=== PATIENT | male | born 1965 | race Caucasian/White ===

== ENCOUNTER 2017-06-27 16:17 | Inpatient (IN) | payer MEDICAID ==
[~2017-06-27] VITALS: Ht 182.9 cm; Wt 80.8 kg
[~2017-06-27 16:17] MED LIST: ATOR20TA40 PO; DILANTIN; FOLI1TAB90 PO; KEP500 PO; LIB25 PO; LISI-424 PO; METO50TE2 PO; MULT-405 PO; PANT40EC28 PO; PHEN1POW; THIA100T31 PO
--- NOTE | 2017-06-27 16:19 | NUR ---
PT BIBA BLS FOR GEN WEAK TO BED 1
[2017-06-27 16:20] VITALS: BP 111/66
--- NOTE | 2017-06-27 16:30 | NUR ---
PATIENT BIBA WITH COMPLAINTS OF ETOH USE AND GENERALIZED WEAKNESS. PATIENT REPORTS BEING SEEN AT [facility] YESTERDAY FOR SAME ISSUE BUT HE IS STILL NOT FEELING WELL. PATIENT HAS A HX OF EPILEPSY. DENIES N/V/D; SKIN IS PINK/WARM/DRY; AAOX4; LUNGS CLEAR BL; HR EVEN AND REGULAR; PT DENIES ANY FEVER, CP, SOB, OR COUGH AT THIS TIME; PATIENT STATES PAIN OF 8/10 AT THIS TIME; VSS; PATIENT POSITIONED FOR COMFORT; HOB ELEVATED; BEDRAILS UP X2; BED DOWN. ER MD MADE AWARE OF PT STATUS.
[2017-06-27] MEDS ORDERED: LORazepam 2 MG/ML VIAL IVP ONE (16:55)
[2017-06-27] MEDS ORDERED: MULTIVITAMIN-12 10 ML, THIAMINE 100 MG, MAGNESIUM SULFATE 50% 2,000 MG, FOLIC ACID 5 MG... IV ONE ×5 (16:55)
--- NOTE | 2017-06-27 17:31 | NUR ---
PT TAKEN TO CT
[2017-06-27 17:37] LABS: BASOPHILS # (AUTO) 0.1 K/uL (0.00-0.22); BASOPHILS % (AUTO) 1.1 % (0.0-2.0); EOSINOPHILS # (AUTO) 0.1 K/uL (0-0.4); EOSINOPHILS % (AUTO) 1.9 % (0.0-4.0); HEMATOCRIT 31.2 % (36-52); HEMOGLOBIN 10.3 g/dL (12.0-18.0); LYMPHOCYTES # (AUTO) 1.1 K/uL (2.0-11.5); LYMPHOCYTES % (AUTO) 22.1 % (20.5-51.1); MEAN CORPUSCULAR HEMOGLOBIN 29 pg (27-31); MEAN CORPUSCULAR HGB CONC 33 g/dL (33-37); MEAN CORPUSCULAR VOLUME 89.2 fL (80-94); MONOCYTES # (AUTO) 0.4 K/uL (0.8-1.0); MONOCYTES % (AUTO) 8.7 % (1.7-9.3); NEUTROPHILS # (AUTO) 3.2 K/uL (1.8-7.7); NEUTROPHILS % (AUTO) 66.2 % (42.2-75.2); PLATELET COUNT (AUTO) 135 K/uL (140-450); RED CELL DISTRIBUTION WIDTH 18.9 % (11.6-13.7); WHITE BLOOD COUNT (AUTO) 4.8 K/uL (4.8-10.8)
--- NOTE | 2017-06-27 17:45 | NUR ---
PATIENT BACK FROM CT
[2017-06-27 17:58] LABS: ALBUMIN 3.7 g/dL (3.4-5.0); ANION GAP 14.4 (8-16); CARBON DIOXIDE 27.8 mmol/L (21-32); CREATININE 0.8 mg/dL (0.7-1.3); POTASSIUM 4.2 mmol/L (3.5-5.1); TOTAL BILIRUBIN 0.5 mg/dL (0.0-1.0)
--- NOTE | 2017-06-27 18:30 | NUR ---
Oxygen applied at 2 L per minute via NASAL CANULA. 02 saturation 98% by pulse oximetry.
[2017-06-27] MEDS ORDERED: levETIRAcetam 500 MG in NACL 0.9% 100 ML IV SCH (18:45)
[2017-06-27] MEDS: NACL 0.9% 1,000 ML IV SCH (19:01)
[2017-06-27] MEDS ORDERED: MORPHINE SULFATE 4 MG/ML SYR IVP PRN (19:05)
[2017-06-27] MEDS ORDERED: HYDROcodone/APAP 7.5/325 MG 1 TAB PO PRN (19:05)
[2017-06-27] MEDS ORDERED: DOCUSATE SODIUM 100 MG GELCAP PO PRN (19:05)
[2017-06-27] MEDS ORDERED: ACETAMINOPHEN 325 MG TAB PO PRN (19:05)
[2017-06-27] MEDS ORDERED: ONDANSETRON 4 MG/2 ML VIAL IM/IVP PRN (19:05)
--- NOTE | 2017-06-27 19:15 | NUR ---
RECEIVED REPORT FROM AM NURSE. PT RESTING COMFORTABLY IN BED, RR EVEN AND UNLABORED. ALL NEEDS MET AT THIS TIME.
--- NOTE | 2017-06-27 19:20 | NUR ---
PER PT REQUEST, PT WANTED TO HAVE PT'S JEANS AND OTHER BELONGINGS THROWN AWAY, EMT AND RN AWARE.
--- NOTE | 2017-06-27 19:22 | NUR ---
PT'S REMAINING BELONGINGS TO BE SENT WITH PT.
[2017-06-27 19:25] VITALS: BP 109/72
--- NOTE | 2017-06-27 19:25 | NUR ---
RECEIVED REPORT FROM ER NURSE FOR CONTINUITY OF CARE. PT AWAKE AOX4. PT ON 2L NC. PT HAS BELONGINGS. PT HAS IV LFA 20G BANANA BAG IV 250ML/HR. NO SOB. NO S/S. OF DISTRESS. BED LOWERED. CALL LIGHT WITHIN REACH. PT ORIENTED TO ROOM. WILL CONTINUE TO MONITOR.
--- NOTE | 2017-06-27 19:30 | NUR ---
Patient will be admitted to care of GOVIL. Admited to TELE. Will go to room 112B. Belongings list completed. Report to AMINA DUGGAN AT BEDSIDE.
[2017-06-27 19:33] LABS: CHOL/HDL RATIO 1.9 (1-4.5); PHOSPHORUS 3.7 mg/dL (2.5-4.9); THYROID STIMULATING HORMONE 0.51 uIU/mL (0.34-3.74)
[2017-06-27 20:18] LABS: APPEARANCE,URINE CLEAR (CLEAR); BILIRUBIN,URINE NEGATIVE (NEGATIVE); BLOOD, URINE NEGATIVE (NEGATIVE); COLOR,URINE YELLOW (YELLOW); LEUKOCYTE ESTERASE ,URINE NEGATIVE (NEGATIVE); NITRITE, URINE NEGATIVE (NEGATIVE); UGLUCOSE NEGATIVE (NEGATIVE)
[2017-06-27 20:26] LABS: BARBITURATE, URINE NEG. ng/ml (NEG <=200); BENZODIAZEPINE, URINE POS. ng/mL (NEG <=200); CANNABINOID, URINE NEG. ng/mL (NEG <=50); COCAINE, URINE NEG. ng/mL (NEG <=300); OPIATE, URINE NEG. ng/mL (NEG <=2000); PHENCYCLIDINE SCREEN,URINE NEG. ng/mL (NEG <=25)
[2017-06-27] MEDS ORDERED: ATOR20TA PO (22:08)
[2017-06-27] MEDS ORDERED: METO25TE71 PO (22:08)
[2017-06-27] MEDS ORDERED: LISI5TAB18 PO (22:08)
[2017-06-27] MEDS ORDERED: PANT40EC PO (22:08)
[2017-06-27] MEDS ORDERED: LEVE500T9 PO (22:08)
[2017-06-27] MEDS ORDERED: MECLIZINE 25 MG TAB PO ONE (22:15)
[2017-06-28] VITALS: BP 134/87
--- NOTE | 2017-06-28 00:05 | NUR ---
ASSESSED PT VITALS PT AWAKE. WILL CONTINUE TO MONITOR.
--- NOTE | 2017-06-28 01:57 | NUR ---
ASSESSED PT. PT SLEEPING. NO SOB. NO S/S OF DISTRESS. WILL CONTINUE TO MONITOR.
--- NOTE | 2017-06-28 03:47 | NUR ---
ASSESSED PT. PT SLEEPING WILL CONTINUE TO MONITOR.
[2017-06-28 04:00] VITALS: BP 143/101
[2017-06-28] MEDS: LORazepam 1 MG TAB PO PRN ×4 (04:19→20:53)
[2017-06-28] MEDS: PANTOPRAZOLE 40 MG TABEC PO SCH (05:57)
[2017-06-28 06:20] LABS: T4 (THYROXINE) 5.1 ug/dL (4.5-12.0)
[2017-06-28 06:42] LABS: BASOPHILS % (AUTO) 1.2 % (0.0-2.0); EOSINOPHILS # (AUTO) 0.1 K/uL (0-0.4); EOSINOPHILS % (AUTO) 2.2 % (0.0-4.0); HEMATOCRIT 33.3 % (36-52); HEMOGLOBIN 10.9 g/dL (12.0-18.0); LYMPHOCYTES # (AUTO) 0.9 K/uL (2.0-11.5); LYMPHOCYTES % (AUTO) 20.6 % (20.5-51.1); MEAN CORPUSCULAR HEMOGLOBIN 29 pg (27-31); MEAN CORPUSCULAR HGB CONC 33 g/dL (33-37); MEAN CORPUSCULAR VOLUME 89.4 fL (80-94); MONOCYTES # (AUTO) 0.4 K/uL (0.8-1.0); MONOCYTES % (AUTO) 8.7 % (1.7-9.3); NEUTROPHILS # (AUTO) 2.8 K/uL (1.8-7.7); NEUTROPHILS % (AUTO) 67.3 % (42.2-75.2); PLATELET COUNT (AUTO) 129 K/uL (140-450); RED BLOOD CELL COUNT(AUTO) 3.72 MIL/uL (4.20-6.10); RED CELL DISTRIBUTION WIDTH 18.9 % (11.6-13.7); WHITE BLOOD COUNT (AUTO) 4.2 K/uL (4.8-10.8)
[2017-06-28 06:56] LABS: ANION GAP 14.8 (8-16); CARBON DIOXIDE 26.7 mmol/L (21-32); CREATININE 0.7 mg/dL (0.7-1.3); POTASSIUM 4.5 mmol/L (3.5-5.1)
[2017-06-28 07:00] LABS: MAGNESIUM 2.1 mg/dL (1.8-2.4); PHOSPHORUS 3.6 mg/dL (2.5-4.9)
--- NOTE | 2017-06-28 07:36 | NUR ---
GAVE REPORT TO DAYSHIFT NURSE AT BEDSIDE FOR CONTINUITY OF CARE.
--- NOTE | 2017-06-28 07:38 | NUR ---
RECEIVED BEDSIDE REPORT FROM GRANTS DIRECTOR NURSE. PATIENT IS AWAKE, ALERT AND ORIENTEDX4. NO SIGNS OF DISTRESS ON ROOM AIR. SEIZURE AND FALL PRECAUTIONS. IV ON L FA 20G NS AT 110ML/HR. IV IS CLEAN, DRY AND INTACT. SKIN IS INTACT BUT SCABS PRESENT ON KNEES. PATIENT ON TELE MONITOR. PATIENT IS UNSTEADY, BEDSIDE URINAL RECOMMENDED. TOLD HIM TO USE THE CALL LIGHT FOR ASSISTANCE WHEN AMBULATING. BED IN LOW POSITION. CALL LIGHT WITHIN REACH. WILL CONTINUE TO MONITOR THE PATIENT.
[2017-06-28 08:00] VITALS: BP 140/98
--- NOTE | 2017-06-28 08:07 | NUR ---
ORTHOSTATIC VITALS ARE FOLLOWS. LAYING B/P 140/98 HR 80. SITTING B/P 147/100 HR 72. STANDING B/P 141/89 HR 56. PATIENT IS VERY UNSTABLE TO AMBULATE. HE IS SHAKING AND HEART RATE DROPS TO 50'S. POLICE JUDGE ASSISTING WITH BED BATH AT THE MOMENT.
[2017-06-28] MEDS: chlordiazePOXIDE 25 MG CAP PO SCH ×3 (08:23→18:46)
[2017-06-28] MEDS: ASPIRIN 81 MG TAB.CHEW PO SCH (08:23)
[2017-06-28] MEDS: ATORVASTATIN 20 MG TAB PO SCH (08:24)
[2017-06-28] MEDS: METOPROLOL SUCCINATE 50 MG TABER PO SCH (08:24)
[2017-06-28] MEDS: MULTIVITAMIN 1 TAB PO SCH (08:24)
[2017-06-28] MEDS: FOLIC ACID 1 MG TAB PO SCH (08:24)
[2017-06-28] MEDS: levETIRAcetam 500 MG TAB PO SCH ×2 (08:24→20:52)
[2017-06-28] MEDS: THIAMINE 100 MG TAB PO SCH (08:25)
[2017-06-28] MEDS: LISINOPRIL 5 MG TAB PO SCH (08:25)
--- NOTE | 2017-06-28 08:27 | NUR ---
WILL REASSESS ORTHOSTATIC VITALS AT 10AM. ADMINISTERED MEDS ORDERED. PATIENT TOLERATED WELL. WILL CONTINUE TO MONITOR THE PATIENT.
[2017-06-28] MEDS ORDERED: NON-FORMULARY ITEM (Levetiracetam* (Keppra Xr*) 500 MG) PO SCH (09:00)
[2017-06-28] MEDS ORDERED: ATORVASTATIN 20 MG TAB PO SCH (09:00)
--- NOTE | 2017-06-28 09:09 | NUR ---
ECHO CANCELLED PER PHYSICIAN. LAST ECHO DONE ON 05-29-17.
--- NOTE | 2017-06-28 09:14 | NUR ---
PATIENT HAS BEEN SCREENED AND CATEGORIZED HIGH NUTRITION RISK. PATIENT WILL BE SEEN WITHIN 1-2 DAYS OF ADMISSION. 06/28/17 06/29/[address]
--- NOTE | 2017-06-28 09:47 | NUR ---
ORTHOSTATIC VITALS ARE FOLLOWED LAYING B/P 133/96 HR 92, SITTING B/P 135/98 HR 87, STANDING B/P 137/95 HR 119. WHEN STANDING HE HELD ON TO THE BED RAIL BECAUSE HE FEELS UNSTEADY AND SHAKY STILL. WILL TAKE HIM TO THE SHOWER AND SHAVE HIM AROUND 1000.
--- NOTE | 2017-06-28 11:00 | NUR ---
PATIENT SHOWERED WITH DEVOPS DEVELOPER ASSISTANCE AND SHAVED WITH DR SLOAN. PATIENT BACK IN BED IN STABLE CONDITION.
[2017-06-28 12:00] VITALS: BP 128/88
--- NOTE | 2017-06-28 12:22 | NUR ---
ADMINISTERED MEDS ORDERED. GAVE PRN ATIVAN FOR ALCOHOL WITHDRAWAL AND ANXIETY. WILL CONTINUE TO MONITOR THE PATIENT.
--- NOTE | 2017-06-28 14:40 | NUR ---
06/28/17 RD INITIAL ASSESSMENT COMPLETED PLEASE REFER TO NUTRITION ASSESSMENT UNDER CARE ACTIVITY FOR ESTIMATED NUTRITIONAL NEEDS. 1. CONTINUE NPO DIET MEDICALLY NECESSARY. 2. FOLLOW MD TO ADVANCE DIET ORDER. RECOMMEND REGULAR DIET WHEN APPROPRIATE. 3. PROVIDED PT WITH GENERAL DIET EDUCATION. 4. RD TO FOLLOW-UP 2-3 DAYS, HIGH RISK BEE SOTO RD
[2017-06-28] MEDS: NACL 0.9% 1,000 ML IV SCH ×3 (14:42→23:48)
--- NOTE | 2017-06-28 15:07 | NUR ---
PATIENT IS SLEEPING. NO SIGNS OF DISTRESS. WILL CONTINUE TO MONITOR THE PATIENT.
[2017-06-28 16:00] VITALS: BP 141/92
--- NOTE | 2017-06-28 17:00 | NUR ---
PATIENT IS SLEEPING. HE IS EASILY AROUSABLE. WILL CONTINUE TO MONITOR THE PATIENT.
--- NOTE | 2017-06-28 18:48 | NUR ---
ADMINISTERED MEDS. PATIENT TOLERATED WELL. WILL CONTINUE TO MONITOR THE PATIENT.
--- NOTE | 2017-06-28 19:10 | NUR ---
GAVE BEDSIDE REPORT. PATIENT IS IN STABLE CONDITION.
--- NOTE | 2017-06-28 19:12 | NUR ---
RECEIVED REPORT FROM DAY SHIFT NURSE LEE-RN. PT RESTING IN BED. AOX4, LEFT FA 20G WITH NS RUNNING AT 110ML/HR. SKIN INTACT-RIGHT KNEE SCAB. ON BEDREST. NO S/S OF RESPIRATORY DISTRESS OR DISCOMFORT NOTED AT THIS TIME. BED IN LOWEST POSITION, BED BREAKS ON, ALARM ON. BED SIDE TABLE AND CALL LIGHT WITHIN REACH. DISCUSSED PLAN OF CARE AND PT VERBALIZED UNDERSTANDING. WHITE BOARD UPDATED. WILL CONTINUE TO MONITOR.
[2017-06-28 20:00] VITALS: BP 136/82
--- NOTE | 2017-06-28 20:55 | NUR ---
VITAL SIGNS TAKEN, STABLE AT THIS TIME. SCHEDULED MEDICATION GIVEN. PT TOLERATED WELL. NO S/S OF RESPIRATORY DISTRESS OR DISCOMFORT NOTED AT THIS TIME. PT RETURNED BACK TO SLEEP. WILL CONTINUE TO MONITOR.
[2017-06-29] VITALS: BP 138/90
--- NOTE | 2017-06-29 | NUR ---
VITAL SIGNS TAKEN AND TOLERATED WELL. NO S/S OF RESPIRATORY DISTRESS OR DISCOMFORT NOTED. PT CONTINUES TO SLEEP.
--- NOTE | 2017-06-29 02:00 | NUR ---
PT CONTINUES TO SLEEP. WILL CONTINUE TO MONITOR.
[2017-06-29] MEDS: NACL 0.9% 1,000 ML IV SCH (02:10)
[2017-06-29] MEDS: LORazepam 1 MG TAB PO PRN (03:50)
[2017-06-29 04:00] VITALS: BP 129/90
--- NOTE | 2017-06-29 04:00 | NUR ---
VITAL SIGNS TAKEN AND TOLERATED WELL. NORCO GIVEN FOR HEADACHE AND BACK PAIN 05/23. NO S/S OF RESPIRATORY DISTRESS. WILL CONTINUE TO MONITOR.
[2017-06-29] MEDS: PANTOPRAZOLE 40 MG TABEC PO SCH (05:56)
--- NOTE | 2017-06-29 06:00 | NUR ---
SCHEDULED MEDICATION GIVEN AND TOLERATED WELL. NO S/S OF RESPIRATORY DISTRESS OR DISCOMFORT NOTED AT THIS TIME. WILL CONTINUE TO MONITOR.
[2017-06-29 06:23] LABS: BASOPHILS % (AUTO) 1.3 % (0.0-2.0); EOSINOPHILS # (AUTO) 0.2 K/uL (0-0.4); EOSINOPHILS % (AUTO) 4.8 % (0.0-4.0); HEMATOCRIT 35.2 % (36-52); HEMOGLOBIN 11.5 g/dL (12.0-18.0); LYMPHOCYTES # (AUTO) 0.6 K/uL (2.0-11.5); LYMPHOCYTES % (AUTO) 16.8 % (20.5-51.1); MEAN CORPUSCULAR HEMOGLOBIN 29 pg (27-31); MEAN CORPUSCULAR HGB CONC 33 g/dL (33-37); MEAN CORPUSCULAR VOLUME 89.1 fL (80-94); MONOCYTES # (AUTO) 0.4 K/uL (0.8-1.0); MONOCYTES % (AUTO) 11.2 % (1.7-9.3); NEUTROPHILS # (AUTO) 2.4 K/uL (1.8-7.7); NEUTROPHILS % (AUTO) 65.9 % (42.2-75.2); PLATELET COUNT (AUTO) 116 K/uL (140-450); RED BLOOD CELL COUNT(AUTO) 3.95 MIL/uL (4.20-6.10); RED CELL DISTRIBUTION WIDTH 19.5 % (11.6-13.7); WHITE BLOOD COUNT (AUTO) 3.7 K/uL (4.8-10.8)
[2017-06-29 06:40] LABS: ANION GAP 17.2 (8-16); CARBON DIOXIDE 24.9 mmol/L (21-32); CREATININE 0.7 mg/dL (0.7-1.3); POTASSIUM 4.1 mmol/L (3.5-5.1)
[2017-06-29 06:48] LABS: MAGNESIUM 1.9 mg/dL (1.8-2.4); PHOSPHORUS 4.3 mg/dL (2.5-4.9)
--- NOTE | 2017-06-29 07:20 | NUR ---
ENDORSED PT CARE TO DAY SHIFT NURSE-KY RN FOR CONTINUITY OF CARE. PT STABLE AT THIS TIME.
--- NOTE | 2017-06-29 07:21 | NUR ---
RECEIVED REPORT FROM SOFA INSPECTOR NURSE AT BEDSIDE FOR CONTINUITY OF CARE. PT RESTING IN BED. AOX4, IV TO LEFT FA 20G WITH NS RUNNING AT 110ML/HR. SKIN INTACT WITH RIGHT KNEE SCAB. PT ON BEDREST. USES URINAL. NO S/S OF RESPIRATORY DISTRESS OR DISCOMFORT NOTED AT THIS TIME. DISCUSSED PLAN OF CARE AND PT VERBALIZED UNDERSTANDING. WHITE BOARD UPDATED. SAFETY AND SEIZURE PRECAUTION IN PLACE, BED IN LOWEST POSITION, BED ALARM ON, BED SIDE TABLE AND CALL LIGHT WITHIN REACH. WILL CONTINUE TO MONITOR.
[2017-06-29 08:00] VITALS: BP 142/88
--- NOTE | 2017-06-29 08:15 | NUR ---
DOCTORS DOING THEIR ROUNDS. NEW ORDER IN FOR PATIENT. PATIENT NOW NO LONGER NPO, WILL BE ON REGULAR DIET. CALLED DIETARY AND SPOKE TO TYSON BOTTLE HOP, AND ASKED FOR A LATE BREAKFAST TRAY. TRAY WAS BROUGHT FOR PATIENT. PATIENT NOW SITTING UP IN BED EATING BREAKFAST. NO SIGNS OF DISTRESS OR SOB NOTED ON ROOM AIR. PATIENT DENIES PAIN AT THIS TIME. SAFETY AND SEIZURE PRECAUTION IN PLACE, CALL LIGHT WITHIN REACH. WILL CONTINUE TO MONITOR PATIENT.
[2017-06-29] MEDS: FOLIC ACID 1 MG TAB PO SCH (08:39)
[2017-06-29] MEDS: THIAMINE 100 MG TAB PO SCH (08:39)
[2017-06-29] MEDS: METOPROLOL SUCCINATE 50 MG TABER PO SCH (08:39)
[2017-06-29] MEDS: ASPIRIN 81 MG TAB.CHEW PO SCH (08:39)
[2017-06-29] MEDS: LISINOPRIL 5 MG TAB PO SCH (08:40)
[2017-06-29] MEDS: ATORVASTATIN 20 MG TAB PO SCH (08:40)
[2017-06-29] MEDS: chlordiazePOXIDE 25 MG CAP PO SCH ×2 (08:40→12:12)
[2017-06-29] MEDS: levETIRAcetam 500 MG TAB PO SCH (08:40)
[2017-06-29] MEDS: MULTIVITAMIN 1 TAB PO SCH (08:40)
--- NOTE | 2017-06-29 08:40 | NUR ---
ADMINISTERED ORDERED MEDICATIONS, PATIENT TOLERATED THEM WELL. PATIENT RESTING IN BED, NO SIGNS OF DISTRESS OR SOB NOTED ON ROOM AIR. PATIENT DENIES PAIN AT THIS TIME. SAFETY PRECAUTION IN PLACE, CALL LIGHT WITHIN REACH, WILL CONTINUE TO MONITOR PATIENT.
--- NOTE | 2017-06-29 10:43 | NUR ---
PATIENT RESTING IN BED, NO SIGNS OF DISTRESS OR SOB NOTED ON ROOM AIR. PATIENT DENIES PAIN AT THIS TIME. SAFETY AND SEIZURE PRECAUTION IN PLACE, CALL LIGHT WITHIN REACH. WILL CONTINUE TO MONITOR PATIENT.
[2017-06-29 12:00] VITALS: BP 128/84
[2017-06-29] MEDS ORDERED: LIB25 PO (12:06)
--- NOTE | 2017-06-29 12:10 | NUR ---
DISCHARGE ORDER IN. INFORMED PATIENT OF IMPENDING DISCHARGE. PATIENT REQUESTED BUS PASS. RN SPOKE TO NURSING REMOTE ENCODING CENTER MANAGER, ELEN, BUS PASS OBTAINED FOR PATIENT. PATIENT ALSO REQUESTED TO SPEAK TO TERRITORY SALES MANAGER. AVE, TERRITORY SALES MANAGER ON HIS CASE, INFORMED. SHE CAME AND SPOKE TO PATIENT. PATIENT WAS ALREADY PROVIDED RESOURCE PACKAGE. PATIENT NOW PARTIALLY CHANGED, WAITING ON SECURITY. SECURITY CAME, PATIENT NOW CHANGING AND GETTING READY FOR DISCHARGE. Addendum: 06/29/17 at 1410 by Colby Pinto RN DISREGARD NOTE WHERE SECURITY CAME. PATIENT AND RN STILL WAITING FOR SECURITY TO BRING PANTS FOR PATIENT.
--- NOTE | 2017-06-29 12:15 | NUR ---
ORDERED MEDICATIONS GIVEN. PATIENT TOLERATED IT WELL. PATIENT NOW EATING HIS LUNCH. NO SIGNS OF DISTRESS OR SOB NOTED. SAFETY PRECAUTION IN PLACE, CALL LIGHT WITHIN REACH, WILL CONTINUE TO MONITOR PATIENT.
[2017-06-29 12:26] LABS: FOLIC ACID 14.7 ng/mL (>3.0)
--- NOTE | 2017-06-29 12:40 | NUR ---
SECURITY PAGED FOR PANTS FOR PATIENT. PATIENT DISCHARGE INSTRUCTIONS AND EDUCATION GIVEN. PATIENT VERBALIZED UNDERSTANDING. IV REMOVED, IV CATHETER INTACT, MINIMAL BLEEDING NOTED. PATIENT ID BANDS REMOVED, TELE MONITOR REMOVED. PATIENT NOW WAITING FOR SECURITY TO COME AND BRING CLOTHING SO PATIENT CAN CHANGE AND BE DISCHARGE. Addendum: 06/29/17 at 1411 by Colby Pinto RN SECURITY CAME, PATIENT CHANGED AND IS READY FOR DISCHARGE.
--- NOTE | 2017-06-29 13:10 | NUR ---
PATIENT AMBULATED OFF THE FLOOR ACCOMPANIED BY RN. PATIENT TOOK ALL HIS BELONGINGS WITH HIM, PATIENT IN STABLE CONDITION. Addendum: 06/29/17 at 1419 by Colby Pinto RN BUS PASS WAS GIVEN TO PATIENT. PATIENT AMBULATED OUT OF HOSPITAL TO BUS STATION ACROSS THE STREET. PATIENT VERBALIZED PLANS ON TAKING THE BUS TO [facility].
== END 2017-06-29 13:10 | disposition home or self-care (01) | DRG 52 ==
LOC: MED 16:17 → MTU 19:04
PROVIDERS: ADMIT Family Medicine; ATTEND Family Medicine
DX: G92 Toxic encephalopathy (principal); K74.60 Unspecified cirrhosis of liver; K86.1 Other chronic pancreatitis; F10.229 Alcohol dependence with intoxication, unspecified; Y90.8 Blood alcohol level of 240 mg/100 ml or more; D64.9 Anemia, unspecified; G40.909 Epilepsy, unspecified, not intractable, without status epilepticus; I10 Essential (primary) hypertension; K21.9 Gastro-esophageal reflux disease without esophagitis; J45.909 Unspecified asthma, uncomplicated; Z81.1 Family history of alcohol abuse and dependence; G31.9 Degenerative disease of nervous system, unspecified; E86.0 Dehydration; F32.9 Major depressive disorder, single episode, unspecified; F41.9 Anxiety disorder, unspecified; M19.90 Unspecified osteoarthritis, unspecified site; F17.210 Nicotine dependence, cigarettes, uncomplicated; Z59.0 Homelessness
CPT/HCPCS: 36415; 70450; 71045; 76700; 80048; 80053; 80305; 81003; 82150; 82550; 82607; 82728; 82746; 83036; 83540; 83690; 83735; 83880; 84100; 84436; 84443; 84479; 84484; 85025; 85045; 85610; 85730; 87081; 93005; 93880; 96365; 96366; 96375; 99285; A9153; G0482; J2060; J3411; J3475; J3490; J7030; Q0092

== ENCOUNTER 2017-07-14 15:55 | Inpatient (IN) | payer MEDICAID ==
[~2017-07-14] VITALS: Ht 180.3 cm; Wt 72.6 kg
[~2017-07-14 15:55] MED LIST changes: -DILANTIN; -KEP500 PO; +LEVE500T9 PO; -LISI-424 PO; +LISI5TAB18 PO; +PANT40EC PO; -PHEN1POW
--- NOTE | 2017-07-14 15:57 | NUR ---
Patient to bed 7 by EMS at this time.
[2017-07-14 16:00] VITALS: BP 98/88
--- NOTE | 2017-07-14 16:05 | NUR ---
REPORT GIVEN TO AMINA BRADEN
--- NOTE | 2017-07-14 16:34 | NUR ---
PATIENT CAME IN WITH ETOH HISTORY OF SEIZURES. HE HAS A PAIN LEVEL OF 9
[2017-07-14] MEDS ORDERED: NACL 0.9% 1,000 ML IV ONE (16:35)
[2017-07-14] MEDS ORDERED: MULTIVITAMIN-12 10 ML, THIAMINE 100 MG, MAGNESIUM SULFATE 50% 2,000 MG, FOLIC ACID 5 MG... IV ONE ×5 (16:35)
[2017-07-14] MEDS ORDERED: MULTIVITAMIN-12 10 ML, THIAMINE 100 MG, MAGNESIUM SULFATE 50% 2,000 MG, FOLIC ACID 5 MG... IV SCH ×5 (16:58)
[2017-07-14 17:11] LABS: BASOPHILS # (AUTO) 0.1 K/uL (0.00-0.22); BASOPHILS % (AUTO) 1.7 % (0.0-2.0); EOSINOPHILS # (AUTO) 0.1 K/uL (0-0.4); EOSINOPHILS % (AUTO) 2.2 % (0.0-4.0); HEMATOCRIT 29.3 % (36-52); HEMOGLOBIN 9.6 g/dL (12.0-18.0); LYMPHOCYTES # (AUTO) 1.1 K/uL (2.0-11.5); LYMPHOCYTES % (AUTO) 35.1 % (20.5-51.1); MEAN CORPUSCULAR HEMOGLOBIN 29 pg (27-31); MEAN CORPUSCULAR HGB CONC 33 g/dL (33-37); MONOCYTES # (AUTO) 0.3 K/uL (0.8-1.0); MONOCYTES % (AUTO) 8.5 % (1.7-9.3); NEUTROPHILS # (AUTO) 1.7 K/uL (1.8-7.7); NEUTROPHILS % (AUTO) 52.5 % (42.2-75.2); PLATELET COUNT (AUTO) 115 K/uL (140-450); RED BLOOD CELL COUNT(AUTO) 3.26 MIL/uL (4.20-6.10); RED CELL DISTRIBUTION WIDTH 20.3 % (11.6-13.7); WHITE BLOOD COUNT (AUTO) 3.2 K/uL (4.8-10.8)
[2017-07-14 17:35] LABS: ANION GAP 13.3 (8-16); CARBON DIOXIDE 28.6 mmol/L (21-32); CHLORIDE 104 mmol/L (98-107); CREATININE 0.9 mg/dL (0.7-1.3); GFR ARICAN-AMERICAN 115 mL/min (>90); GLUCOSE 97 mg/dL (74-106); POTASSIUM 3.9 mmol/L (3.5-5.1); SODIUM SERUM 142 mmol/L (136-145); UREA NITROGEN, BLOOD 11 mg/dL (7-18)
[2017-07-14 17:41] LABS: ALBUMIN 3.4 g/dL (3.4-5.0); ASPARTATE AMINOTRANSFERASE 77 U/L (15-37); TOTAL BILIRUBIN 0.2 mg/dL (0.0-1.0)
[2017-07-14 17:46] LABS: SALICYLATE < 2.8 mg/dL (2.8-20.0)
[2017-07-14] MEDS ORDERED: NACL 0.9% 1,000 ML IV SCH (17:56)
[2017-07-14 18:30] LABS: ACETONE, SERUM NEGATIVE (NEGATIVE)
[2017-07-14 18:31] LABS: AMYLASE 92 U/L (25-115); LIPASE 477 U/L (73-393)
[2017-07-14] MEDS ORDERED: ACETAMINOPHEN 325 MG TAB PO PRN (18:50)
--- NOTE | 2017-07-14 18:59 | NUR ---
U/A WAS COLLECTED AND LAB WAS NOTIFIED
[2017-07-14 19:13] LABS: APPEARANCE,URINE CLEAR (CLEAR); BILIRUBIN,URINE NEGATIVE (NEGATIVE); BLOOD, URINE NEGATIVE (NEGATIVE); COLOR,URINE YELLOW (YELLOW); LEUKOCYTE ESTERASE ,URINE NEGATIVE (NEGATIVE); NITRITE, URINE NEGATIVE (NEGATIVE); UGLUCOSE NEGATIVE (NEGATIVE)
[2017-07-14 19:22] LABS: BARBITURATE, URINE NEG. ng/ml (NEG <=200); BENZODIAZEPINE, URINE POS. ng/mL (NEG <=200); CANNABINOID, URINE NEG. ng/mL (NEG <=50); COCAINE, URINE NEG. ng/mL (NEG <=300); OPIATE, URINE NEG. ng/mL (NEG <=2000); PHENCYCLIDINE SCREEN,URINE NEG. ng/mL (NEG <=25)
[2017-07-14 19:52] LABS: PROTHROMBIN TIME 12.8 secs (10.8-13.4)
--- NOTE | 2017-07-14 19:58 | NUR ---
Patient will be admitted to care of DR. AGUILLON. Admited to TELE. Will go to room 120A. Belongings list completed. Report to AMINA GUERIN.
[2017-07-14 20:01] LABS: CHOL/HDL RATIO 1.7 (1-4.5); FREE T4 (FREE THYROXINE) 0.8 ng/dL (0.76-1.46); MAGNESIUM 1.7 mg/dL (1.8-2.4); PHOSPHORUS 4.8 mg/dL (2.5-4.9); THYROID STIMULATING HORMONE 1.32 uIU/mL (0.34-3.74)
[2017-07-14 20:05] VITALS: BP 84/48
--- NOTE | 2017-07-14 20:05 | NUR ---
RECEIVED PT REPORT AT BEDSIDE FROM ER NURSE FOR CONTINUITY OF CARE. PT IS AAOX3. PT IS INTOXICATED WITH ALCOHOL AND ORDERED BEDREST. PT HAS NO SOB NO S/S OF DISTRESS. ON 2L NC O2. BED LOWERED ORIENTED TO ROOM. WILL CONTINUE TO MONITOR.
[2017-07-14] MEDS: DOCUSATE SODIUM 100 MG GELCAP PO SCH (21:00)
[2017-07-14] MEDS: NACL 0.9% 1,000 ML IV SCH (23:00)
--- NOTE | 2017-07-14 23:36 | NUR ---
PT AWAKE 1L OF BOLUS AND 1L OF BANANA BAG GIVEN. PT HAS URINAL WILL CONTINUE TO MONITOR LOW BP.
[2017-07-15] VITALS: BP 99/58
[2017-07-15 04:00] VITALS: BP 110/69
--- NOTE | 2017-07-15 06:53 | NUR ---
PATIENT HAS BEEN SCREENED AND CATEGORIZED HIGH NUTRITION RISK. PATIENT WILL BE SEEN WITHIN 1-2 DAYS OF ADMISSION. 07/15/17-07/16/[address] Addendum: 07/15/17 at [address] ADDENDUM: PATIENT HAS BEEN RESCREENED AND RE-CATEGORIZED MODERATE NUTRITION RISK. PATIENT WILL BE SEEN WITHIN 3-5 DAYS OF ADMISSION. 07/17/17-07/19/[address]
--- NOTE | 2017-07-15 07:29 | NUR ---
GAVE REPORT TO DAYSHIFT NURSE FOR CONTINUITY OF CARE.
--- NOTE | 2017-07-15 07:30 | NUR ---
RECEIVED REPORT FROM MEAT BONER NURSE OLGA LIDIA AT BEDSIDE FOR CONTINUITY OF CARE. PT IS AWAKE AND ORIENTED X4. INTRODUCED SELF AND UPDATED BOARD. PT DENIES PAIN. ON RA WITH O2 SAT 97%. NO SOB. LUNG SOUNDS CLEAR ON AUSCULTATION. SKIN WARM AND DRY. PT WITH BOILS ON NECK. PT EATING BREAKFAST IN BED NOW. NO SIGNS OF DISTRESS. CALL LIGHT WITHIN REACH. BED IN LOW POSITION. WILL CONTINUE TO MONITOR.
[2017-07-15 08:00] VITALS: BP 106/70
[2017-07-15] MEDS: DOCUSATE SODIUM 100 MG GELCAP PO SCH ×2 (09:00→20:36)
[2017-07-15] MEDS: FOLIC ACID 1 MG TAB PO SCH (09:23)
[2017-07-15] MEDS: MULTIVITAMIN 1 TAB PO SCH (09:23)
[2017-07-15] MEDS: chlordiazePOXIDE 25 MG CAP PO SCH ×3 (09:23→17:00)
--- NOTE | 2017-07-15 09:23 | NUR ---
ADMINISTERED SCHEDULED MEDS. NO ADMIN COLACE. PT STATED HE HAD DIARRHEA YESTERDAY AND REFUSED MED. TOLERATED ADMIN MEDS WELL. NO SIGNS OF DISTRESS. PT VOIDED IN URINAL 200ML OUTPUT. CALL LIGHT WITHIN REACH. WILL CONTINUE TO MONITOR.
[2017-07-15] MEDS: THIAMINE 100 MG TAB PO SCH (09:24)
--- NOTE | 2017-07-15 10:30 | NUR ---
PT USED BEDPAN AND HAD LARGE BM. CLEANED PT AND CHANGED LINENS AND GOWN. NO SIGNS OF DISTRESS. WILL CONTINUE TO MONITOR.
[2017-07-15 12:00] VITALS: BP 104/88
--- NOTE | 2017-07-15 12:57 | NUR ---
STARTED NEW IV TO R FA 20G. D/C IV TO L FA 18G. PT TOLERATED WELL. ADMINISTERED SCHEDULED MEDS. PT TOLERATED WELL. NO SIGNS OF DISTRESS. PT RESTING COMFORTABLY IN BED WATCHING TV AND SMILING. CALL LIGHT WITHIN REACH. BED IN LOW POSITION. WILL CONTINUE TO MONITOR.
[2017-07-15] MEDS ORDERED: METOPROLOL SUCCINATE 50 MG TABER PO SCH (13:57)
[2017-07-15] MEDS ORDERED: LISINOPRIL 5 MG TAB PO SCH (14:04)
--- NOTE | 2017-07-15 14:26 | NUR ---
PT BP WAS 141/87. ADMINISTERED METOPROLOL AND LISINOPRIL ORDERED. PT TOLERATED MEDS WELL. LYING COMFORTABLY IN BED RIGHT NOW WATCHING TV. CALL LIGHT WITHIN REACH. BED IN LOW POSITION. WILL CONTINUE TO MONITOR.
[2017-07-15] MEDS ORDERED: LACTULOSE 20 GM/30 ML UDC PO SCH (15:00)
[2017-07-15] MEDS ORDERED: MAG SULF 2000 MG/WATER PREMIX 50 ML IV SCH (15:00)
[2017-07-15] MEDS ORDERED: LIDOCAINE 1% 500 MG/50 ML VIAL INJ SCH (15:57)
[2017-07-15 16:00] VITALS: BP 129/88
[2017-07-15] MEDS ORDERED: LIDOCAINE 2% 1000 MG/50 ML VIAL INJ SCH (16:02)
[2017-07-15] MEDS: NACL 0.9% 1,000 ML IV SCH ×2 (16:06→23:49)
[2017-07-15] MEDS ORDERED: MORPHINE SULFATE 2 MG/ML SYR IVP PRN (16:20)
--- NOTE | 2017-07-15 16:30 | NUR ---
DR. BRANCH AT BEDSIDE FOR I&D OF POSTERIOR NECK ABSCESS. PROCEDURE DONE WITH LIDOCAINE INJ. PACKED WITH IODOFORM AND COVERED WITH GUAZE. PT TOLERATED WELL. CULTURE OF ABSCESS OBTAINED AND SENT TO LAB.
--- NOTE | 2017-07-15 17:30 | NUR ---
APPLIED K-PAD TO NECK. PT TOLERATING WELL. STATED "HIS NECK FEELS BETTER AND THE PAIN MEDICINE HELPED." NO SIGNS OF DISTRESS. CALL LIGHT WITHIN REACH. WILL CONTINUE TO MONITOR.
--- NOTE | 2017-07-15 19:10 | NUR ---
ENDORSED PT TO PUZZLE ASSEMBLER NURSE OLGA LIDIA AT BEDSIDE FOR CONTINUITY OF CARE. PT IN STABLE CONDITION.
--- NOTE | 2017-07-15 19:15 | NUR ---
RECEIVED REPORT AT BEDSIDE FROM DAYSNVFT NURSE FOR CONTINUITY OF CARE. PT AAOX4. PT IV NOTED RFA 20G NS 150ML/HR. NO SOB NO S/S OF DISTRESS. BED LOWERED CALL LIGHT WITHIN REACH WILL CONTINUE TO MONITOR.
[2017-07-15 20:00] VITALS: BP 151/90
[2017-07-15] MEDS: SULFAMETH/TRIMETH DS 800/160MG 1 TAB PO SCH (20:35)
[2017-07-15] MEDS: ATORVASTATIN 20 MG TAB PO SCH (20:36)
[2017-07-15] MEDS: LORazepam 2 MG/ML VIAL IVP PRN (20:37)
[2017-07-15] MEDS: levETIRAcetam 500 MG TAB PO SCH (20:37)
[2017-07-15] MEDS ORDERED: levETIRAcetam 500 MG TAB PO SCH (21:00)
[2017-07-16] VITALS: BP 128/90
[2017-07-16] MEDS: oxyCODONE/APAP 5/325 MG 1 TAB TAB PO PRN ×2 (02:20→18:36)
[2017-07-16 04:00] VITALS: BP 126/95
[2017-07-16] MEDS: NACL 0.9% 1,000 ML IV SCH ×3 (05:47→22:51)
[2017-07-16] MEDS: PANTOPRAZOLE 40 MG TABEC PO SCH (05:47)
[2017-07-16] MEDS ORDERED: PANTOPRAZOLE 40 MG TABEC PO SCH (06:30)
--- NOTE | 2017-07-16 07:25 | NUR ---
GAVE REPORT TO DAYSHIFT NURSE AT BEDSIDE FOR CONTINUITY OF CARE. WILL CONTINUE TO MONITOR.
--- NOTE | 2017-07-16 07:26 | NUR ---
RECEIVED REPORT FROM MENTAL HEALTH CASE MANAGER NURSE OLGA LIDIA AT BEDSIDE FOR CONTINUITY OF CARE. PT IS AWAKE AND ORIENTED. INTRODUCED SELF AND UPDATED BOARD. PT NPO STATUS. DENIES PAIN. DRESSING TO POSTERIOR NECK DRY AND INTACT. K-PAD APPLIED TO NECK. TOLERATING WELL. NO SIGNS OF DISTRESS. CALL LIGHT WITHIN REACH. BED IN LOW POSITION, WHEELS LOCKED. WILL CONTINUE TO MONITOR.
[2017-07-16 07:37] LABS: HEMATOCRIT 33.9 % (36-52); HEMOGLOBIN 11.1 g/dL (12.0-18.0); MEAN CORPUSCULAR HEMOGLOBIN 29 pg (27-31); MEAN CORPUSCULAR HGB CONC 33 g/dL (33-37); MEAN CORPUSCULAR VOLUME 89.8 fL (80-94); RED BLOOD CELL COUNT(AUTO) 3.77 MIL/uL (4.20-6.10); RED CELL DISTRIBUTION WIDTH 19.6 % (11.6-13.7); WHITE BLOOD COUNT (AUTO) 3.5 K/uL (4.8-10.8)
[2017-07-16 07:44] LABS: PHOSPHORUS 3.6 mg/dL (2.5-4.9)
[2017-07-16 07:49] LABS: PLATELET COUNT (AUTO) 130 K/uL (140-450)
[2017-07-16 08:00] VITALS: BP 119/87
[2017-07-16 08:08] LABS: LYMPHOCYTES % (MANUAL) 36 % (20-46); MONOCYTES % (MANUAL) 9 % (5-12)
[2017-07-16] MEDS ORDERED: METOPROLOL SUCCINATE 50 MG TABER PO SCH (09:00)
[2017-07-16] MEDS ORDERED: LISINOPRIL 5 MG TAB PO SCH (09:00)
[2017-07-16] MEDS: DOCUSATE SODIUM 100 MG GELCAP PO SCH ×2 (09:00→21:00)
[2017-07-16] MEDS ORDERED: ATORVASTATIN 20 MG TAB PO SCH (09:00)
[2017-07-16] MEDS: chlordiazePOXIDE 25 MG CAP PO SCH ×3 (09:09→16:16)
[2017-07-16] MEDS: FOLIC ACID 1 MG TAB PO SCH (09:10)
[2017-07-16] MEDS: LISINOPRIL 5 MG TAB PO SCH (09:10)
[2017-07-16] MEDS: METOPROLOL SUCCINATE 50 MG TABER PO SCH (09:10)
[2017-07-16] MEDS: THIAMINE 100 MG TAB PO SCH (09:10)
[2017-07-16] MEDS: MULTIVITAMIN 1 TAB PO SCH (09:11)
[2017-07-16] MEDS: CALCIUM CARB 600 MG TAB PO SCH (09:11)
[2017-07-16] MEDS: SULFAMETH/TRIMETH DS 800/160MG 1 TAB PO SCH ×2 (09:11→21:11)
[2017-07-16] MEDS: levETIRAcetam 500 MG TAB PO SCH ×2 (09:11→21:11)
[2017-07-16 12:00] VITALS: BP 138/88
[2017-07-16] MEDS: LORazepam 2 MG/ML VIAL IVP PRN (13:21)
--- NOTE | 2017-07-16 13:21 | NUR ---
PT REQUESTED ATIVAN. STATED HE WAS FEELING A LITTLE SHAKY AND ANXIOUS. ADMINISTERED ATIVAN IVP. PT TOLERATED WELL. IV PUMP WAS BEEPING, PRIMED LINE. NO SIGNS OF DISTRESS. CALL LIGHT WITHIN REACH. WILL CONTINUE TO MONITOR.
[2017-07-16] MEDS: metroNIDAZOLE 250 MG/NS PREMIX 50 ML IV SCH ×2 (14:26→21:10)
--- NOTE | 2017-07-16 15:00 | NUR ---
PT SLEEPING IN BED COMFORTABLY. NO SIGNS OF DISTRESS. VOIDED IN URINAL 500ML. CALL LIGHT WITHIN REACH.
[2017-07-16 15:03] LABS: ANION GAP 14.1 (8-16); CARBON DIOXIDE 27.1 mmol/L (21-32); CREATININE 0.8 mg/dL (0.7-1.3); POTASSIUM 4.2 mmol/L (3.5-5.1)
[2017-07-16 16:00] VITALS: BP 120/76
--- NOTE | 2017-07-16 19:15 | NUR ---
ENDORSED PT TO FIELD CARE ADVOCATE NURSE LEANDER AT BEDSIDE FOR CONTINUITY OF CARE. PT IN STABLE CONDITION.
--- NOTE | 2017-07-16 19:16 | NUR ---
RECEIVED REPORT FROM DAY SHIFT NURSE. AAOX4. NO C/O PAIN. NO RESP DISTRESS NOTED. IV TO RIGHT FA #20G, NS AT 100 ML INFUSING WELL. DRESSING TO POSTERIOR NECK CLEAN, DRY AND INTACT, DISCUSSED PLAN OF CARE, PT VERBALIZED UNDERSTANDING. FALL AND SEIZURE PRECAUTION IN PLACE. CALL LIGHT WITHIN REACH.
[2017-07-16 20:00] VITALS: BP 135/86
[2017-07-16] MEDS: ATORVASTATIN 20 MG TAB PO SCH (21:11)
--- NOTE | 2017-07-16 21:30 | NUR ---
PT REFUSED COLACE. PT STATED HE HAD SOFT STOOL THIS MORNING.
[2017-07-17] VITALS: BP 117/78
[2017-07-17] MEDS: LORazepam 2 MG/ML VIAL IVP PRN (00:03)
--- NOTE | 2017-07-17 00:07 | NUR ---
PT STATED HE'S ANXIOUS. ATIVAN 2 MG IVP GIVEN. NO DISTRESS NOTED.
--- NOTE | 2017-07-17 03:16 | NUR ---
PT SLEEPING BUT EASILY AROUSABLE. RESP EVEN AND UNLABORED. NO S/S OF PAIN OR DISCOMFORT. FALL AND SEIZURE PRECAUTION IN PLACE. CALL LIGHT WITHIN REACH.
[2017-07-17 04:00] VITALS: BP 119/71
[2017-07-17] MEDS: metroNIDAZOLE 250 MG/NS PREMIX 50 ML IV SCH ×2 (04:33→13:18)
--- NOTE | 2017-07-17 05:40 | NUR ---
PT RESTING IN BED WITH EYES CLOSED. NO S/S OF DISTRESS NOTED. NO S/S OF PAIN OR DISCOMFORT. CALL LIGHT WITHIN REACH.
[2017-07-17] MEDS: PANTOPRAZOLE 40 MG TABEC PO SCH (05:54)
[2017-07-17 06:25] LABS: BASOPHILS % (AUTO) 1.5 % (0.0-2.0); EOSINOPHILS # (AUTO) 0.2 K/uL (0-0.4); EOSINOPHILS % (AUTO) 6.7 % (0.0-4.0); HEMOGLOBIN 10.8 g/dL (12.0-18.0); LYMPHOCYTES # (AUTO) 0.8 K/uL (2.0-11.5); LYMPHOCYTES % (AUTO) 23.9 % (20.5-51.1); MEAN CORPUSCULAR HEMOGLOBIN 30 pg (27-31); MEAN CORPUSCULAR HGB CONC 33 g/dL (33-37); MEAN CORPUSCULAR VOLUME 90.1 fL (80-94); MONOCYTES # (AUTO) 0.3 K/uL (0.8-1.0); MONOCYTES % (AUTO) 10.4 % (1.7-9.3); NEUTROPHILS # (AUTO) 1.9 K/uL (1.8-7.7); NEUTROPHILS % (AUTO) 57.5 % (42.2-75.2); PLATELET COUNT (AUTO) 129 K/uL (140-450); RED BLOOD CELL COUNT(AUTO) 3.67 MIL/uL (4.20-6.10); RED CELL DISTRIBUTION WIDTH 19.3 % (11.6-13.7); WHITE BLOOD COUNT (AUTO) 3.4 K/uL (4.8-10.8)
[2017-07-17 06:44] LABS: ANION GAP 13.5 (8-16); CARBON DIOXIDE 24.3 mmol/L (21-32); CREATININE 0.8 mg/dL (0.7-1.3); POTASSIUM 3.8 mmol/L (3.5-5.1)
[2017-07-17 06:58] LABS: MAGNESIUM 1.8 mg/dL (1.8-2.4); PHOSPHORUS 4.1 mg/dL (2.5-4.9)
--- NOTE | 2017-07-17 07:15 | NUR ---
ENDORSED PT TO DAY SHIFT NURSE. PT IN STABLE CONDITION.
--- NOTE | 2017-07-17 07:30 | NUR ---
RECEIVED REPORT FROM DAY ROBOTIC MACHINE OPERATOR NURSE. PT IS AAOX4. NO C/O PAIN AT THIS TIME. NO RESP DISTRESS NOTED. IV TO RIGHT FA #20G, NS AT 100 ML INFUSING WELL, DRESSING POSTERIOR NECK NOTED, DRESSING DRY AND INTACT, DISCUSSED PLAN OF CARE, PT VERBALIZED UNDERSTANDING. FALL AND SEIZURE PRECAUTION IN PLACE. CALL LIGHT WITHIN REACH.
[2017-07-17 08:00] VITALS: BP 118/80
[2017-07-17] MEDS: NACL 0.9% 1,000 ML IV SCH (08:51)
[2017-07-17] MEDS: DOCUSATE SODIUM 100 MG GELCAP PO SCH ×2 (09:00→09:33)
[2017-07-17 09:07] LABS: TRANSFERRIN 303 mg/dL (200-370)
[2017-07-17] MEDS: levETIRAcetam 500 MG TAB PO SCH (09:30)
[2017-07-17] MEDS: THIAMINE 100 MG TAB PO SCH (09:30)
[2017-07-17] MEDS: MULTIVITAMIN 1 TAB PO SCH (09:31)
[2017-07-17] MEDS: SULFAMETH/TRIMETH DS 800/160MG 1 TAB PO SCH (09:32)
[2017-07-17] MEDS: chlordiazePOXIDE 25 MG CAP PO SCH ×3 (09:32→17:07)
[2017-07-17] MEDS: CALCIUM CARB 600 MG TAB PO SCH (09:34)
[2017-07-17] MEDS: METOPROLOL SUCCINATE 50 MG TABER PO SCH (09:35)
[2017-07-17] MEDS: LISINOPRIL 5 MG TAB PO SCH (09:35)
[2017-07-17] MEDS: FOLIC ACID 1 MG TAB PO SCH (09:36)
--- NOTE | 2017-07-17 09:41 | NUR ---
SOME MEDS DONT SCAN, MANUALLY ENTERED BARCODE
[2017-07-17 12:00] VITALS: BP 129/82
[2017-07-17] MEDS: oxyCODONE/APAP 5/325 MG 1 TAB TAB PO PRN (13:18)
[2017-07-17 16:00] VITALS: BP 135/95
--- NOTE | 2017-07-17 16:00 | NUR ---
DRESSING TO POSTERIOR NECK CHANGED, SEE WOUND ASSESSMENT NOTES
[2017-07-17] MEDS ORDERED: SULF1TAB12 PO (16:09)
[2017-07-17] MEDS ORDERED: PANT40EC28 PO (16:09)
--- NOTE | 2017-07-17 17:20 | NUR ---
PT DISCHARGED PER MD ORDER. DISCHARGE INSTRUCTION AND MED TEACHING PROVIDED. PT VERBALIZED UNDERSTANDING. PT IN STABLE CONDITION. NO S/S OF ACUTE DISTRESS NOTED. DENIES PAIN AT THIS TIME. PT IS AWARE OF HIS SCHEDULED APPT. WHEELED PT TO LOBBY. HOMELESS RESOURCES PROVIDED. TWO BUS PASSES PROVIDED. PT TOOK ALL HIS BELONGINGS.
[2017-07-18 07:17] LABS: FOLIC ACID > 20.00 ng/mL (>3.0)
[2017-07-18 14:02] LABS: FERRITIN 24 ng/mL (30-400)
== END 2017-07-17 17:20 | disposition home or self-care (01) | DRG 951 ==
LOC: MED 15:55 → MTU 18:53
PROVIDERS: ADMIT General Practice; ATTEND General Practice
PROC: 0W960ZZ Drainage of Neck, Open Approach (ICD-10-PCS; principal; 2017-07-15)
DX: F10.129 Alcohol abuse with intoxication, unspecified (principal); G92 Toxic encephalopathy; I95.9 Hypotension, unspecified; L02.11 Cutaneous abscess of neck; K70.30 Alcoholic cirrhosis of liver without ascites; K72.90 Hepatic failure, unspecified without coma; E83.42 Hypomagnesemia; K86.1 Other chronic pancreatitis; D64.9 Anemia, unspecified; G40.909 Epilepsy, unspecified, not intractable, without status epilepticus; I10 Essential (primary) hypertension; Y90.8 Blood alcohol level of 240 mg/100 ml or more; K21.9 Gastro-esophageal reflux disease without esophagitis; M06.9 Rheumatoid arthritis, unspecified; Z59.0 Homelessness; M19.90 Unspecified osteoarthritis, unspecified site; F14.90 Cocaine use, unspecified, uncomplicated
CPT/HCPCS: 36415; 70450; 71045; 80048; 80053; 80305; 81003; 82009; 82140; 82150; 82550; 82607; 82728; 82746; 83036; 83540; 83605; 83690; 83735; 83880; 84100; 84439; 84443; 84484; 85025; 85045; 85610; 85730; 87070; 87075; 87081; 87186; 87205; 93005; 99285; A9153; G0480; G0482; J2001; J2060; J2270; J3411; J3475; J3490; J7030

== ENCOUNTER 2017-07-25 23:02 | Emergency (ER) | payer MEDICAID ==
[~2017-07-25] VITALS: Ht 180.3 cm; Wt 77.1 kg
[~2017-07-25 23:02] MED LIST changes: +SULF1TAB12 PO
--- NOTE | 2017-07-25 23:04 | NUR ---
PT BIBA BLS. TAKEN TO BED 9
[2017-07-25 23:10] VITALS: BP 109/75
--- NOTE | 2017-07-25 23:15 | NUR ---
51YO M BIBA ETOH, ALOC. ALERT AND ORIENTED X3. DOES NOT KNOW DATE. PT IS HOMLESS AND FOUND ALTERD. PT ADMITS TO DRINKING AN UNKNOW AMOUNT. PMH SEIZURES, CIRROHSIS, PANCREATITIS, GI BLEED
--- NOTE | 2017-07-25 23:38 | NUR ---
Dr. Napier evaluating patient at bedside.
--- NOTE | 2017-07-25 23:48 | NUR ---
PT O2 SAT AT 88. N/C APPLIED AT 3L O2 SAT AT 100%
--- NOTE | 2017-07-25 23:53 | NUR ---
PT STATES HE IS HUNGRY, JOSÉ MIGUEL AUGUSTIN OK W/ PT HAVING SANDWICH, HOUSE SUP CALLED PT PROVIDED W/ SANDWICH .
--- NOTE | 2017-07-26 01:00 | NUR ---
PT IN BED SLEEPING, VSS, WILL CONTINUE TO MONITOR.
[2017-07-26 03:28] VITALS: BP 108/70
--- NOTE | 2017-07-26 03:29 | NUR ---
Patient discharged with v/s stable. Written and verbal after care instructions given and explained. Patient verbalized understanding. Ambulatory with steady gait. All questions addressed prior to discharge. Advised to follow up with PMD.
== END 2017-07-26 03:29 | disposition home or self-care (01) ==
LOC: MED 23:02
DX: F10.10 Alcohol abuse, uncomplicated (principal); J45.909 Unspecified asthma, uncomplicated; K21.9 Gastro-esophageal reflux disease without esophagitis; I10 Essential (primary) hypertension; Z79.899 Other long term (current) drug therapy
CPT/HCPCS: 99283

== ENCOUNTER 2017-07-27 20:27 | Emergency (ER) | payer MEDICAID ==
[~2017-07-27] VITALS: Ht 180.3 cm; Wt 74.8 kg
[2017-07-27 20:27] VITALS: BP 99/57
[2017-07-27] MEDS ORDERED: NACL 0.9% 1,000 ML IV ONE (20:40)
[2017-07-27 20:56] LABS: BASOPHILS # (AUTO) 0.1 K/uL (0.00-0.22); BASOPHILS % (AUTO) 1.6 % (0.0-2.0); EOSINOPHILS # (AUTO) 0.2 K/uL (0-0.4); HEMATOCRIT 30.6 % (36-52); HEMOGLOBIN 10.1 g/dL (12.0-18.0); LYMPHOCYTES # (AUTO) 1.2 K/uL (2.0-11.5); LYMPHOCYTES % (AUTO) 35.9 % (20.5-51.1); MEAN CORPUSCULAR HEMOGLOBIN 29 pg (27-31); MEAN CORPUSCULAR HGB CONC 33 g/dL (33-37); MEAN CORPUSCULAR VOLUME 87.8 fL (80-94); MONOCYTES # (AUTO) 0.3 K/uL (0.8-1.0); MONOCYTES % (AUTO) 9.5 % (1.7-9.3); NEUTROPHILS # (AUTO) 1.7 K/uL (1.8-7.7); PLATELET COUNT (AUTO) 208 K/uL (140-450); RED BLOOD CELL COUNT(AUTO) 3.49 MIL/uL (4.20-6.10); RED CELL DISTRIBUTION WIDTH 19.2 % (11.6-13.7); WHITE BLOOD COUNT (AUTO) 3.5 K/uL (4.8-10.8)
[2017-07-27 21:13] LABS: ALBUMIN 3.4 g/dL (3.4-5.0); CARBON DIOXIDE 29.4 mmol/L (21-32); CREATININE 0.9 mg/dL (0.7-1.3); POTASSIUM 4.4 mmol/L (3.5-5.1); TOTAL BILIRUBIN 0.2 mg/dL (0.0-1.0)
[2017-07-28] MEDS ORDERED: KETOROLAC 30 MG/ML VIAL IVP ONE (04:20)
[2017-07-28 05:13] VITALS: BP 144/97
== END 2017-07-28 05:13 | disposition home or self-care (01) ==
LOC: MED 20:27
DX: F10.129 Alcohol abuse with intoxication, unspecified (principal); R10.9 Unspecified abdominal pain; J45.909 Unspecified asthma, uncomplicated; K21.9 Gastro-esophageal reflux disease without esophagitis; I10 Essential (primary) hypertension; F17.210 Nicotine dependence, cigarettes, uncomplicated
CPT/HCPCS: 36415; 80053; 85025; 96361; 96374; 99284; G0482; J1885; J7030

== ENCOUNTER 2017-08-06 19:29 | Emergency (ER) | payer MEDICAID ==
[~2017-08-06] VITALS: Ht 180.3 cm; Wt 72.6 kg
[2017-08-06 19:31] VITALS: BP 123/76
--- NOTE | 2017-08-06 19:31 | NUR ---
BIBA TO ER BED 11
--- NOTE | 2017-08-06 19:31 | NUR ---
PATIENT PRESENTS TO ED WITH GENERALIZED BODY PAINA AND ETOH. BIB EMS. 911 CALLED BY BHUPENDRA WHO SAW PT'S SIGNIFICANT OTHER HARRASING HIM. PT STATES GENERALIZED PAIN AND HAS, "DRANK A LOT OF ALCOHOL TODAY." DENIES N/V/D; SKIN IS PINK/WARM/DRY; AAOX4 WITH EVEN AND UNSTEADY GAIT; LUNGS CLEAR BL; HR EVEN AND REGULAR; PT DENIES ANY FEVER, CP, SOB, OR COUGH AT THIS TIME; PATIENT STATES PAIN OF 8/10 AT THIS TIME; VSS; PATIENT POSITIONED FOR COMFORT; HOB ELEVATED; BEDRAILS UP X2; BED DOWN. ER MD MADE AWARE OF PT STATUS. CONTINUE TO MONITOR.
[2017-08-06] MEDS ORDERED: MULTIVITAMIN-12 10 ML, THIAMINE 100 MG, MAGNESIUM SULFATE 50% 2,000 MG, FOLIC ACID 1 MG... IV ONE ×5 (19:50)
[2017-08-06] MEDS ORDERED: NACL 0.9% 1,000 ML IV ONE (19:50)
[2017-08-06] MEDS ORDERED: FOLIC ACID 5 MG/ML SYR ONE (19:58)
[2017-08-06] MEDS ORDERED: MULTIVITAMIN-12 10 ML VIAL IV ONE (19:58)
[2017-08-06] MEDS ORDERED: THIAMINE 200 MG/2 ML VIAL ONE (19:58)
[2017-08-06] MEDS ORDERED: MAGNESIUM SULFATE 50% 1000 MG/2 ML VIAL IV ONE (19:58)
[2017-08-06 20:21] LABS: BASOPHILS % (AUTO) 0.9 % (0.0-2.0); EOSINOPHILS # (AUTO) 0.1 K/uL (0-0.4); HEMATOCRIT 35.6 % (36-52); HEMOGLOBIN 11.7 g/dL (12.0-18.0); LYMPHOCYTES # (AUTO) 0.7 K/uL (2.0-11.5); MEAN CORPUSCULAR HEMOGLOBIN 29 pg (27-31); MEAN CORPUSCULAR HGB CONC 33 g/dL (33-37); MEAN CORPUSCULAR VOLUME 87.5 fL (80-94); MONOCYTES # (AUTO) 0.3 K/uL (0.8-1.0); MONOCYTES % (AUTO) 8.8 % (1.7-9.3); NEUTROPHILS # (AUTO) 2.4 K/uL (1.8-7.7); NEUTROPHILS % (AUTO) 67.3 % (42.2-75.2); PLATELET COUNT (AUTO) 65 K/uL (140-450); RED BLOOD CELL COUNT(AUTO) 4.06 MIL/uL (4.20-6.10); RED CELL DISTRIBUTION WIDTH 19.5 % (11.6-13.7); WHITE BLOOD COUNT (AUTO) 3.6 K/uL (4.8-10.8)
[2017-08-06 20:36] LABS: ALBUMIN 4.5 g/dL (3.4-5.0); ANION GAP 19.7 (8-16); CARBON DIOXIDE 24.8 mmol/L (21-32); CREATININE 1.1 mg/dL (0.7-1.3); POTASSIUM 4.5 mmol/L (3.5-5.1); TOTAL BILIRUBIN 0.5 mg/dL (0.0-1.0)
--- NOTE | 2017-08-06 21:00 | NUR ---
PT IN BED RESTING WITH EYES CLOSED. VSS. CONTINUE TO MONITOR.
--- NOTE | 2017-08-06 23:00 | NUR ---
PT IN BED RESTING WITH EYES CLOSED. VSS. CONTINUE TO MONITOR.
[2017-08-07 00:30] VITALS: BP 128/71
--- NOTE | 2017-08-07 00:30 | NUR ---
Patient presented to facility under the influence of Alcohol. Patient is currently ambulatory with steady gait, able to walk unassisted. Positive gag reflex. Alert and oriented. Is not driving self for discharge out of facility.Patient discharged with v/s stable. Written and verbal after care instructions given and explained. Patient verbalized understanding. Ambulatory with steady gait. All questions addressed prior to discharge. Advised to follow up with PMD.
== END 2017-08-07 00:30 | disposition home or self-care (01) ==
LOC: MED 19:29
DX: F10.129 Alcohol abuse with intoxication, unspecified (principal); J45.909 Unspecified asthma, uncomplicated; K21.9 Gastro-esophageal reflux disease without esophagitis; I10 Essential (primary) hypertension; Z79.899 Other long term (current) drug therapy
CPT/HCPCS: 80053; 85025; 96365; 96366; 99285; A9153; G0482; J3411; J3475; J3490; J7030

== ENCOUNTER 2017-08-11 12:46 | Emergency (ER) | payer MEDICAID ==
[~2017-08-11] VITALS: Ht 180.3 cm; Wt 77.1 kg
--- NOTE | 2017-08-11 12:48 | NUR ---
PT BIBA BLS TO BED 11
[2017-08-11 12:49] VITALS: BP 93/56
--- NOTE | 2017-08-11 12:50 | NUR ---
51YO M BIBA FOR GENERALIZED WEAKNESS AND ETOH. PT AWAKE AND ALERT AND ORIENTED. PER PARAMEDICS, PATIENT FOUND BEHIND STORE BY THE DUMSTER. SMELL OF ALCOHOL. PT ADMITS TO DRINKING PINT OF VODKA LAST NIGHT AND A BEER THIS MORNING. NO MEAL X3 DAYS PER PATIENT. NOT TAKING HIS MEDS/STOLEN FROM HIM. USED TO TAKE KEPPRA UNK. DOSAGE. PT STATES N/V, BS ACTIVE X4, ABD SOFT AND TENDER, PT STATES ABD IS "ALWASY SENSITIVE" . LS CLEAR THROUGHOUT. HX: ALCOHOLISM,DEPRESSION,SEIZURE,ANXIETY BP FIELD 87/70 STARTED IVD NSS BOLUS
[2017-08-11] MEDS ORDERED: MULTIVITAMIN-12 10 ML, THIAMINE 100 MG, MAGNESIUM SULFATE 50% 2,000 MG, FOLIC ACID 5 MG... IV ONE ×5 (13:05)
[2017-08-11] MEDS ORDERED: MULTIVITAMIN-12 10 ML, THIAMINE 100 MG, MAGNESIUM SULFATE 50% 2,000 MG, FOLIC ACID 5 MG... IV SCH ×5 (13:15)
[2017-08-11 13:30] LABS: HEMATOCRIT 29.3 % (36-52); HEMOGLOBIN 9.6 g/dL (12.0-18.0); MEAN CORPUSCULAR HEMOGLOBIN 30 pg (27-31); MEAN CORPUSCULAR HGB CONC 33 g/dL (33-37); MEAN CORPUSCULAR VOLUME 90.5 fL (80-94); PLATELET COUNT (AUTO) 60 K/uL (140-450); RED BLOOD CELL COUNT(AUTO) 3.24 MIL/uL (4.20-6.10); RED CELL DISTRIBUTION WIDTH 20.1 % (11.6-13.7); WHITE BLOOD COUNT (AUTO) 2.1 K/uL (4.8-10.8)
[2017-08-11 13:59] LABS: EOSINOPHILS % (MANUAL) 6 % (0-4); LYMPHOCYTES % (MANUAL) 31 % (20-46); MONOCYTES % (MANUAL) 5 % (5-12)
[2017-08-11 14:36] LABS: ANION GAP 18.1 (8-16); CARBON DIOXIDE 21.7 mmol/L (21-32); CHLORIDE 101 mmol/L (98-107); CREATININE 1.3 mg/dL (0.7-1.3); GFR ARICAN-AMERICAN 75 mL/min (>90); GLUCOSE 86 mg/dL (74-106); POTASSIUM 3.8 mmol/L (3.5-5.1); SODIUM SERUM 137 mmol/L (136-145); UREA NITROGEN, BLOOD 10 mg/dL (7-18)
[2017-08-11 14:41] LABS: ALBUMIN 3.6 g/dL (3.4-5.0); ASPARTATE AMINOTRANSFERASE 127 U/L (15-37); SALICYLATE < 2.8 mg/dL (2.8-20.0); TOTAL BILIRUBIN 0.3 mg/dL (0.0-1.0)
[2017-08-11 14:42] LABS: ACETAMINOPHEN < 0.5 ug/ml (10-30)
--- NOTE | 2017-08-11 15:30 | NUR ---
PT OFFERED FOOD TRAY.
--- NOTE | 2017-08-11 17:20 | NUR ---
PT RESTING IN NO APPEARENT DISTRESS, WILL CONTINUE TO MONITOR
[2017-08-11 17:35] LABS: BARBITURATE, URINE NEG. ng/ml (NEG <=200); BENZODIAZEPINE, URINE POS. ng/mL (NEG <=200); CANNABINOID, URINE NEG. ng/mL (NEG <=50); COCAINE, URINE NEG. ng/mL (NEG <=300); OPIATE, URINE NEG. ng/mL (NEG <=2000); PHENCYCLIDINE SCREEN,URINE NEG. ng/mL (NEG <=25)
--- NOTE | 2017-08-11 18:35 | NUR ---
PT APPEARS TO BE SLEEPING, RESPIRATIONS EVEN AND UNLABORED
[2017-08-11 19:10] VITALS: BP 110/66
== END 2017-08-11 19:10 | disposition home or self-care (01) ==
LOC: MED 12:46
DX: F10.129 Alcohol abuse with intoxication, unspecified (principal); J45.909 Unspecified asthma, uncomplicated; I10 Essential (primary) hypertension; K21.9 Gastro-esophageal reflux disease without esophagitis; Z79.899 Other long term (current) drug therapy
CPT/HCPCS: 36415; 80053; 80305; 81002; 85025; 93005; 96365; 96366; 99285; A9153; G0480; G0482; J3411; J3475; J3490; J7030

== ENCOUNTER 2017-09-10 22:15 | Emergency (ER) | payer MEDICAID ==
[~2017-09-10] VITALS: Ht 180.3 cm; Wt 86.2 kg
[2017-09-10 22:18] VITALS: BP 128/80
[2017-09-10] MEDS ORDERED: LORazepam 1 MG TAB PO ONE (23:00)
[2017-09-11 02:00] VITALS: BP 115/68
== END 2017-09-11 02:00 | disposition home or self-care (01) ==
LOC: MED 22:15
DX: F10.129 Alcohol abuse with intoxication, unspecified (principal); K21.9 Gastro-esophageal reflux disease without esophagitis; J45.909 Unspecified asthma, uncomplicated; I10 Essential (primary) hypertension; Z79.899 Other long term (current) drug therapy; Y90.9 Presence of alcohol in blood, level not specified
CPT/HCPCS: 99283

== ENCOUNTER 2017-09-23 23:17 | Emergency (ER) | payer MEDICAID, OTHER ==
[~2017-09-23] VITALS: Ht 180.3 cm; Wt 81.6 kg
[~2017-09-23 23:17] MED LIST changes: +THIA-34 PO; -THIA100T31 PO
--- NOTE | 2017-09-23 23:18 | NUR ---
PT PLACED IN HOSPITAL GOWN, CONNECTED TO PULSE OX, B/P, AND COMMUNITY SUPPORT WORKER, SEIZURE PADS IN PLACE, PT PROVIDED W/ URINAL.
--- NOTE | 2017-09-23 23:18 | NUR ---
PT ROBERT BLS. TAKEN TO BED 2
[2017-09-23 23:21] VITALS: BP 112/77
--- NOTE | 2017-09-23 23:32 | NUR ---
BIBA FOR ETOH, PT ADMITS TO DRINKING MOST OF THE DAY "MALT LIQUOR AND HURRICANES". PT IS AWAKE, EXCESSIVE SPEECH, CONFUSED, ORIENTED TO NAME AND PLACE. VSS, PERRL. PT HAS ROUND, MOVEABLE, LUMP NOTED TO LEFT UNDERARM, NO PAIN. PT DENIES OTHER SYMPTOMS OF CP, N/V/D.
--- NOTE | 2017-09-23 23:34 | NUR ---
Dr. Sumner evaluating patient at bedside.
--- NOTE | 2017-09-24 00:35 | NUR ---
PT LAYING IN BED SLEEPING , VSS, WILL CONTINUE TO MONITOR.
--- NOTE | 2017-09-24 01:30 | NUR ---
PT SLEEPING IN BED, AROUSABLE TO NAME, STILL HAS EXCESSIVE/SLURRED SPEECH, WILL CONTINUE TO MNOITOR.
--- NOTE | 2017-09-24 02:30 | NUR ---
PT SLEEPING IN BED, WILL CONTINUE TO MONITOR.
[2017-09-24 04:23] VITALS: BP 106/58
--- NOTE | 2017-09-24 04:23 | NUR ---
Patient discharged with v/s stable. Written and verbal after care instructions given and explained. Patient verbalized understanding. Ambulatory with steady gait. All questions addressed prior to discharge. Advised to follow up with PMD. PT PROVIDED W/ HOMELESS RESOURCES AND BUS PASS. PT STATES HE WILL BE TAKING BUS TO [place] [facility].
== END 2017-09-24 04:23 | disposition home or self-care (01) ==
LOC: MED 23:17
DX: F10.129 Alcohol abuse with intoxication, unspecified (principal); K21.9 Gastro-esophageal reflux disease without esophagitis; J45.909 Unspecified asthma, uncomplicated; I10 Essential (primary) hypertension; K74.60 Unspecified cirrhosis of liver; Z79.2 Long term (current) use of antibiotics; Z79.899 Other long term (current) drug therapy
CPT/HCPCS: 99283

== ENCOUNTER 2017-12-18 22:10 | Emergency (ER) | payer OTHER ==
[~2017-12-18] VITALS: Ht 175.3 cm; Wt 72.6 kg
[2017-12-18 22:12] VITALS: BP 98/64
== END 2017-12-18 23:58 | disposition left against medical advice (07) ==
LOC: MED 22:10
DX: R47.81 Slurred speech (principal); Z53.21 Procedure and treatment not carried out due to patient leaving prior to being seen by health care provider

== ENCOUNTER 2018-11-21 15:13 | Emergency (ER) | payer OTHER ==
[~2018-11-21] VITALS: Ht 182.9 cm; Wt 74.8 kg
[2018-11-21 15:24] VITALS: BP 107/60
--- NOTE | 2018-11-21 15:28 | NUR ---
Note alvin in EDM - 11/21/18 at 1530 by CATERINA BIB [facility] W/ C/O E[facility], GENERAL BODY ACHE, VOMOITING. PER PT HE HAD 3 BEERS TODAY. WAS D/C YESTERDAY AT [facility] FOR THE SAME DX. HX: ETOH, CIRRHOSIS, GERD, HTN, ASTHMA
--- NOTE | 2018-11-21 15:30 | NUR ---
BIB [facility] [place] W/ C/O EOTH, GENERAL BODY ACHE, VOMOITING. PER PT HE HAD 3 BEERS TODAY. WAS D/C YESTERDAY AT [facility] FOR THE SAME DX. HX: ETOH, CIRRHOSIS, GERD, HTN, ASTHMA
[2018-11-21] MEDS ORDERED: DOCU50SO2 GT (15:36)
[2018-11-21] MEDS ORDERED: NACL 0.9% 1,000 ML IV ONE (15:40)
[2018-11-21] MEDS ORDERED: FAMOTIDINE 20 MG TAB PO ONE (16:35)
--- NOTE | 2018-11-21 17:00 | NUR ---
PT REPORTS THAT HE IS HOMELESS, CHOOSES TO RETURN TO PREVIOUS LIVING ARRANGEMENT IN A STREET IN [place]. BUS PASS PROVIDED. SANDWICH AND DRINKS WERE PROVIDED. PT WITH APPROPRIATE CLOTHING FOR WEATHER.
[2018-11-21 17:07] VITALS: BP 127/73
--- NOTE | 2018-11-21 17:09 | NUR ---
Patient discharged with v/s stable. Written and verbal after care instructions given and explained. Patient alert, oriented and verbalized understanding of instructions. Ambulatory with steady gait. All questions addressed prior to discharge. ID band removed. Patient advised to follow up with PMD. Rx of PRILOSEC given. Patient educated on indication of medication including possible reaction and side effects. Opportunity to ask questions provided and answered.
== END 2018-11-21 17:07 | disposition home or self-care (01) ==
LOC: MED 15:13
DX: F10.129 Alcohol abuse with intoxication, unspecified (principal); K21.9 Gastro-esophageal reflux disease without esophagitis; J45.909 Unspecified asthma, uncomplicated; I10 Essential (primary) hypertension; Z79.899 Other long term (current) drug therapy
CPT/HCPCS: 99283; J7030

== ENCOUNTER 2018-12-28 23:32 | Emergency (ER) | payer OTHER ==
[~2018-12-28] VITALS: Ht 172.7 cm; Wt 74.8 kg
[~2018-12-28 23:32] MED LIST changes: +DOCU50SO2 GT
[2018-12-28 23:39] VITALS: BP 121/84
--- NOTE | 2018-12-28 23:43 | NUR ---
BIBA PLACE IN BED 8. PATIENT AAO. PLACE ON MONITOR AND PUT IN GOWN.
--- NOTE | 2018-12-28 23:50 | NUR ---
53 Y/O MALE BIBA WITH C/O OF CHRONIC 9/10 FULL BODY ACUTE PAIN IN [place], LEGS, BACK AND ARMS. STATES HE HAD SEIZURES, UNWITNESSED. A/OX4; FOLLOWS COMMANDS; BREATHING UNLABORED. SKIN:NOTED PIMPLES/WELTS IN THE BACK.DRINKS HEAVILY, LAST DRINK AROUND 5PM. DENIES N/V/D. ERMD MADE AWARE. SIDE RAILX1.SEIZURE PRECAUTIONS IMPLEMENTED. PLACED ON MONITOR. VSS. WILL CONTINUE TO MONITOR. HX: EPILEPSY, ALCOHOLISM, CIRRHOSIS, GERD, RA, MIGRAINES, PANCREATIC CANCER. RX:DENIES MEDICATION NKDA
--- NOTE | 2018-12-28 23:56 | NUR ---
20 GAUGE IV STARTED IN RIGHT HAND FLUSHED EASILY WITH GOOD BLOOD RETURN. PATIENT TOLERATED WELL.
--- NOTE | 2018-12-29 01:50 | NUR ---
PATIENT STATES HIS PAIN IS A 5/10 AT THIS TIME. HE ALSO STATES, "I JUST WANT TO GET SOME SLEEP." VSS. WILL CONTINUE TO MONITOR.
[2018-12-29] MEDS ORDERED: DIAZEPAM 5 MG TAB PO ONE (01:55)
--- NOTE | 2018-12-29 02:24 | NUR ---
PATIENT PROVIDED WITH D/C INSTRUCTIONS AND HOMELESS PACKET. GIVEN A NEW SET OF PANTS AND GIVEN A BUS PASS. STATES HE WANTS TO GO BACK TO THE STREETS IN [place]. STATES HE WILL TAKE THE BUS WHEN IT STARTS RUNNING AND PLANS TO STAY IN LOBBY UNTIL THEN. VSS, STATES PAIN STILL PRESENT BUT BETTER THAN WHEN HE CAME IN. AMB WITH STEADY GAIT.
[2018-12-29 02:35] VITALS: BP 121/84
== END 2018-12-29 02:24 | disposition home or self-care (01) ==
LOC: MED 23:32
DX: G40.909 Epilepsy, unspecified, not intractable, without status epilepticus (principal); F10.10 Alcohol abuse, uncomplicated; J45.909 Unspecified asthma, uncomplicated; K21.9 Gastro-esophageal reflux disease without esophagitis; I10 Essential (primary) hypertension; G43.909 Migraine, unspecified, not intractable, without status migrainosus; Z79.899 Other long term (current) drug therapy
CPT/HCPCS: 99282; 99283

== ENCOUNTER 2019-08-15 07:00 | Emergency (ER) | payer OTHER ==
[~2019-08-15] VITALS: Ht 182.9 cm; Wt 74.8 kg
[2019-08-15 07:12] VITALS: BP 129/96
--- NOTE | 2019-08-15 07:26 | NUR ---
PT AMBULATED TO ER BED 09.
--- NOTE | 2019-08-15 07:40 | NUR ---
53 Y/O BIB SELF C/O LEFT ATYPICAL CHEST PAIN THAT BEGAN YESTERDAY. DRY COUGH X3 DAYS. DENIES SOB. PT STATES HE IS EPILEPTIC AND HAD A SEIZURE YESTERDAY, WAS TAKEN TO [facility] AND DISCHARGED AT 3AM. PT STATES HIS BACKPACK WAS STOLEN AND ALL OF HIS MEDS WERE STOLEN WELL. RESP EVEN AND UNLABORED. PT DENIES ANY FEVER/SOB/CHILLS. AAOX4.
--- NOTE | 2019-08-15 07:40 | NUR ---
XRAY AT BEDSIDE
[2019-08-15 07:50] LABS: BASOPHILS % (AUTO) 1.6 % (0.0-2.0); EOSINOPHILS % (AUTO) 1.2 % (0.0-4.0); HEMATOCRIT 36.7 % (36-52); HEMOGLOBIN 11.9 g/dL (12.0-18.0); LYMPHOCYTES # (AUTO) 0.4 K/uL (2.0-11.5); LYMPHOCYTES % (AUTO) 14.8 % (20.5-51.1); MEAN CORPUSCULAR HEMOGLOBIN 31 pg (27-31); MEAN CORPUSCULAR HGB CONC 32 g/dL (33-37); MEAN CORPUSCULAR VOLUME 94.2 fL (80-94); MONOCYTES # (AUTO) 0.3 K/uL (0.8-1.0); MONOCYTES % (AUTO) 9.5 % (1.7-9.3); NEUTROPHILS # (AUTO) 2.2 K/uL (1.8-7.7); NEUTROPHILS % (AUTO) 72.9 % (42.2-75.2); PLATELET COUNT (AUTO) 70 K/uL (140-450); RED BLOOD CELL COUNT(AUTO) 3.89 MIL/uL (4.20-6.10); RED CELL DISTRIBUTION WIDTH 17.8 % (11.6-13.7)
[2019-08-15 08:29] LABS: ALBUMIN 4.2 g/dL (3.4-5.0); ANION GAP 18.9 (8-16); CARBON DIOXIDE 25.1 mmol/L (21-32); CREATININE 0.8 mg/dL (0.6-1.3)
[2019-08-15 09:25] VITALS: BP 132/85
== END 2019-08-15 09:52 | disposition home or self-care (01) ==
LOC: MED 07:00
DX: R07.9 Chest pain, unspecified (principal); K21.9 Gastro-esophageal reflux disease without esophagitis; K74.60 Unspecified cirrhosis of liver; R05 Cough; R03.0 Elevated blood-pressure reading, without diagnosis of hypertension; R56.9 Unspecified convulsions; Z59.0 Homelessness
CPT/HCPCS: 36415; 71045; 80053; 83880; 84484; 85025; 93005; 99285; Q0092

== ENCOUNTER 2019-09-26 10:01 | Inpatient (IN) | payer OTHER ==
[~2019-09-26] VITALS: Ht 182.9 cm; Wt 74.8 kg
[~2019-09-26 10:01] MED LIST changes: -DOCU50SO2 GT; -PANT40EC PO; -SULF1TAB12 PO
[2019-09-26 10:08] VITALS: BP 118/80
--- NOTE | 2019-09-26 10:10 | NUR ---
A 53 [address]ESS [address]IB[address]RE[address] C/O GENERALIZED WEAKNESS, STERNAL BURNING SENSATION ON THE BUS TODAY AFTER BEING DISCHARGE FROM [facility] FOR ETOH. PT STATES HE HAS BEEN HOSPITALIZED AT [facility] FOR 2 DAYS. PER EMS BLOOS SUGAR 117 ON SCENE. PT HAD BOWEL MOVEMENT ON HIS PANTS AND HE STATES HE DID NOT REALIZED THAT. HR EVEN AND REGULAR; PT DENIES ANY FEVER, CP, SOB, OR COUGH AT THIS TIME; PATIENT STATES PAIN OF 6/10 AT THIS TIME; VSS; PATIENT POSITIONED FOR COMFORT; HOB ELEVATED; BEDRAILS UP WITH SEIZURE PADS X2; BED DOWN. ER MD MADE AWARE OF PT STATUS.
[2019-09-26] MEDS ORDERED: NACL 0.9% 1,000 ML IV ONE ×2 (10:20→11:45)
--- NOTE | 2019-09-26 10:33 | NUR ---
PT STATES HE HAS NOT TAKEN KEPPRA 500MG TODAY.
[2019-09-26] MEDS ORDERED: levETIRAcetam 500 MG TAB PO ONE (10:35)
[2019-09-26 10:36] LABS: BASOPHILS # (AUTO) 0.1 K/uL (0.00-0.22); BASOPHILS % (AUTO) 1.1 % (0.0-2.0); EOSINOPHILS % (AUTO) 0.3 % (0.0-4.0); HEMATOCRIT 35.6 % (36-52); HEMOGLOBIN 11.7 g/dL (12.0-18.0); LYMPHOCYTES # (AUTO) 0.5 K/uL (2.0-11.5); LYMPHOCYTES % (AUTO) 10.5 % (20.5-51.1); MEAN CORPUSCULAR HEMOGLOBIN 31 pg (27-31); MEAN CORPUSCULAR HGB CONC 33 g/dL (33-37); MEAN CORPUSCULAR VOLUME 94.1 fL (80-94); MONOCYTES # (AUTO) 0.5 K/uL (0.8-1.0); MONOCYTES % (AUTO) 11.5 % (1.7-9.3); NEUTROPHILS # (AUTO) 3.6 K/uL (1.8-7.7); NEUTROPHILS % (AUTO) 76.6 % (42.2-75.2); PLATELET COUNT (AUTO) 160 K/uL (140-450); RED BLOOD CELL COUNT(AUTO) 3.78 MIL/uL (4.20-6.10); RED CELL DISTRIBUTION WIDTH 16.7 % (11.6-13.7); WHITE BLOOD COUNT (AUTO) 4.7 K/uL (4.8-10.8)
--- NOTE | 2019-09-26 10:49 | NUR ---
CALLED FOR SOCIAL SERVICE AND WAS TOLD BY KENZIE THERE IS NO VICE PRESIDENT [employer]ELOPMENT TODAY, SO NO ONE WILL COME IN FOR SS AT THIS TIME. Addendum: 09/26/19 [address] MALDONADO MADE AWARE.
[2019-09-26 11:00] LABS: ALBUMIN 4.2 g/dL (3.4-5.0); ANION GAP 15.7 (8-16); CARBON DIOXIDE 26.6 mmol/L (21-32); CREATININE 0.7 mg/dL (0.6-1.3); POTASSIUM 3.3 mmol/L (3.5-5.1); TOTAL BILIRUBIN 0.9 mg/dL (0.0-1.0)
--- NOTE | 2019-09-26 11:35 | NUR ---
PT HAD ONE EPISODE OF MILD SEIZURE WHICH LASTED 35 SECONDS. PT HAD FECAL AND URINARY INCONTINENCE ON HIS DIAPER. CLEANED PT AND CHANGED A NEW DIAPER. DR. MALDONADO MADE AWARE.
--- NOTE | 2019-09-26 12:36 | NUR ---
DR. ALEMAN IS EVALUATING PT AT BEDSIDE.
[2019-09-26] MEDS ORDERED: HYDROcodone/APAP 5/325 MG 1 TAB TAB PO PRN ×2 (12:40)
[2019-09-26] MEDS ORDERED: ACETAMINOPHEN 325 MG TAB PO PRN (12:40)
[2019-09-26] MEDS ORDERED: LORazepam 2 MG/ML VIAL IVP PRN ×2 (12:40→12:50)
[2019-09-26] MEDS ORDERED: cefTRIAXone 1,000 MG VIAL ONE (12:46)
[2019-09-26] MEDS: chlordiazePOXIDE 25 MG CAP PO SCH ×2 (13:01→16:57)
[2019-09-26] MEDS: KCL 20 MEQ/WATER INJ PREMIX 100 ML IV SCH ×3 (13:10→16:37)
[2019-09-26 13:21] LABS: APPEARANCE,URINE CLEAR (CLEAR); BILIRUBIN,URINE NEGATIVE (NEGATIVE); BLOOD, URINE NEGATIVE (NEGATIVE); COLOR,URINE YELLOW (YELLOW); LEUKOCYTE ESTERASE ,URINE NEGATIVE (NEGATIVE); NITRITE, URINE NEGATIVE (NEGATIVE); UGLUCOSE NEGATIVE (NEGATIVE)
[2019-09-26 13:35] LABS: PROTHROMBIN TIME 12.5 secs (10.8-13.4)
--- NOTE | 2019-09-26 13:50 | NUR ---
PT IS SLEEPING IN THE BED. VSS SHOWS ON THE MONITOR WILL CONTINUE MONITORING HIS VITAL SIGNS.
--- NOTE | 2019-09-26 15:11 | NUR ---
DISCHARGE PLANNING: THIS IS A 53 Y/O HOMELESS MALE PATIENT, WHO CAME IN DUE TO SEIZURE. PAST MEDICAL HISTORY INCLUDE SEIZURE DISORDER, ETOH ABUSE, ETOH CIRRHOSIS, HTN, ASTHMA. INITIAL DIAGNOSIS OF SEIZURE. CURRENT LABS INCLUDE WBC 4.7, H/H 11.7/35.6, NA/K 136/3.3, BUN/CREA 6/0.7. ON ROCEPHIN, KEPPRA AND LIBRIUM. DC PLAN PENDING ON PATIENT'S RESPONSE TO TREATMENT.
--- NOTE | 2019-09-26 15:30 | NUR ---
PT URINATED ON HIS DIAPER. CLEANED PT AND NEW DIAPER AND GOWN CHANGED.
[2019-09-26 15:50] VITALS: BP 153/94
--- NOTE | 2019-09-26 15:50 | NUR ---
Patient will be admitted to care of SEIZURE DISORDER. Admited to TELE. Will go to room 107B. Belongings list completed. Report to AMINA GAYTAN.
--- NOTE | 2019-09-26 15:50 | NUR ---
RECEIVED BEDSIDE REPORT FROM ED NURSE. PT RESTING IN BED. ABLE TO MAKE NEEDS KNOWN. RESPIRATIONS EVEN AND UNLABORED WITH NO SOB OR RESPIRATORY DISTRESS. SKIN WARM AND DRY TO TOUCH. MRSA COLLECTED AND SENT. SAFETY MEASURES IN PLACE. WILL CONTINUE TO MONITOR
--- NOTE | 2019-09-26 16:57 | NUR ---
ADMINISTERED SCHED MED PRESCRIBED PER MD ORDER. PT TOLERATED WELL. WILL CONTINUE TO MONITOR
--- NOTE | 2019-09-26 18:03 | NUR ---
PT COMPLAINED OF MODERATE GENERALIZED PAIN. PRN PAIN MEDICATION ADMINISTERED PRESCRIBED PER MD ORDER. PT TOLERATED WELL. WILL CONTINUE TO MONITOR
--- NOTE | 2019-09-26 19:20 | NUR ---
ENDORSED AT BEDSIDE TO NIGHTSHIFT NURSE FOR CONTINUITY OF CARE. PT IS STABLE
--- NOTE | 2019-09-26 19:20 | NUR ---
RECEIVED PT AAOX4 , NID - O2 SAT WNL , ON S2 PREC. IV SITE INTACT AND PATENT .SAFETY MEASURES IN PLACE . C/O HEART BURN - HE SAID HE HAD HX OF GERD - WILL REFER TO CSW . PLAN OF CARE DISCUSSED AND VERBALIZE UNDERSTANDING - CALL LIGHT WITHIN REACH . PT REQUESTING NEW T -SHIRT AND SHORT AND BUS PASSES - WILL ENDORSE IT JOSE . Addendum: 09/27/19 at 0802 by Alicia Felix RN PT IS ON TELE MONITOR.
[2019-09-26 20:00] VITALS: BP 140/86
[2019-09-26] MEDS ORDERED: PANTOPRAZOLE 40 MG TABEC PO ONE ×2 (20:20→20:46)
[2019-09-26] MEDS: levETIRAcetam 500 MG TAB PO SCH (22:00)
[2019-09-27] VITALS: BP 133/75
--- NOTE | 2019-09-27 | NUR ---
MADE ROUNDS , NO S/SX OF ACUTE DISTRESS NOTED . WILL CONT. TO MONITOR .
--- NOTE | 2019-09-27 02:00 | NUR ---
SLEEPING - ON TELE MONITOR.
[2019-09-27 04:00] VITALS: BP 134/65
--- NOTE | 2019-09-27 04:00 | NUR ---
MADE ROUNDS , NO S/SX OF ACUTE DISTRESS NOTED . WILL CONT. TO MONITOR
--- NOTE | 2019-09-27 06:00 | NUR ---
MADE ROUNDS , NO COMPLAIN MADE .
[2019-09-27 06:30] LABS: BASOPHILS % (AUTO) 1.1 % (0.0-2.0); EOSINOPHILS # (AUTO) 0.1 K/uL (0-0.4); EOSINOPHILS % (AUTO) 3.2 % (0.0-4.0); HEMATOCRIT 37.7 % (36-52); HEMOGLOBIN 12.4 g/dL (12.0-18.0); LYMPHOCYTES # (AUTO) 1.1 K/uL (2.0-11.5); LYMPHOCYTES % (AUTO) 27.2 % (20.5-51.1); MEAN CORPUSCULAR HEMOGLOBIN 31 pg (27-31); MEAN CORPUSCULAR HGB CONC 33 g/dL (33-37); MEAN CORPUSCULAR VOLUME 95.4 fL (80-94); MONOCYTES # (AUTO) 0.3 K/uL (0.8-1.0); MONOCYTES % (AUTO) 7.9 % (1.7-9.3); NEUTROPHILS # (AUTO) 2.4 K/uL (1.8-7.7); NEUTROPHILS % (AUTO) 60.6 % (42.2-75.2); PLATELET COUNT (AUTO) 134 K/uL (140-450); RED BLOOD CELL COUNT(AUTO) 3.95 MIL/uL (4.20-6.10); RED CELL DISTRIBUTION WIDTH 16.7 % (11.6-13.7); WHITE BLOOD COUNT (AUTO) 3.9 K/uL (4.8-10.8)
--- NOTE | 2019-09-27 07:19 | NUR ---
ENDORSED TO AM SHIFT - PT - STABLE .
[2019-09-27 07:31] LABS: ALBUMIN 4.1 g/dL (3.4-5.0); ANION GAP 18.6 (8-16); CARBON DIOXIDE 23.6 mmol/L (21-32); CREATININE 0.6 mg/dL (0.6-1.3); MAGNESIUM 1.8 mg/dL (1.8-2.4); PHOSPHORUS 3.6 mg/dL (2.5-4.9); POTASSIUM 3.2 mmol/L (3.5-5.1); TOTAL BILIRUBIN 0.9 mg/dL (0.0-1.0)
[2019-09-27 08:00] VITALS: BP 118/83
--- NOTE | 2019-09-27 08:00 | NUR ---
RECEIVED REPORT FROM AMINA SYED. PATIENT ALERT AWAKE ORIENTED X4, NOT IN ANY DISTRESS NOTED. INITIAL ASSESSMENT INITIATED. WITH IVF ON GOING AND INFUSING WELL. ON HEART MONITOR SHOWS SR/ST NO ECTOPY NOTED. NEEDS ATTENDED, WILL CONTINUE TO MONITOR.
[2019-09-27] MEDS: chlordiazePOXIDE 25 MG CAP PO SCH ×2 (08:09→12:22)
[2019-09-27] MEDS: levETIRAcetam 500 MG TAB PO SCH (08:11)
[2019-09-27] MEDS ORDERED: ENOXAPARIN 40 MG/0.4 ML SYR SUBQ SCH (09:00)
[2019-09-27] MEDS ORDERED: PANTOPRAZOLE 40 MG TABEC PO SCH (09:00)
--- NOTE | 2019-09-27 09:00 | NUR ---
DUE MEDICATIONS GIVEN AND TOLERATED WELL. SEEN BY DR. ALEMAN AND DISCUSSED THE PLAN OF CARE. FOR DC TODAY. WILL FOLLOW UP PHARMACY FOR NEW MEDICATIONS.
--- NOTE | 2019-09-27 09:01 | NUR ---
PATIENT HAS BEEN SCREENED AND CATEGORIZED LOW NUTRITION RISK. PATIENT WILL BE SEEN WITHIN 7 DAYS OF ADMISSION. 10/03/[address]
--- NOTE | 2019-09-27 12:00 | NUR ---
DC IV AND HEART MONITOR, SIGNED PAPERS. INSTRUCTION REGARDING MEDICATION TO BE TELEPHONE OPERATOR AT [facility] WHERE HE PROVIDED. CALLED [facility] AND MEDICATION IS READY TO BE PICKED UP. SEEN BY VIBRATING SCREEN OPERATOR. PATIENT TOLD ME THAT HE WILL STAY ON HIS FRIEND BUT HE DIDN'T PROVIDE THE NUMBER AND ADDRESS, HE ASKED FOR BUS PASS AND PROVIDED TO HIM.
--- NOTE | 2019-09-27 12:10 | NUR ---
PATIENT DC VIA WHEELCHAIR WITH DC INSTRUCTION GIVEN AND VERBALIZED UNDERSTANDING. IN STABLE CONDITION.
--- NOTE | 2019-09-27 13:48 | NUR ---
BILINGUAL MIDDLE SCHOOL TEACHER NOTE: Patient's Orientation Person Situation Place Time Information Provided By PATIENT Comments SW MET WITH PATIENT AT BEDSIDE. Maintenance Apprentice, Realtionship and Phone Number LINNEA ESTRADA SISTER [phone] Healthcare Power of Paid Search Marketing Strategist No Does Patient Have a POLST No Identifying Problems No Social Work Triggers Is A Social Work Consult Needed No Mandate Report Filed No Explanation Of Identifying Problems PATIENT IS A 53-YEAR-OLD MALE ADMITTED FOR SEIZURES. PATIENT HAS PMHX OF CIRRHOSIS, ASTHMA, AND SEIZURE. PATIENT REPORTS BEING HOMELESS, ALTHOUGH PATIENT STATED THAT HE HAS NEVER LIVED ON THE STREET. PATIENT STATED HE OFTEN COUCH SURFS AND RECEIVES MONETARY ASSISTANCE FROM HIS SISTER, LINNEA ESTRADA TO STAY AT [facility]. SW PROVIDED HOMELESS RESOURCES. PATIENT RECEIVES NO GOVERNMENT AID FROM [employer]. Admitted From HOMELESS Pre-Admission Level Of Functioning Status Independent/Ambulatory Prior Resources/Services Used In Last 12 Months Homeless Resources Prior DME No Prior DME Used Other Living Situation/Comment PATIENT STATED THAT HE HAS BEEN COUCH SURFING AND ST[facility]ING AT [facility]. Patient Had Caregiver No Home Support No Caregiver Issues Financial Issues No Known Financial Issue Referral To The Financial Counselor Needed No Factors/Needs Nursing Home/Homeless Explanation And Or Other Factors Affecting/Possible DC Needs PATIENT STATED THAT HE IS IN THE PROCESS OF ENTERING A DETOX CENTER AND SOBER LIVING THROUGH HIS INSURANCE. PATIENT STATED THAT HE WILL BE COORDINATING HIS LIVING ARRANGEMENTS AT HIS SISTER'S RESIDENCE: [address], [place] [phone]. Pt/Rep Participated In Discharge Plan Yes Patient/Family Agress With Discharge Plan Yes Discharge Plan Comments TENTATIVE DISCHARGE PLAN IS FOR PATIENT TO RETURN TO HIS SISTER'S HOUSE. DC Plan Status Initiated
== END 2019-09-27 12:35 | disposition home or self-care (01) | DRG 53 ==
LOC: MED 10:01 → MTU 12:43
PROVIDERS: ADMIT Internal Medicine; ATTEND Internal Medicine
DX: G40.909 Epilepsy, unspecified, not intractable, without status epilepticus (principal); Y90.9 Presence of alcohol in blood, level not specified; K74.60 Unspecified cirrhosis of liver; Z59.0 Homelessness; I10 Essential (primary) hypertension; K21.9 Gastro-esophageal reflux disease without esophagitis; E87.6 Hypokalemia; J45.909 Unspecified asthma, uncomplicated; F10.10 Alcohol abuse, uncomplicated; Z91.14 Patient's other noncompliance with medication regimen; R65.10 Systemic inflammatory response syndrome (SIRS) of non-infectious origin without acute organ dysfunction
CPT/HCPCS: 36415; 71045; 80053; 81003; 82550; 83735; 84100; 85025; 85610; 85730; 87081; 96361; 96365; 99285; J0696; J1650; J3480; J7030; J7060; Q0092

== ENCOUNTER 2019-10-11 23:12 | Emergency (ER) | payer OTHER ==
[~2019-10-11] VITALS: Ht 175.3 cm; Wt 63.5 kg
[2019-10-11 23:13] VITALS: BP 120/84
--- NOTE | 2019-10-11 23:18 | NUR ---
PT TAKEN TO BED 3.
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
--- NOTE | 2019-10-11 23:54 | NUR ---
ermd at bedside evaluating pt
[2019-10-12] MEDS ORDERED: levETIRAcetam 500 MG TAB PO ONE
--- NOTE | 2019-10-12 00:36 | NUR ---
PER DR. ERICA BOOKER TO PROVIDED PT FOOD AT THIS TIME. PT PROVIDED SANDWICH AND APPLE JUICE. PT SITTING IN BED, LOCKED AND IN LOWEST POSITION , TOLERATING FOOD WELL AT THIS TIME.
--- NOTE | 2019-10-12 02:27 | NUR ---
PT HAS EYES, CLOSED, RESPIRATIONS EVEN AND UNLABORED. CHEST RISE IS SYMMETRICAL. WILL CONTINUE TO MONITOR.
--- NOTE | 2019-10-12 04:11 | NUR ---
Patient resting comfortably in bed, eyes closed. Vital Signs within normal limits. Respirations even and unlabored. Chest rise is symmetrical. Will continue to monitor.
--- NOTE | 2019-10-12 06:11 | NUR ---
Patient resting comfortably in bed, eyes closed. Vital Signs within normal limits. Respirations even and unlabored. Chest rise is symmetrical. Will continue to monitor.
[2019-10-12 06:32] VITALS: BP 145/60
--- NOTE | 2019-10-12 06:32 | NUR ---
Patient discharged with v/s stable. Written and verbal after care instructions given and explained. Patient alert, oriented and verbalized understanding of instructions. Ambulatory with steady gait. All questions addressed prior to discharge. ID band removed. Homeless Packet and Meal Provided. Bus Pass provided. Patient advised to follow up with PMD. Rx of KEPPRA given. Patient educated on indication of medication including possible reaction and side effects. Opportunity to ask questions provided and answered.
== END 2019-10-12 06:32 | disposition home or self-care (01) ==
LOC: MED 23:12
DX: F10.129 Alcohol abuse with intoxication, unspecified (principal); J45.909 Unspecified asthma, uncomplicated; K74.60 Unspecified cirrhosis of liver; K21.9 Gastro-esophageal reflux disease without esophagitis; I10 Essential (primary) hypertension; Z79.899 Other long term (current) drug therapy; Y90.9 Presence of alcohol in blood, level not specified
CPT/HCPCS: 99283; 99285

== ENCOUNTER 2019-10-31 20:46 | Emergency (ER) | payer OTHER ==
[~2019-10-31] VITALS: Ht 182.9 cm; Wt 68.0 kg
[2019-10-31 20:47] VITALS: BP 100/74
--- NOTE | 2019-10-31 20:50 | NUR ---
PT W/C ASSISTED TO THE LOBBY TO A/W BED
--- NOTE | 2019-10-31 21:46 | NUR ---
PT W/C ASSISTED TO BED #6
--- NOTE | 2019-10-31 22:09 | NUR ---
53 Y/O MALE C/O GENERALZIED BODY PAIN X1 DAY. PT STATES 9/10 CHRONIC ACHING PAIN FROM RHEUMATOID ARTHRITIS. C/O MIGRAINE, PT STATES "I GET BLIND IN MY L EYE FROM MIGRAINES". ALSO C/O NAUSEA & VOMITING. VSS. LUNG SOUNDS CLA. ABD SOFT NON TENDER. MEDHX- ALCOHOLISM, GERD, HTN, SEIZURES, RHEUMATOID ARTHRITIS, LIVER CIRRHOSIS NKA
[2019-10-31 22:13] LABS: BASOPHILS # (AUTO) 0.1 K/uL (0.00-0.22); BASOPHILS % (AUTO) 3.4 % (0.0-2.0); EOSINOPHILS # (AUTO) 0.1 K/uL (0-0.4); EOSINOPHILS % (AUTO) 1.5 % (0.0-4.0); HEMATOCRIT 38.3 % (36-52); HEMOGLOBIN 12.6 g/dL (12.0-18.0); LYMPHOCYTES # (AUTO) 1.1 K/uL (2.0-11.5); LYMPHOCYTES % (AUTO) 28.4 % (20.5-51.1); MEAN CORPUSCULAR HEMOGLOBIN 30 pg (27-31); MEAN CORPUSCULAR HGB CONC 33 g/dL (33-37); MEAN CORPUSCULAR VOLUME 91.8 fL (80-94); MONOCYTES # (AUTO) 0.5 K/uL (0.8-1.0); MONOCYTES % (AUTO) 14.5 % (1.7-9.3); NEUTROPHILS # (AUTO) 1.9 K/uL (1.8-7.7); NEUTROPHILS % (AUTO) 52.2 % (42.2-75.2); PLATELET COUNT (AUTO) 93 K/uL (140-450); RED BLOOD CELL COUNT(AUTO) 4.17 MIL/uL (4.20-6.10); RED CELL DISTRIBUTION WIDTH 17.1 % (11.6-13.7); WHITE BLOOD COUNT (AUTO) 3.7 K/uL (4.8-10.8)
[2019-10-31 22:32] LABS: ALBUMIN 4.3 g/dL (3.4-5.0); ASPARTATE AMINOTRANSFERASE 105 U/L (15-37); CARBON DIOXIDE 26.3 mmol/L (21-32); CHLORIDE 100 mmol/L (98-107); GFR ARICAN-AMERICAN 101 mL/min (>90); GLUCOSE 91 mg/dL (74-106); POTASSIUM 4.3 mmol/L (3.5-5.1); SODIUM SERUM 141 mmol/L (136-145); TOTAL BILIRUBIN 0.5 mg/dL (0.0-1.0); UREA NITROGEN, BLOOD 8 mg/dL (7-18)
[2019-10-31 22:38] LABS: ACETAMINOPHEN < 0.5 ug/ml (10-30); SALICYLATE < 2.8 mg/dL (2.8-20.0)
[2019-10-31] MEDS ORDERED: MULTIVITAMIN-12 10 ML, THIAMINE 100 MG, MAGNESIUM SULFATE 50% 2,000 MG, FOLIC ACID 1 MG... IV SCH ×5 (22:40)
[2019-10-31] MEDS ORDERED: FOLIC ACID 1 MG TAB ONE (22:50)
[2019-10-31] MEDS ORDERED: THIAMINE 100 MG TAB ONE (22:50)
[2019-10-31] MEDS ORDERED: MULTIVITAMIN-12 10 ML VIAL IV ONE (22:50)
[2019-10-31] MEDS ORDERED: MAG SULF 2000 MG/WATER PREMIX 50 ML IV ONE (22:57)
--- NOTE | 2019-11-01 00:12 | NUR ---
PT STATES HE IS UNABLE TO PROVIDE URINE. DR MCFARLAND MADE AWARE. ORDERS TO CANCEL UDS.
[2019-11-01] MEDS ORDERED: NACL 0.9% 1,000 ML IV ONE (00:50)
--- NOTE | 2019-11-01 02:13 | NUR ---
PT RESTING IN BED. EYES CLOSED. RESPIRAITONS EVEN AND UNLABORED. CHEST RISE IS SYMMETRICAL. VSS. SAFETY PRECAUTIONS IN PLACE. WILL CONTINUE TO MONITOR.
--- NOTE | 2019-11-01 04:10 | NUR ---
ROAD TESTED PT, PT WOBBLY ON FEET. CLINGING TO BED RAILS. MADE AWARE.
--- NOTE | 2019-11-01 06:09 | NUR ---
PT ROADTESTED FOR SECOND TIME. PT UNABLE TO STAND OR AMBULATE WITHOUT WOBBLING AND HOLDING ONTO BEDRAILS. ERMD MADE AWARE.
--- NOTE | 2019-11-01 07:17 | NUR ---
REPORT GIVEN TO DEQUAN HUYNH FOR CONTINUITY OF CARE.
--- NOTE | 2019-11-01 08:08 | NUR ---
PT ALERT AND AWAKE, BREATHING EVEN AND UNLABORED. PT TRYING TO CALL FAMILY MEMBER
[2019-11-01] MEDS ORDERED: ONDANSETRON 4 MG ODT PO ONE (08:25)
[2019-11-01 09:10] VITALS: BP 120/75
--- NOTE | 2019-11-01 09:10 | NUR ---
Patient discharged with v/s stable. Written and verbal after care instructions about alcohol intoxication given and explained. Patient verbalized understanding. Ambulatory with steady gait. All questions addressed prior to discharge. Advised to follow up with PMD.
--- NOTE | 2019-11-01 09:10 | NUR ---
Patient given written and verbal discharge instructions and verbalizes understanding. Patient is awake, alert and oriented. Refuses offer of fci placement. Given list of available shelters in surrounding areas. Patient given sandwitch and juice. Patient given bus pass.
== END 2019-11-01 09:10 | disposition home or self-care (01) ==
LOC: MED 20:46
DX: F10.129 Alcohol abuse with intoxication, unspecified (principal); J45.909 Unspecified asthma, uncomplicated; K21.9 Gastro-esophageal reflux disease without esophagitis; I10 Essential (primary) hypertension; K74.60 Unspecified cirrhosis of liver; Z79.899 Other long term (current) drug therapy; Z59.0 Homelessness
CPT/HCPCS: 36415; 80053; 85025; 93005; 96361; 96365; 99285; A9153; G0480; G0482; J3475; J7030; J7060; Q0162

== ENCOUNTER 2019-11-20 22:45 | Emergency (ER) | payer OTHER ==
[~2019-11-20] VITALS: Ht 188 cm; Wt 77.1 kg
[~2019-11-20 22:45] MED LIST changes: -PANT40EC28 PO; +PANT40EC56 PO
[2019-11-20 22:50] VITALS: BP 112/81
--- NOTE | 2019-11-20 22:53 | NUR ---
PER PT, "I DON'T EVEN WANT TO BE SEEN. I JUST WANT A SANDWICH." PT TAKEN TO LOBBY, GIVEN SANDWICH. BS: 99, VSS. ERMD MADE AWARE.
--- NOTE | 2019-11-20 23:46 | NUR ---
PT STATES, "I WANT THE DOCTOR TO SEE ME NOW." PT TAKEN TO [facility].
--- NOTE | 2019-11-20 23:50 | NUR ---
PT 53 Y/O MALE BIBA FOR C/O GENERALIZED BODY ACHES FOR "YEARS." PT STATES, "I WANT THE DOCTOR TO SEE ME NOW. I HAVE ACHES ALL OVER." PT RESPIRATIONS ARE EVEN AND UNLABORED. SKIN IS WARM AND DRY TO TOUCH. NO RESPIRATORY COMPLAINTS. DENIES N/V/D. PT STATES, " I HAVE TOO MUCH MEDICAL HISTORY TO TALK ABOUT." PT STATES PAIN IS GENERALIZED 9/10 THROBBING. PT BS: 105. ERMD MADE AWARE. NO NEW ORDERS GIVEN ST THIS TIME. PT STATES, " I JUST WANT TO SIT IN THIS CHAIR." BLANKET GIVEN FOR COMFORT MEASURES. MEDHX: ASTHMS, HTN. CIRRHOSIS, SEIZURES, ETOH ABUSE. ALLERGIES: NKA
--- NOTE | 2019-11-21 01:28 | NUR ---
PT MOVED TO ER BED 4
--- NOTE | 2019-11-21 01:31 | NUR ---
LAB AT BEDSIDE
[2019-11-21 01:44] LABS: BASOPHILS % (AUTO) 0.3 % (0.0-2.0); EOSINOPHILS # (AUTO) 0.4 K/uL (0-0.4); EOSINOPHILS % (AUTO) 7.4 % (0.0-4.0); HEMATOCRIT 35.2 % (36-52); HEMOGLOBIN 11.4 g/dL (12.0-18.0); LYMPHOCYTES # (AUTO) 1.5 K/uL (2.0-11.5); LYMPHOCYTES % (AUTO) 31.6 % (20.5-51.1); MEAN CORPUSCULAR HEMOGLOBIN 30 pg (27-31); MEAN CORPUSCULAR HGB CONC 33 g/dL (33-37); MEAN CORPUSCULAR VOLUME 92.8 fL (80-94); MONOCYTES # (AUTO) 0.7 K/uL (0.8-1.0); MONOCYTES % (AUTO) 13.4 % (1.7-9.3); NEUTROPHILS # (AUTO) 2.3 K/uL (1.8-7.7); NEUTROPHILS % (AUTO) 47.3 % (42.2-75.2); PLATELET COUNT (AUTO) 92 K/uL (140-450); RED BLOOD CELL COUNT(AUTO) 3.79 MIL/uL (4.20-6.10); RED CELL DISTRIBUTION WIDTH 17.1 % (11.6-13.7); WHITE BLOOD COUNT (AUTO) 4.9 K/uL (4.8-10.8)
--- NOTE | 2019-11-21 01:50 | NUR ---
EKG PERFORMED AT BEDSIDE. EKG READS SINUS RHYTHM @ 68
--- NOTE | 2019-11-21 01:55 | NUR ---
Dr. Brown examining patient.
--- NOTE | 2019-11-21 01:55 | NUR ---
X-Ray at bedside.
[2019-11-21 01:59] LABS: ANION GAP 18.7 (8-16); CARBON DIOXIDE 26.1 mmol/L (21-32); CREATININE 1.1 mg/dL (0.6-1.3); POTASSIUM 3.8 mmol/L (3.5-5.1)
[2019-11-21 02:05] LABS: ALBUMIN 3.9 g/dL (3.4-5.0); TOTAL BILIRUBIN 0.5 mg/dL (0.0-1.0)
--- NOTE | 2019-11-21 02:06 | NUR ---
pt unable to provide urine at this time. favian made aware.
[2019-11-21 02:12] LABS: CREATINE KINASE MB 1.3 ng/mL (0-3.6)
[2019-11-21 02:35] VITALS: BP 132/86
== END 2019-11-21 02:35 | disposition home or self-care (01) ==
LOC: MED 22:45
DX: M79.10 Myalgia, unspecified site (principal); J45.909 Unspecified asthma, uncomplicated; K21.9 Gastro-esophageal reflux disease without esophagitis; K74.60 Unspecified cirrhosis of liver; R56.9 Unspecified convulsions; Z79.899 Other long term (current) drug therapy
CPT/HCPCS: 36415; 71045; 80053; 82550; 82553; 84484; 85025; 87040; 93005; 99285; Q0092

== ENCOUNTER 2020-08-09 10:04 | Emergency (ER) | payer OTHER ==
[~2020-08-09] VITALS: Ht 182.9 cm; Wt 74.8 kg
--- NOTE | 2020-08-09 10:05 | NUR ---
Pt taken to ER bed 5.
--- NOTE | 2020-08-09 10:05 | NUR ---
jake JONES via gurney to bed 05.
[2020-08-09 10:11] VITALS: BP 138/100
--- NOTE | 2020-08-09 10:15 | NUR ---
Dr. Cornell at pt bedside for further evaluation.
--- NOTE | 2020-08-09 10:16 | NUR ---
54 Y/O HOMELESS MALE BIBA C/O DIZZINESS, RIGHT LOWER LEG PAIN 7/10 DESCRIBES ACHING RADIATING TO RIGHT KNEE X 3 WEEKS. AAOX4. PER EMS BLOOD SUGAR 102. DENIES N/V, DENIES FEVER/CHILLS. DENIES TRAUMA/INJURY STATES "I THINK IT IS DTS FROM ME NOT DRINKING". PMH: HTN, CIRRHOSIS, SEIZURE, DEPRESSION, GERD, ALCOHOLISM, HLD NKA
--- NOTE | 2020-08-09 10:26 | NUR ---
facilities maintenance technician at pt bedside.
[2020-08-09] MEDS ORDERED: levETIRAcetam 500 MG TAB PO ONE (10:35)
[2020-08-09] MEDS ORDERED: HYDROXYZINE HYDROCHLORIDE 10 MG TAB PO ONE (10:35)
--- NOTE | 2020-08-09 10:38 | NUR ---
RAD AT BEDSIDE
[2020-08-09 11:18] LABS: BASOPHILS % (AUTO) 0.4 % (0.0-2.0); EOSINOPHILS % (AUTO) 0.5 % (0.0-4.0); HEMATOCRIT 39.3 % (36-52); HEMOGLOBIN 13.2 g/dL (12.0-18.0); LYMPHOCYTES # (AUTO) 0.6 K/uL (2.0-11.5); LYMPHOCYTES % (AUTO) 13.1 % (20.5-51.1); MEAN CORPUSCULAR HEMOGLOBIN 30 pg (27-31); MEAN CORPUSCULAR HGB CONC 34 g/dL (33-37); MEAN CORPUSCULAR VOLUME 89.6 fL (80-94); MONOCYTES # (AUTO) 0.4 K/uL (0.8-1.0); MONOCYTES % (AUTO) 8.6 % (1.7-9.3); NEUTROPHILS # (AUTO) 3.6 K/uL (1.8-7.7); NEUTROPHILS % (AUTO) 77.4 % (42.2-75.2); PLATELET COUNT (AUTO) 103 K/uL (140-450); RED BLOOD CELL COUNT(AUTO) 4.38 MIL/uL (4.20-6.10); RED CELL DISTRIBUTION WIDTH 18.6 % (11.6-13.7); WHITE BLOOD COUNT (AUTO) 4.6 K/uL (4.8-10.8)
[2020-08-09 11:25] LABS: ANION GAP 13.2 (8-16); CARBON DIOXIDE 27.7 mmol/L (21-32); CREATININE 0.7 mg/dL (0.6-1.3); POTASSIUM 3.9 mmol/L (3.5-5.1)
[2020-08-09] MEDS ORDERED: HYDR25CA1 PO (11:44)
[2020-08-09] MEDS ORDERED: LEVE500T9 PO (11:44)
[2020-08-09 12:07] VITALS: BP 138/100
--- NOTE | 2020-08-09 12:08 | NUR ---
Patient discharged with v/s stable. Written and verbal after care instructions given and explained. Patient verbalized understanding. Wheel Chair Assisted with to car. All questions addressed prior to discharge. Advised to follow up with PMD.
== END 2020-08-09 12:08 | disposition home or self-care (01) ==
LOC: MED 10:04
DX: R42 Dizziness and giddiness (principal); M25.561 Pain in right knee; J45.909 Unspecified asthma, uncomplicated; I10 Essential (primary) hypertension; K21.9 Gastro-esophageal reflux disease without esophagitis; Z76.0 Encounter for issue of repeat prescription; Z79.899 Other long term (current) drug therapy; X58.XXXA Exposure to other specified factors, initial encounter; Y93.89 Activity, other specified; Y92.89 Other specified places as the place of occurrence of the external cause; Y99.8 Other external cause status
CPT/HCPCS: 36415; 73560; 80048; 84484; 85025; 93005; 99285

== ENCOUNTER 2020-12-19 00:49 | Emergency (ER) | payer OTHER ==
[~2020-12-19] VITALS: Ht 182.9 cm; Wt 86.2 kg
[~2020-12-19 00:49] MED LIST changes: +HYDR25CA1 PO
[2020-12-19 00:50] VITALS: BP 129/83
--- NOTE | 2020-12-19 03:18 | NUR ---
PT TAKEN TO BED 8
--- NOTE | 2020-12-19 03:33 | NUR ---
Dr. Sumner examining patient.
[2020-12-19] MEDS ORDERED: KETOROLAC 60 MG/2 ML VIAL IM ONE (03:35)
[2020-12-19] MEDS ORDERED: levETIRAcetam 500 MG TAB PO ONE (03:35)
[2020-12-19] MEDS ORDERED: LIB25 PO (04:00)
[2020-12-19] MEDS ORDERED: IBUP-2213 PO (04:00)
[2020-12-19] MEDS ORDERED: KEP500 PO (04:00)
--- NOTE | 2020-12-19 04:15 | NUR ---
PATIENT REQUESTING TO SEE ER MD FOR FEELING SICK. STATES HE MAY HAVE ANOTHER SEIZURE. ER MD MADE CONTACT AND STATED HE WILL BE MONIOTRED UNTIL MORNING AND DISCHARGED.
--- NOTE | 2020-12-19 05:36 | NUR ---
PATIENT STATES HE STILL FEELS VERY WEAK AND ABNORMAL, REQUESTIONG TO SEE ER MD FOR A THIRD TIME.
[2020-12-19 06:12] VITALS: BP 148/92
--- NOTE | 2020-12-19 06:13 | NUR ---
PATIENT WAS GIVEN DONOR CLOTHES DUE TO HIS ORIGINAL CLOTHES BEING EXTREMELY SOILED
--- NOTE | 2020-12-19 07:44 | NUR ---
Patient given written and verbal discharge instructions and verbalizes understanding. Given copies of tests performed during visit. Patient is awake, alert and oriented. Ambulatory with steady gait. Refuses offer of correction placement. Given list of available shelters in surrounding areas. BAG OF LUNCH, APPROPRIATE CLOTHES AND BUS PASS PROVIDED. HOMLESS PACKET PROVIDED AND HOMELESS WAIVER SIGNED.
--- NOTE | 2020-12-19 07:44 | NUR ---
Patient discharged with v/s stable. Written and verbal after care instructions ABOUT ALCHOL WITHDRAW given and explained. Patient alert, oriented and verbalized understanding of instructions. Wheel Chair Assisted with to LOBBY. All questions addressed prior to discharge. ID band removed. Patient advised to follow up with PMD. Rx of IBUPROFEN, LEVETIRACETAM, CHLORIDIAZAPOXIDE given. Opportunity to ask questions provided and answered.
== END 2020-12-19 07:44 | disposition home or self-care (01) ==
LOC: MED 00:49
DX: F10.20 Alcohol dependence, uncomplicated (principal); R53.1 Weakness; J45.909 Unspecified asthma, uncomplicated; I10 Essential (primary) hypertension; K21.9 Gastro-esophageal reflux disease without esophagitis; Z79.899 Other long term (current) drug therapy; Z98.890 Other specified postprocedural states
CPT/HCPCS: 96372; 99283; J1885

== ENCOUNTER 2021-07-22 14:04 | Emergency (ER) | payer OTHER ==
[~2021-07-22] VITALS: Ht 182.9 cm; Wt 70.8 kg
[~2021-07-22 14:04] MED LIST changes: +IBUP-2213 PO; +KEP500 PO
--- NOTE | 2021-07-22 14:05 | NUR ---
BIBA to bed 02.
[2021-07-22 14:06] VITALS: BP 109/78
--- NOTE | 2021-07-22 14:19 | NUR ---
EMT at bedside for EKG
[2021-07-22] MEDS ORDERED: NACL 0.9% 1,000 ML IV ONE (14:30)
[2021-07-22] MEDS ORDERED: LORazepam 2 MG/ML VIAL IVP ONE (14:30)
[2021-07-22] MEDS ORDERED: DICYCLOMINE HCL LIQUID 20 MG, ALUMINUM HYD/MAG/SIMETHICONE 30 ML, LIDOCAINE VISCOUS 2% ... PO ONE ×3 (14:30)
[2021-07-22] MEDS ORDERED: levETIRAcetam 1,000 MG in NACL 0.9% 100 ML IV ONE (14:30)
[2021-07-22] MEDS ORDERED: DICYCLOMINE HCL LIQUID 10 MG/5 ML UDC ONE (14:37)
[2021-07-22] MEDS ORDERED: ALUMINUM HYD/MAG/SIMETHICONE 30 ML UDC ONE (14:37)
--- NOTE | 2021-07-22 14:46 | NUR ---
PATIENT ON MONITOR AND GOWN. SIDE RAILS UP X2 WITH SZ PADS ON RAILS . 20G IV CATH PLACED R FOREARM
[2021-07-22 14:56] LABS: BASOPHILS # (AUTO) 0.1 K/uL (0.00-0.22); EOSINOPHILS # (AUTO) 0.1 K/uL (0-0.4); EOSINOPHILS % (AUTO) 3.3 % (0.0-4.0); HEMOGLOBIN 12.1 g/dL (12.0-18.0); LYMPHOCYTES # (AUTO) 0.8 K/uL (2.0-11.5); RED BLOOD CELL COUNT(AUTO) 4.03 MIL/uL (4.20-6.10)
[2021-07-22 15:00] LABS: BASOPHILS % (AUTO) 2.5 % (0.0-2.0); HEMATOCRIT 37.1 % (36-52); LYMPHOCYTES % (AUTO) 37.4 % (20.5-51.1); MEAN CORPUSCULAR HEMOGLOBIN 30 pg (27-31); MEAN CORPUSCULAR HGB CONC 33 g/dL (33-37); MEAN CORPUSCULAR VOLUME 92.2 fL (80-94); MONOCYTES # (AUTO) 0.2 K/uL (0.8-1.0); MONOCYTES % (AUTO) 11.1 % (1.7-9.3); NEUTROPHILS % (AUTO) 45.7 % (42.2-75.2); PLATELET COUNT (AUTO) 75 K/uL (140-450); RED CELL DISTRIBUTION WIDTH 17.7 % (11.6-13.7); WHITE BLOOD COUNT (AUTO) 2.2 K/uL (4.8-10.8)
[2021-07-22 15:12] LABS: ALBUMIN 4.1 g/dL (3.4-5.0); ANION GAP 16.1 (8-16); ASPARTATE AMINOTRANSFERASE 115 U/L (15-37); CHLORIDE 99 mmol/L (98-107); CREATININE 0.7 mg/dL (0.6-1.3); GFR ARICAN-AMERICAN 152 mL/min (>90); GLUCOSE 80 mg/dL (74-106); POTASSIUM 4.1 mmol/L (3.5-5.1); SODIUM SERUM 137 mmol/L (136-145); TOTAL BILIRUBIN 0.7 mg/dL (0.0-1.0); UREA NITROGEN, BLOOD 7 mg/dL (7-18)
--- NOTE | 2021-07-22 15:29 | NUR ---
PAIN LEVEL 7/10. RESTING WITH RESP EVEN AND UNLABORED.
--- NOTE | 2021-07-22 15:42 | NUR ---
2L VIA NC PLACED
--- NOTE | 2021-07-22 17:36 | NUR ---
PT RESTING WITH RESP EVEN AND UNLABORED. NO DISTRESS NOTED. PT ON MONITOR AND 02 VIA NC 2L
[2021-07-22] MEDS ORDERED: KEP500 PO (17:43)
[2021-07-22 18:10] VITALS: BP 128/70
--- NOTE | 2021-07-22 18:10 | NUR ---
Patient discharged with v/s stable. Written and verbal after care instructions given and explained. Patient alert, oriented and verbalized understanding of instructions. Ambulatory with steady gait. All questions addressed prior to discharge. ID band removed. Patient advised to follow up with PMD. Rx of KEPPA given. Patient educated on indication of medication including possible reaction and side effects. Opportunity to ask questions provided and answered.
--- NOTE | 2021-07-22 18:11 | NUR ---
The patient's care was reviewed and supervised by Darby Hackett RN.
== END 2021-07-22 14:25 | disposition home or self-care (01) ==
LOC: MED 14:04
DX: R07.89 Other chest pain (principal); F10.20 Alcohol dependence, uncomplicated; J45.909 Unspecified asthma, uncomplicated; K21.9 Gastro-esophageal reflux disease without esophagitis; I10 Essential (primary) hypertension; Y90.8 Blood alcohol level of 240 mg/100 ml or more; Z79.899 Other long term (current) drug therapy; Z59.00 Homelessness unspecified
CPT/HCPCS: 36415; 71045; 80053; 84484; 85025; 93005; 96361; 96365; 96375; 99285; G0482; J1953; J2060; J7030

== ENCOUNTER 2021-09-03 08:40 | Inpatient (IN) | payer OTHER ==
--- NOTE | 2019-09-04 00:51 | NUR ---
ASSUMED CARE OF THE PATIENT, RECEIVED REPORT FRO ER NURSE MYA, PATIENT HAS HIGH TEMPERATURE (100.9), GIVEN PRN TYLENOL, HE ALSO VERBALIZED PAIN 8/10 AND HIS PRN HYDROCODONE GIVEN. HE IS ON CONTINUOS IV D5NS . HE REPORTS FEELING BETTER AND HIS VITALS ARE WITHIN RANGE. WILL CONTINUE TO MONITOR HIM.
[~2021-09-03] VITALS: Ht 182.9 cm; Wt 59.4 kg
[2021-09-03 08:48] VITALS: BP 127/83
--- NOTE | 2021-09-03 08:55 | NUR ---
DR DEMARCO AT BEDSIDE FOR EVAL
--- NOTE | 2021-09-03 09:01 | NUR ---
55 Y/O MALE BIBA FROM STREETS PER EMS AROUND [facility], C/O OF DIARRHEA "FOR WEEKS", GENERALIZED BODY PAIN 09/22. PER PT HE HAS HAD 3 SEIZURES IN THE LAST WEEK, LAST SEIZURE WAS YESTERDAY, DOES NOT RECALL HOW LONG AND IF HE HIT HIS HEAD. A/OX4, SEIZURE PADS PLACED. PER PT HE HAS BEEN 3 WEEKS WITHOUT KEPPRA. PER EMS PT BS WAS 72 ON SCENE AND 112 AT BEDSIDE. WAS GIVEN ORAL GLUCOSE BY EMS nka pmh: epilepsy, gerd, RA
--- NOTE | 2021-09-03 09:03 | NUR ---
PT IN BATHROOM CLEANING UP
[2021-09-03] MEDS ORDERED: NACL 0.9% 1,000 ML IV ONE (09:05)
[2021-09-03 09:41] LABS: BASOPHILS # (AUTO) 0.1 K/uL (0.00-0.22); BASOPHILS % (AUTO) 1.7 % (0.0-2.0); EOSINOPHILS % (AUTO) 0.2 % (0.0-4.0); HEMATOCRIT 44.2 % (36-52); HEMOGLOBIN 14.6 g/dL (12.0-18.0); LYMPHOCYTES # (AUTO) 0.4 K/uL (2.0-11.5); LYMPHOCYTES % (AUTO) 14.1 % (20.5-51.1); MEAN CORPUSCULAR HEMOGLOBIN 31 pg (27-31); MEAN CORPUSCULAR HGB CONC 33 g/dL (33-37); MEAN CORPUSCULAR VOLUME 93.7 fL (80-94); MONOCYTES # (AUTO) 0.3 K/uL (0.8-1.0); MONOCYTES % (AUTO) 8.3 % (1.7-9.3); NEUTROPHILS # (AUTO) 2.3 K/uL (1.8-7.7); NEUTROPHILS % (AUTO) 75.7 % (42.2-75.2); PLATELET COUNT (AUTO) 44 K/uL (140-450); RED BLOOD CELL COUNT(AUTO) 4.71 MIL/uL (4.20-6.10); RED CELL DISTRIBUTION WIDTH 18.4 % (11.6-13.7)
--- NOTE | 2021-09-03 09:52 | NUR ---
20G IV CATH PLACED IN RIGHT FOREARM. LABS COLLECTED AND SENT
[2021-09-03 10:02] LABS: ALBUMIN 4.8 g/dL (3.4-5.0); ANION GAP 26.3 (8-16); CARBON DIOXIDE 20.8 mmol/L (21-32); CREATININE 0.8 mg/dL (0.6-1.3); MAGNESIUM 2.1 mg/dL (1.8-2.4); POTASSIUM 4.1 mmol/L (3.5-5.1); TOTAL BILIRUBIN 1.3 mg/dL (0.0-1.0)
[2021-09-03] MEDS ORDERED: LACTATED RINGERS 1,000 ML IV ONE (10:20)
[2021-09-03] MEDS ORDERED: LORazepam 1 MG TAB PO ONE (10:20)
--- NOTE | 2021-09-03 12:31 | NUR ---
PT SLEEPING RESP EVEN AND UNLABORED. HOB ELEVATED ON BEDSIDE MONITOR. VS WNL. SIDE RAILS UP X2 SZ PADS ON RAILS.
--- NOTE | 2021-09-03 15:11 | NUR ---
PROVIDED PT WITH A CRANBERRY JUICE.
--- NOTE | 2021-09-03 15:19 | NUR ---
URINE OBTAINED AND SENT TO LAB
[2021-09-03] MEDS ORDERED: levETIRAcetam 500 MG TAB PO ONE (15:30)
[2021-09-03] MEDS ORDERED: chlordiazePOXIDE 25 MG CAP PO ONE (15:30)
[2021-09-03 15:31] LABS: APPEARANCE,URINE CLEAR (CLEAR); BILIRUBIN,URINE 1+ (NEGATIVE); BLOOD, URINE TRACE-I (NEGATIVE); COLOR,URINE YELLOW (YELLOW); LEUKOCYTE ESTERASE ,URINE NEGATIVE (NEGATIVE); NITRITE, URINE NEGATIVE (NEGATIVE); UGLUCOSE NEGATIVE (NEGATIVE)
--- NOTE | 2021-09-03 16:10 | NUR ---
ULTRASOUND AT BEDSIDE. PT WILL BE ADMITTED TO TELE. RESP EVEN AND UNLABORED
[2021-09-03 16:11] LABS: WBC,URINE 0-5 /HPF (0-5)
[2021-09-03] MEDS ORDERED: ONDANSETRON 4 MG/2 ML VIAL IVP PRN (17:40)
[2021-09-03] MEDS ORDERED: DIAZEPAM PFS 10 MG/2 ML SYR IVP PRN (17:40)
[2021-09-03] MEDS ORDERED: LOPERAMIDE 2 MG CAP PO PRN (17:40)
[2021-09-03] MEDS ORDERED: FOLIC ACID 1 MG TAB PO SCH (17:53)
[2021-09-03] MEDS: DEXT 5% /NACL 0.9% 1,000 ML IV SCH (18:20)
[2021-09-03] MEDS ORDERED: LORazepam 1 MG TAB ONE (18:26)
[2021-09-03] MEDS: LORazepam 1 MG TAB PO PRN ×2 (18:29→23:57)
--- NOTE | 2021-09-03 19:39 | NUR ---
SWAB COLLECTED AND WALKD TO LAB
--- NOTE | 2021-09-03 21:25 | NUR ---
Patient will be admitted to care of [facility]. Admited to MD JCARLOS. Will go to room 111B. Belongings list completed. Report to AMINA MARTINEZ .
--- NOTE | 2021-09-03 21:25 | NUR ---
Chart checked and completed.
[2021-09-03 23:32] VITALS: BP 128/84
[2021-09-03] MEDS: ACETAMINOPHEN 325 MG TAB PO PRN (23:41)
[2021-09-04] MEDS: DEXT 5% /NACL 0.9% 1,000 ML IV SCH ×3 (03:57→23:40)
[2021-09-04 04:01] VITALS: BP 120/80
--- NOTE | 2021-09-04 07:07 | NUR ---
PATIENT HAS BEEN SCREENED AND CATEGORIZED HIGH NUTRITION RISK. PATIENT WILL BE SEEN WITHIN 1-2 DAYS OF ADMISSION. 09/04/21-09/05/21 NATALIE ALTAMIRANO MS, RDN
[2021-09-04 07:12] LABS: ALBUMIN 3.8 g/dL (3.4-5.0); CARBON DIOXIDE 27.4 mmol/L (21-32); CREATININE 0.6 mg/dL (0.6-1.3); MAGNESIUM 1.6 mg/dL (1.8-2.4); POTASSIUM 3.4 mmol/L (3.5-5.1); TOTAL BILIRUBIN 1.7 mg/dL (0.0-1.0)
[2021-09-04 07:31] LABS: EOSINOPHILS # (AUTO) 0.1 K/uL (0-0.4); EOSINOPHILS % (AUTO) 2.8 % (0.0-4.0); HEMATOCRIT 38.4 % (36-52); HEMOGLOBIN 12.7 g/dL (12.0-18.0); LYMPHOCYTES # (AUTO) 0.7 K/uL (2.0-11.5); LYMPHOCYTES % (AUTO) 25.4 % (20.5-51.1); MEAN CORPUSCULAR HEMOGLOBIN 31 pg (27-31); MEAN CORPUSCULAR HGB CONC 33 g/dL (33-37); MEAN CORPUSCULAR VOLUME 93.4 fL (80-94); MONOCYTES # (AUTO) 0.2 K/uL (0.8-1.0); MONOCYTES % (AUTO) 8.7 % (1.7-9.3); NEUTROPHILS # (AUTO) 1.6 K/uL (1.8-7.7); NEUTROPHILS % (AUTO) 62.1 % (42.2-75.2); PLATELET COUNT (AUTO) 34 K/uL (140-450); RED BLOOD CELL COUNT(AUTO) 4.12 MIL/uL (4.20-6.10); RED CELL DISTRIBUTION WIDTH 18.4 % (11.6-13.7); WHITE BLOOD COUNT (AUTO) 2.6 K/uL (4.8-10.8)
[2021-09-04 08:00] VITALS: BP 137/93
--- NOTE | 2021-09-04 08:04 | NUR ---
RECEIVED REPORT FROM SCHEDULE ANALYST NURSE FOR CONTINUITY OF CARE, POC DISCUSSED. PT IS STABLE IN BED. ALL SAFETY MEASURES IN PLACE, CALL LIGHT WITHIN REACH. WILL CONTINUE TO MONITOR.
[2021-09-04] MEDS: chlordiazePOXIDE 25 MG CAP PO SCH ×3 (08:30→16:33)
[2021-09-04] MEDS: THIAMINE 100 MG TAB PO SCH (08:31)
[2021-09-04] MEDS: MULTIVITAMIN/MINERALS 1 TAB PO SCH (08:31)
[2021-09-04] MEDS: HYDROcodone/APAP 5/325 MG 1 TAB TAB PO PRN ×2 (08:32)
--- NOTE | 2021-09-04 08:32 | NUR ---
MISTY MEDICATION ADMINISTERED PER MD ORDER, PT TOLERATED ADMINISTRATION. PT REPORTS PAIN 5/10, MEDICATED PER MD ORDER. PT TOLERATED ADMINISTRATION. ALL QUESTIONS HAVE BEEN ANSWERED. PT IS STABLE. ALL SAFETY MEASURES IN PLACE, CALL LIGHT WITHIN REACH. WILL CONTINUE TO MONITOR.
[2021-09-04] MEDS ORDERED: FOLIC ACID 1 MG TAB PO SCH (09:00)
[2021-09-04] MEDS: levETIRAcetam 500 MG TAB PO SCH ×2 (10:09→21:34)
--- NOTE | 2021-09-04 11:49 | NUR ---
(09/04/21) RD INITIAL ASSESSMENT COMPLETED PLEASE REFER TO NUTRITION ASSESSMENT UNDER CARE ACTIVITY FOR ESTIMATED NUTRITIONAL NEEDS. RD RECOMMENDATIONS: 1. CONTINUE REGULAR DIET TOLERATED 2. CONSULT RDN PRN. 3. RD WILL F/U 3-5 DAYS; MODERATE RISK. NATALIE ALTAMIRANO MS, RDN
--- NOTE | 2021-09-04 13:00 | NUR ---
MISTY MEDICATION ADMINISTERED PER MD ORDER, PT TOLERATED ADMINISTRATION. PT STATES HE IS FEELING ANXIOUS, MEDICATED PER MD ORDER. PT TOLERATED ADMINISTRATION. ALL SAFETY MEASURES IN PLACE, CALL LIGHT WITHIN REACH. WILL CONTINUE TO MONITOR.
[2021-09-04] MEDS: LORazepam 1 MG TAB PO PRN ×2 (13:11→21:34)
[2021-09-04] MEDS: HYDROXYZINE HYDROCHLORIDE 25 MG TAB PO SCH (16:33)
--- NOTE | 2021-09-04 17:00 | NUR ---
MISTY MEDICATION ADMINISTERED PER MD ORDER, PT TOLERATED ADMINISTRATION. ALL SAFETY MEASURES IN PLACE. CALL LIGHT WITHIN REACH. WILL CONTINUE TO MONITOR.
--- NOTE | 2021-09-04 18:17 | NUR ---
CHAMBER MAGISTRATE REPORTED PT REFUSED TO CLEAN HIMSELF UP, PT REPORTS FRUSTRATION WITH CHAMBER MAGISTRATE BECAUSE SHE TRIED TO CLEAN HIM UP. EDUCATED HIM ON IMPORTANCE OF STAYING CLEAN AND CHANGING SHEETS. PT STATED HE UNDERSTANDS BUT WANTS TO DO IT HIMSELF, WIPES PROVIDED AND EDUCATED PT ON IMPORTANCE OF VOICING THAT TO THE CNAS. NO BM NOTED FOR THE DAY, PT AWARE OF THE NEED FOR COLLECTING STOOL SAMPLE
--- NOTE | 2021-09-04 18:50 | NUR ---
ALL NEEDS HAVE BEEN MET THROUGHOUT THE SHIFT, ENDORSE PENDING PSYCH CONSULT. PT STABLE.
--- NOTE | 2021-09-04 19:30 | NUR ---
RECEIVED PATIENT FROM AM SHIFT RN. PT IS FULL CODE, NKA, AMBULATES, A/O X4. PT IS ON CONTACT PRECAUTION. PT IS HOMELESS. PT ON ROOM AIR BREATHING E/U. PT IS ON A REGULAR DIET. HE HAS A RAC PIV 20G INTACT AND SECURE, INFUSING D5 NS @100ML/HR. SKIN IS INTACT. BED IN LOWEST POSITION, CALL LIGHT IN REACH, HOB ELEVATED, SIDE RAILS X2. PENDING STOOL SAMPLE. WILL CONTINUE TO MONITOR PATIENT.
[2021-09-04 20:00] VITALS: BP 136/91
[2021-09-05 04:00] VITALS: BP 128/90
--- NOTE | 2021-09-05 04:30 | NUR ---
PATIENT PULLED OUT IV, HE IS REFUSING INSERTION OF ANOTHER IV CHARGE NURSE MADE AWARE
[2021-09-05 06:27] LABS: BASOPHILS % (AUTO) 1.3 % (0.0-2.0); EOSINOPHILS # (AUTO) 0.2 K/uL (0-0.4); EOSINOPHILS % (AUTO) 5.8 % (0.0-4.0); HEMATOCRIT 41.1 % (36-52); HEMOGLOBIN 13.8 g/dL (12.0-18.0); LYMPHOCYTES # (AUTO) 0.7 K/uL (2.0-11.5); LYMPHOCYTES % (AUTO) 24.3 % (20.5-51.1); MEAN CORPUSCULAR HEMOGLOBIN 31 pg (27-31); MEAN CORPUSCULAR HGB CONC 34 g/dL (33-37); MEAN CORPUSCULAR VOLUME 93.2 fL (80-94); MONOCYTES # (AUTO) 0.3 K/uL (0.8-1.0); MONOCYTES % (AUTO) 9.4 % (1.7-9.3); NEUTROPHILS # (AUTO) 1.7 K/uL (1.8-7.7); NEUTROPHILS % (AUTO) 59.2 % (42.2-75.2); PLATELET COUNT (AUTO) 35 K/uL (140-450); RED BLOOD CELL COUNT(AUTO) 4.41 MIL/uL (4.20-6.10); RED CELL DISTRIBUTION WIDTH 17.9 % (11.6-13.7); WHITE BLOOD COUNT (AUTO) 2.8 K/uL (4.8-10.8)
[2021-09-05 06:42] LABS: ANION GAP 17.2 (8-16); CARBON DIOXIDE 25.9 mmol/L (21-32); CREATININE 0.7 mg/dL (0.6-1.3); MAGNESIUM 1.4 mg/dL (1.8-2.4); POTASSIUM 3.1 mmol/L (3.5-5.1); TOTAL BILIRUBIN 1.6 mg/dL (0.0-1.0)
--- NOTE | 2021-09-05 07:30 | NUR ---
RECEIVED REPORT FROM [employer] FABRICATOR NURSE FOR CONTINUITY OF CARE, OVERNIGHT EVENTS DISCUSSED. POC OF CARE CONTINUING. PT REFUSING NEW IV. NIGHT RN REPORTS PT CONFUSED THROUGHOUT THE NIGHT. PT CURRENTLY ASLEEP WITH CHEST RISING AND FALLING EVEN AND UNLABORED. ALL SAFETY MEASURES IN PLACE, CALL LIGHT WITHIN REACH. WILL CONTINUE TO MONITOR.
[2021-09-05 08:00] VITALS: BP 171/84
[2021-09-05] MEDS: THIAMINE 100 MG TAB PO SCH (08:22)
[2021-09-05] MEDS: METOPROLOL SUCCINATE 50 MG TABER PO SCH (08:22)
[2021-09-05] MEDS: MULTIVITAMIN/MINERALS 1 TAB PO SCH (08:22)
[2021-09-05] MEDS: lisinopriL 5 MG TAB PO SCH (08:22)
[2021-09-05] MEDS: HYDROXYZINE HYDROCHLORIDE 25 MG TAB PO SCH ×3 (08:23→16:32)
[2021-09-05] MEDS: levETIRAcetam 500 MG TAB PO SCH ×2 (08:23→21:44)
[2021-09-05] MEDS: PANTOPRAZOLE 40 MG TABEC PO SCH (08:23)
[2021-09-05] MEDS: LORazepam 1 MG TAB PO PRN ×3 (08:24→23:18)
[2021-09-05] MEDS: DEXT 5% /NACL 0.9% 1,000 ML IV SCH (08:30)
[2021-09-05] MEDS: chlordiazePOXIDE 25 MG CAP PO SCH ×3 (08:30→16:32)
--- NOTE | 2021-09-05 09:00 | NUR ---
MISTY MEDIATION ADMINISTERED PER MD ORDER, PRN ATIVAN ADMINISTERED PER MD ORDER. PT STATED HE IS WILLING TO GET IV PLACED. ATTEMPTED 3 TIMES, UNSUCCESSFUL. PT TOLERATED ATTEMPTS. SUPPLY CHAIN ASSISTANT NOTIFIED AND WILL ATTEMPT. PT SITTING UP WITH BREAKFAST IN FRONT OF HIM. PT STABLE. ALL SAFETY MEASURES IN PLACE. CALL LIGHT WITHIN REACH. WILL CONTINUE TO MONITOR.
--- NOTE | 2021-09-05 11:00 | NUR ---
NEW IV INSERT TO RIGHT FA 20, PT TOLERATED INSERTION. RECONNECTED TO IV FLUIDS. PT REPORTS NOT HAVING ANY URGE TO HAVE A BOWEL MOVEMENT. EDUCATED PT THAT WHEN HE DOES TO LET US KNOW SO WE CAN COLLECT STOOL SAMPLE. PT ASSISTED TO THE CHAIR, STATED HE DOES NOT WANT TO GET CLEANED. EDUCATED PT ON IMPORTANCE OF REMAINING CLEAN, PT ALLOWED FOR NEW LINENS BUT REFUSED WIPES TO CLEAN UP SELF.
--- NOTE | 2021-09-05 13:00 | NUR ---
MISTY MEDICATION ADMINISTERED PER MD ORDER. PT TOLERATED ADMINISTRATION. PT SITTING UP EATING LUNCH. REPORTS ALL NEEDS ARE MET. ALL SAFETY MEASURES IN PLACE, CALL LIGHT WITHIN REACH. WILL CONTINUE TO MONITOR.
--- NOTE | 2021-09-05 15:00 | NUR ---
ROUNDED ON PT, PT IS STABLE IN BED WITH NO ACUTE S/S OF DISTRESS. ASLEEP ON ROOM AIR WITH CHEST RISING AND FALLING EVEN AND UNLABORED. ALL SAFETY MEASURES IN PLACE, CALL LIGHT WITHIN REACH. WILL CONTINUE TO MONITOR.
[2021-09-05 16:00] VITALS: BP 106/78
--- NOTE | 2021-09-05 16:03 | NUR ---
MD AT BEDSIDE ASSESSING PT
[2021-09-05] MEDS ORDERED: MAG SULF 2000 MG/WATER PREMIX 50 ML IV ONE (16:15)
[2021-09-05] MEDS ORDERED: POTASSIUM CHLORIDE 10 MEQ TABER PO ONE (16:15)
[2021-09-05] MEDS ORDERED: LOPERAMIDE 2 MG CAP PO PRN (16:20)
--- NOTE | 2021-09-05 16:49 | NUR ---
MISTY MEDICATION ADMINISTERED PER MD ORDER, POT AND MAG REPLENISHED. PRN ATIVAN ADMINISTERED PER MD ORDER. PT RESTING IN BED WITH NO ACUTE S/S OF DISTRESS. ALL SAFETY MEASURES IN PLACE. CALL LIGHT WITHIN REACH. WILL CONTINUE TO MONITOR.
--- NOTE | 2021-09-05 18:13 | NUR ---
ROUNDED ON PT, PT RESTING IN BED WITH NO ACUTE S/S OF DISTRESS. ALL SAFETY MEASURES IN PLACE, CALL LIGHT WITHIN REACH. WILL CONTINUE TO MONITOR.
--- NOTE | 2021-09-05 18:37 | NUR ---
PT HAS REMAINED STABLE THROUGHOUT THE SHIFT WITH NO S/S OF ACUTE DISTRESS. ALL NEEDS HAVE BEEN MET. ALL SAFETY MEASURES IN PLACE, CALL LIGHT WITHIN REACH. WILL CONTINUE TO MONITOR & PT WILL BE ENDORSED TO COMPRESSION MOLDING MACHINE TENDER NURSE AT 1900.
--- NOTE | 2021-09-05 19:30 | NUR ---
RECEIVED REPORT FROM DAY SHIFT NURSE TERRY FOR CONTINUITY OF CARE. PATIENT WAS SITTING UP IN BED EATING DINNER. PATIENT HAS IV RFA 20G, RUNNING D5/NS @ 100ML/HR. PATIENT IS ON ROOM AIR, BREATHING WAS NORMAL AND NON LABORED WITH SYMMETRICAL RISE AND FALL OF CHEST. BED WAS IN LOWEST POSITION, WHEELS LOCKED, AND CALL LIGHT WAS IN PLACE. WILL CONTINUE TO OBSERVE PATIENT.
[2021-09-05 20:00] VITALS: BP 91/61
--- NOTE | 2021-09-05 22:00 | NUR ---
GAVE PATIENT 2100 MEDICATION. PATIENT TOLERATED WELL. PATIENT WAS LYING IN BED AND ASKED FOR A SANDWICH. WENT INTO [place] AND GOT PATIENT A SANDWICH. PATIENT SAT IN BED AND WATCHED TV WHILE EATING SANDWICH. PATIENT WAS A&O X4, BED WAS IN LOWEST POSITION, WHEELS LOCKED, CALL LIGHT IN PLACE. WILL CONTINUE TO OBSERVE.
[2021-09-05] MEDS: ACETAMINOPHEN 325 MG TAB PO PRN (23:19)
--- NOTE | 2021-09-05 23:30 | NUR ---
PATIENT REQUESTED ATIVAN FOR ANXIETY AND TYLENOL FOR PAIN. CHECKED CHART AND PATIENT WAS ABLE TO RECEIVE BOTH MEDICATIONS. ADMINISTERED MEDICATIONS. PATIENT TOLERATED WELL. PATIENT STATED HE WOULD TRY AND GO TO SLEEP. BREATHING WAS NORMAL WITH SYMMETRICAL RISE AND FALL OF CHEST. IV RUNNING D5/NS @ 100. BED WAS IN LOWEST POSITION, CALL LIGHT IN REACH. WILL CONTINUE TO OBSERVE.
--- NOTE | 2021-09-06 00:20 | NUR ---
REASSESSED PATIENT'S PAIN. PATIENT STATED PAIN WAS RESTING. WILL CONTINUE TO OBSERVE.
--- NOTE | 2021-09-06 02:00 | NUR ---
PATIENT WOKE UP AND REQUESTED THAT HE BE DISCONNECTED FORM IV. PATIENT WAS DISCONNECTED AND REFUSED TO BE RECONNECTED. STATED IT INTERRUPTS HIS SLEEPING. PATIENT WAS NOT RECONNECTED. WILL CONTINUE TO OBSERVE PATIENT.
[2021-09-06 04:00] VITALS: BP 133/94
--- NOTE | 2021-09-06 04:30 | NUR ---
LOOKED IN ON PATIENT. PATIENT WAS SLEEPING. IV STILL DISCONNECTED. PATIENT WAS AWAKE AND WATCHING TELEVISION. PATIENT'S BREATHING WAS NORMAL WITH SYMMETRICAL RISE AND FALL OF CHEST. PATIENT DID NOT WANT IV HOOKED BACK UP. WILL CONTINUE TO OBSERVE.
[2021-09-06] MEDS: LORazepam 1 MG TAB PO PRN (06:51)
--- NOTE | 2021-09-06 06:52 | NUR ---
PATIENT REQUESTED ATIVAN. CHART WAS CHECKED, ATIVAN WAS OKAY TO GIVE. PATIENT TOLERATED. WILL CONTINUE TO OBSERVE.
[2021-09-06 07:30] LABS: EOSINOPHILS # (AUTO) 0.1 K/uL (0-0.4); EOSINOPHILS % (AUTO) 5.1 % (0.0-4.0); HEMOGLOBIN 13.2 g/dL (12.0-18.0); LYMPHOCYTES # (AUTO) 0.6 K/uL (2.0-11.5); LYMPHOCYTES % (AUTO) 22.9 % (20.5-51.1); MEAN CORPUSCULAR HEMOGLOBIN 31 pg (27-31); MEAN CORPUSCULAR HGB CONC 33 g/dL (33-37); MEAN CORPUSCULAR VOLUME 94.6 fL (80-94); MONOCYTES # (AUTO) 0.3 K/uL (0.8-1.0); MONOCYTES % (AUTO) 12.2 % (1.7-9.3); NEUTROPHILS # (AUTO) 1.6 K/uL (1.8-7.7); NEUTROPHILS % (AUTO) 58.8 % (42.2-75.2); PLATELET COUNT (AUTO) 38 K/uL (140-450); RED BLOOD CELL COUNT(AUTO) 4.23 MIL/uL (4.20-6.10); RED CELL DISTRIBUTION WIDTH 18.1 % (11.6-13.7); WHITE BLOOD COUNT (AUTO) 2.7 K/uL (4.8-10.8)
--- NOTE | 2021-09-06 07:30 | NUR ---
ENDORSED TO DAY SHIFT NURSE FOR CONTINUITY OF CARE. PATIENT IS STABLE.
[2021-09-06 07:53] LABS: ALBUMIN 3.9 g/dL (3.4-5.0); ANION GAP 13.7 (8-16); CARBON DIOXIDE 27.1 mmol/L (21-32); CREATININE 0.7 mg/dL (0.6-1.3); MAGNESIUM 1.8 mg/dL (1.8-2.4); POTASSIUM 3.8 mmol/L (3.5-5.1); TOTAL BILIRUBIN 1.2 mg/dL (0.0-1.0)
--- NOTE | 2021-09-06 08:00 | NUR ---
Patient's Plan of Care was discussed and reviewed with TOP CASE ASSEMBLER: ERICH
[2021-09-06] MEDS: HYDROXYZINE HYDROCHLORIDE 25 MG TAB PO SCH ×2 (09:26→13:12)
[2021-09-06] MEDS: levETIRAcetam 500 MG TAB PO SCH (09:27)
[2021-09-06] MEDS: THIAMINE 100 MG TAB PO SCH (09:27)
[2021-09-06] MEDS: METOPROLOL SUCCINATE 50 MG TABER PO SCH (09:28)
[2021-09-06] MEDS: lisinopriL 5 MG TAB PO SCH (09:28)
[2021-09-06] MEDS: MULTIVITAMIN/MINERALS 1 TAB PO SCH (09:29)
[2021-09-06] MEDS: PANTOPRAZOLE 40 MG TABEC PO SCH (09:29)
--- NOTE | 2021-09-06 09:44 | NUR ---
RECEIVED CALL FROM LAB THAT WE NEED TO COLLECT [place] FOR CI DIFF BUT PATIENT HAS NO BOWEL MOVEMENT FOR 3 DAYS. ALSO PATIENT REFUSING HIS IV HYDRATION CLAIMED THAT HIS DRINKING ENOUGH FLUID EVEN WITH [id number] AND EXPLANATION. LEFT MESSAGE TO DR. GARBER. WAITING FOR RESPONSE.
[2021-09-06] MEDS: chlordiazePOXIDE 25 MG CAP PO SCH ×2 (09:48→13:12)
--- NOTE | 2021-09-06 12:30 | NUR ---
PATIENT ALERT FOUND ON THE FLOOR SITTING WHEN WE ASKED WHAT HAPPEN HE SAID DON'T WORRY I JUST SIT HERE BECAUSE THE BED IS TOO HOT AND THE FLOOR IS COOLER. ASSISTED NAM BACK TO BED AND HE REQUEST FOR DISPOSABLE UNDERWEAR. I GAVE HIM AND ASSIST PATIENT TO PUT IT ON. PATIENT NOTED IV OUT OFFERED TO PUT IT BACK BUT HE REFUSED. WILL TRY AGAIN LATER.
--- NOTE | 2021-09-06 14:30 | NUR ---
PATIENT ASLEEP NO DISTRESS NOTED. CALL LIGHT WITH IN EASY REACH.
[2021-09-06] MEDS ORDERED: LEVE500T9 PO (14:46)
[2021-09-06] MEDS ORDERED: METO50TE2 PO (14:46)
[2021-09-06] MEDS ORDERED: LISI5TAB18 PO (14:46)
--- NOTE | 2021-09-06 15:54 | NUR ---
PT IS EVALUATING AND ASSESSING PATIENT AND RECOMMEND FOR PATIENT TO HAVE WALKER. INFORM DR. JCARLOS RIVAS FOR TELEPHONE TECHNICIAN FOR WALKER.
[2021-09-06 16:00] VITALS: BP 112/83
--- NOTE | 2021-09-06 17:35 | NUR ---
PATIENT SIGN DISCHARGE PACKET WITH INSTRUCTION PATIENT WITH UNDERSTANDING. NO IV LINE NAME BAND REMOVED. GIVEN ALL BELONGINGS WITH WALKER PROVIDED FOR HIM. WHEELED PATIENT UNTIL HE ENTER THE [employer] [facility]SP[facility]ATION. PATIENT ON STABLE CONDITION.
== END 2021-09-06 17:55 | disposition home or self-care (01) | DRG 280 ==
LOC: MED 08:40 → MMU 17:47 → MTU 20:52
PROVIDERS: ADMIT Internal Medicine; ATTEND Internal Medicine
DX: K70.9 Alcoholic liver disease, unspecified (principal); R65.10 Systemic inflammatory response syndrome (SIRS) of non-infectious origin without acute organ dysfunction; E83.42 Hypomagnesemia; E86.0 Dehydration; F10.139 Alcohol abuse with withdrawal, unspecified; G40.909 Epilepsy, unspecified, not intractable, without status epilepticus; E87.6 Hypokalemia; Y90.9 Presence of alcohol in blood, level not specified; Z20.822 Contact with and (suspected) exposure to COVID-19; K21.9 Gastro-esophageal reflux disease without esophagitis; I10 Essential (primary) hypertension; M06.9 Rheumatoid arthritis, unspecified; Z82.5 Family history of asthma and other chronic lower respiratory diseases; Z79.899 Other long term (current) drug therapy; Z82.49 Family history of ischemic heart disease and other diseases of the circulatory system; Z59.00 Homelessness unspecified; Z91.14 Patient's other noncompliance with medication regimen
CPT/HCPCS: 36415; 71045; 76705; 80053; 81001; 82272; 83735; 83880; 84484; 85025; 87045; 87070; 87081; 93005; 96360; 96361; 97116; 97163-GP; 99285; J3475; J7030; J7120; Q0092

== ENCOUNTER 2021-09-08 13:50 | Emergency (ER) | payer OTHER ==
[~2021-09-08] VITALS: Ht 182.9 cm; Wt 72.6 kg
[~2021-09-08 13:50] MED LIST changes: -IBUP-2213 PO; -KEP500 PO
[2021-09-08 14:01] VITALS: BP 89/57
[2021-09-08] MEDS ORDERED: ONDANSETRON 4 MG/2 ML VIAL IVP ONE (14:25)
[2021-09-08] MEDS ORDERED: NACL 0.9% 1,000 ML IV ONE (14:25)
[2021-09-08 14:51] LABS: BASOPHILS # (AUTO) 0.1 K/uL (0.00-0.22); BASOPHILS % (AUTO) 2.4 % (0.0-2.0); EOSINOPHILS # (AUTO) 0.2 K/uL (0-0.4); EOSINOPHILS % (AUTO) 5.6 % (0.0-4.0); HEMATOCRIT 40.2 % (36-52); HEMOGLOBIN 13.4 g/dL (12.0-18.0); LYMPHOCYTES # (AUTO) 1.1 K/uL (2.0-11.5); LYMPHOCYTES % (AUTO) 28.6 % (20.5-51.1); MEAN CORPUSCULAR HEMOGLOBIN 32 pg (27-31); MEAN CORPUSCULAR HGB CONC 33 g/dL (33-37); MEAN CORPUSCULAR VOLUME 94.8 fL (80-94); MONOCYTES # (AUTO) 0.7 K/uL (0.8-1.0); MONOCYTES % (AUTO) 17.6 % (1.7-9.3); NEUTROPHILS # (AUTO) 1.7 K/uL (1.8-7.7); NEUTROPHILS % (AUTO) 45.8 % (42.2-75.2); PLATELET COUNT (AUTO) 114 K/uL (140-450); RED BLOOD CELL COUNT(AUTO) 4.24 MIL/uL (4.20-6.10); RED CELL DISTRIBUTION WIDTH 18.4 % (11.6-13.7); WHITE BLOOD COUNT (AUTO) 3.7 K/uL (4.8-10.8)
[2021-09-08 15:25] LABS: ALBUMIN 4.2 g/dL (3.4-5.0); ANION GAP 23.2 (8-16); CREATININE 1.7 mg/dL (0.6-1.3); POTASSIUM 3.2 mmol/L (3.5-5.1); TOTAL BILIRUBIN 1.1 mg/dL (0.0-1.0)
[2021-09-08] MEDS ORDERED: ACETAMINOPHEN 325 MG TAB PO ONE (16:00)
--- NOTE | 2021-09-08 16:00 | NUR ---
55/M ROBERT FROM [facility]. PER EMS BYSTANDERS CALLED 911 STATING PATIENT WAS LAYING ON THE GROUND WITH HIS PANTS DOWN. PATIENT ADMITS TO UNKNOWN AMOUNT OF ALCOHOL USE TODAY. BS ON SCENE 65, EMS STATES ORAL GLUCOSE GIVEN BRINGING BS TO 81. UPON ARRIVAL TO ED PATIENT DENIES PAIN OR ANY OTHER MEDICAL COMPLAINTS. PMH: SEIZURES, ALCOHOL ABUSE DIMPLE
[2021-09-08 17:26] VITALS: BP 99/65
--- NOTE | 2021-09-08 17:29 | NUR ---
+ PO challenge no nausea.
--- NOTE | 2021-09-08 17:37 | NUR ---
Patient successfully ambulated 20 steps with walker
--- NOTE | 2021-09-08 17:45 | NUR ---
distilling department supervisor contacted for [employer]. Patient discharged ambulated to outside ER lobby via wheelchair/walker.
--- NOTE | 2021-09-08 17:46 | NUR ---
Patient discharged with v/s stable. Written and verbal after care instructions given and explained. Patient verbalized understanding. Wheel Chair Assisted with to car ([employer]) outside ER lobby. All questions addressed prior to discharge. Advised to follow up with PMD.
== END 2021-09-08 17:46 | disposition home or self-care (01) ==
LOC: MED 13:50
DX: N17.9 Acute kidney failure, unspecified (principal); F10.129 Alcohol abuse with intoxication, unspecified; R41.82 Altered mental status, unspecified; I95.9 Hypotension, unspecified; K21.9 Gastro-esophageal reflux disease without esophagitis
CPT/HCPCS: 36415; 80053; 82550; 85025; 96361; 96374; 99291; 99292; G0482; J2405; J7030

== ENCOUNTER 2021-09-23 20:40 | Emergency (ER) | payer OTHER ==
[~2021-09-23] VITALS: Ht 182.9 cm; Wt 72.6 kg
[2021-09-23 20:45] VITALS: BP 103/78
--- NOTE | 2021-09-23 20:47 | NUR ---
PT ROBERT MEJIA. TAKEN TO [facility]IGU[facility] DE LE[facility]
[2021-09-23 21:54] LABS: BASOPHILS # (AUTO) 0.1 K/uL (0.00-0.22); BASOPHILS % (AUTO) 2.8 % (0.0-2.0); EOSINOPHILS # (AUTO) 0.1 K/uL (0-0.4); EOSINOPHILS % (AUTO) 3.1 % (0.0-4.0); HEMATOCRIT 40.3 % (36-52); HEMOGLOBIN 13.3 g/dL (12.0-18.0); LYMPHOCYTES # (AUTO) 1.9 K/uL (2.0-11.5); LYMPHOCYTES % (AUTO) 45.8 % (20.5-51.1); MEAN CORPUSCULAR HEMOGLOBIN 32 pg (27-31); MEAN CORPUSCULAR HGB CONC 33 g/dL (33-37); MEAN CORPUSCULAR VOLUME 95.5 fL (80-94); MONOCYTES # (AUTO) 0.4 K/uL (0.8-1.0); MONOCYTES % (AUTO) 10.7 % (1.7-9.3); NEUTROPHILS # (AUTO) 1.5 K/uL (1.8-7.7); NEUTROPHILS % (AUTO) 37.6 % (42.2-75.2); PLATELET COUNT (AUTO) 173 K/uL (140-450); RED BLOOD CELL COUNT(AUTO) 4.22 MIL/uL (4.20-6.10); RED CELL DISTRIBUTION WIDTH 18.5 % (11.6-13.7); WHITE BLOOD COUNT (AUTO) 4.1 K/uL (4.8-10.8)
[2021-09-23 22:13] LABS: ALBUMIN 4.2 g/dL (3.4-5.0); ASPARTATE AMINOTRANSFERASE 75 U/L (15-37); CARBON DIOXIDE 25.9 mmol/L (21-32); CHLORIDE 99 mmol/L (98-107); GFR ARICAN-AMERICAN 101 mL/min (>90); GLUCOSE 92 mg/dL (74-106); LIPASE 484 U/L (73-393); POTASSIUM 3.9 mmol/L (3.5-5.1); SODIUM SERUM 138 mmol/L (136-145); TOTAL BILIRUBIN 0.4 mg/dL (0.0-1.0); UREA NITROGEN, BLOOD 12 mg/dL (7-18)
[2021-09-23 22:18] LABS: SALICYLATE 1.3 mg/dL (2.8-20.0)
[2021-09-23 22:20] LABS: ACETAMINOPHEN < 0.5 ug/ml (10-30)
--- NOTE | 2021-09-24 02:00 | NUR ---
PT CALLED, NO ANSWER
--- NOTE | 2021-09-24 03:57 | NUR ---
PT CALLED INSIDE AND OUTSIDE OF LOBBY
[2021-10-11] MEDS ORDERED: LORA-476 PO (13:41)
[2021-10-11] MEDS ORDERED: KEP500 PO (13:41)
[2021-10-11] MEDS ORDERED: ACET-1182 PO (13:41)
[2021-10-11] MEDS ORDERED: FOLI1TAB90 PO (13:41)
[2021-10-11] MEDS ORDERED: THIA-34 PO (13:41)
== END 2021-09-24 02:00 | disposition left against medical advice (07) ==
LOC: MED 20:40
DX: F10.129 Alcohol abuse with intoxication, unspecified (principal); Y90.9 Presence of alcohol in blood, level not specified; Z53.21 Procedure and treatment not carried out due to patient leaving prior to being seen by health care provider
CPT/HCPCS: 36415; 80053; 83690; 85025; G0480; G0482; 99281

== ENCOUNTER 2021-09-24 14:46 | Emergency (ER) | payer OTHER ==
[~2021-09-24] VITALS: Ht 182.9 cm; Wt 68.0 kg
[2021-09-24 14:47] VITALS: BP 100/62
--- NOTE | 2021-09-24 15:45 | NUR ---
55 Y/O MALE BIBA FROM [employer] [employer] [facility] PREBOOK, PT IS BEING CITE RELEASED. PT STATED HE FELT WEAK/DIZZY WAS NOT ABLE TO STAND. PT AMBULATED WITH ASSISTANCE- UNSTEADY GAIT. PT REPORTS PEEING/THROWING UP BLOOD. DENIES DRUGS. PT IS INTOXICATED- REPORTS DRINKING 10 "HURRICANES" TODAY. PT C/O FULL BODY PAIN PMH:LIVER CIRRHOSIS, GERD, RA, ALCOHOLIC NKDA
--- NOTE | 2021-09-24 17:15 | NUR ---
Patient laying in semi-fowlers position with both eyes closed. laboratory monitor in place. VSS; RR even/unlabored SpO2 99% on room air; RR 12.
[2021-09-24 17:53] LABS: APPEARANCE,URINE CLEAR (CLEAR); BILIRUBIN,URINE NEGATIVE (NEGATIVE); BLOOD, URINE NEGATIVE (NEGATIVE); COLOR,URINE YELLOW (YELLOW); LEUKOCYTE ESTERASE ,URINE NEGATIVE (NEGATIVE); NITRITE, URINE NEGATIVE (NEGATIVE); UGLUCOSE NEGATIVE (NEGATIVE)
[2021-09-24 19:00] LABS: BASOPHILS % (AUTO) 1.5 % (0.0-2.0); EOSINOPHILS # (AUTO) 0.1 K/uL (0-0.4); HEMATOCRIT 39.5 % (36-52); LYMPHOCYTES # (AUTO) 1.2 K/uL (2.0-11.5); LYMPHOCYTES % (AUTO) 40.8 % (20.5-51.1); MEAN CORPUSCULAR HEMOGLOBIN 31 pg (27-31); MEAN CORPUSCULAR HGB CONC 33 g/dL (33-37); MEAN CORPUSCULAR VOLUME 95.5 fL (80-94); MONOCYTES # (AUTO) 0.3 K/uL (0.8-1.0); MONOCYTES % (AUTO) 8.9 % (1.7-9.3); NEUTROPHILS # (AUTO) 1.4 K/uL (1.8-7.7); NEUTROPHILS % (AUTO) 45.8 % (42.2-75.2); PLATELET COUNT (AUTO) 134 K/uL (140-450); RED BLOOD CELL COUNT(AUTO) 4.14 MIL/uL (4.20-6.10)
--- NOTE | 2021-09-24 19:19 | NUR ---
Report and transfer of care given to AMINA Lafleur.
[2021-09-24 19:20] LABS: ALBUMIN 3.9 g/dL (3.4-5.0); ANION GAP 15.5 (8-16); CARBON DIOXIDE 25.2 mmol/L (21-32); CREATININE 0.7 mg/dL (0.6-1.3); POTASSIUM 3.7 mmol/L (3.5-5.1); TOTAL BILIRUBIN 0.5 mg/dL (0.0-1.0)
--- NOTE | 2021-09-24 20:21 | NUR ---
PT GIVEN SANDWICH AND JUICE. EATING COMFORTABLY IN BED
--- NOTE | 2021-09-24 20:21 | NUR ---
XRAY AT BEDSIDE
--- NOTE | 2021-09-24 23:40 | NUR ---
Patient appears to be resting comfortably in bed. Vital Signs within normal limits. Respirations even and unlabored.
[2021-09-24 23:58] VITALS: BP 110/71
--- NOTE | 2021-09-24 23:59 | NUR ---
Patient discharged with v/s stable BY ERMD. Written and verbal after care instructions given and explained. Patient verbalized understanding. Ambulatory with steady gait. All questions addressed prior to discharge. Advised to follow up with PMD.
[2021-10-11] MEDS ORDERED: FOLI1TAB90 PO (13:41)
[2021-10-11] MEDS ORDERED: KEP500 PO (13:41)
[2021-10-11] MEDS ORDERED: LORA-476 PO (13:41)
[2021-10-11] MEDS ORDERED: THIA-34 PO (13:41)
[2021-10-11] MEDS ORDERED: ACET-1182 PO (13:41)
== END 2021-09-24 23:59 | disposition home or self-care (01) ==
LOC: MED 14:46
DX: F10.129 Alcohol abuse with intoxication, unspecified (principal); R42 Dizziness and giddiness; B34.9 Viral infection, unspecified; K21.9 Gastro-esophageal reflux disease without esophagitis; Z59.00 Homelessness unspecified; Z79.899 Other long term (current) drug therapy
CPT/HCPCS: 36415; 71045; 80053; 81003; 82948; 83690; 85025; 93005; 99285; Q0092; 81002

== ENCOUNTER 2021-09-28 09:50 | Emergency (ER) | payer OTHER ==
[~2021-09-28] VITALS: Ht 182.9 cm; Wt 86.2 kg
[2021-09-28 09:53] VITALS: BP 101/62
--- NOTE | 2021-09-28 09:56 | NUR ---
Pt ROBERTO JONES, via gurney to ER lobby after triage.
--- NOTE | 2021-09-28 13:00 | NUR ---
Jayy esquivel in EDM - 09/28/21 at 1851 by [email or web address] PATIENT ELOPED FROM FACILITY. DISCHARGE INSTRUCTIONS NOT GIVEN TO PATIENT. DR. JUAN/THADDEUS GELLER NOTIFIED. HOMELESS/ETOH PACKETS NOT GIVEN
--- NOTE | 2021-09-28 13:00 | NUR ---
PATIENT LEFT WITHOUT BEING SEEN BY DR. JUAN/THADDEUS GELLER. NO FURTHER CARE PROVIDED FOR PATIENT.
--- NOTE | 2021-09-28 13:00 | NUR ---
PT WALKED OUT OF LOBBY
[2021-10-11] MEDS ORDERED: ACET-1182 PO (13:41)
[2021-10-11] MEDS ORDERED: FOLI1TAB90 PO (13:41)
[2021-10-11] MEDS ORDERED: KEP500 PO (13:41)
[2021-10-11] MEDS ORDERED: LORA-476 PO (13:41)
[2021-10-11] MEDS ORDERED: THIA-34 PO (13:41)
== END 2021-09-28 13:00 | disposition left against medical advice (07) ==
LOC: MED 09:50
DX: F10.129 Alcohol abuse with intoxication, unspecified (principal); Y90.9 Presence of alcohol in blood, level not specified; Z53.21 Procedure and treatment not carried out due to patient leaving prior to being seen by health care provider

== ENCOUNTER 2022-11-02 06:10 | Emergency (ER) | payer OTHER ==
[~2022-11-02] VITALS: Ht 177.8 cm; Wt 74.8 kg
[~2022-11-02 06:10] MED LIST changes: +ACET-1182 PO; +KEP500 PO; -LEVE500T9 PO; -LIB25 PO; +LORA-476 PO; -MULT-405 PO
[2022-11-02 06:19] VITALS: BP 136/86; PULSE 98; RESP 12; TEMP 96.2; O2SAT 100
[2022-11-02 07:30] VITALS: O2SAT 98
[2022-11-02] MEDS ORDERED: LIB25 PO (07:49)
[2022-11-02] MEDS ORDERED: OMEP40EC24 PO (07:49)
[2022-11-02 10:33] VITALS: BP 142/94; PULSE 89; RESP 17; TEMP 98.9; O2SAT 98
== END 2022-11-02 10:33 | disposition home or self-care (01) ==
LOC: MED 06:10
DX: R53.1 Weakness (principal); K21.9 Gastro-esophageal reflux disease without esophagitis; J45.909 Unspecified asthma, uncomplicated; I10 Essential (primary) hypertension; Z79.899 Other long term (current) drug therapy
CPT/HCPCS: 99283

== ENCOUNTER 2022-12-14 23:45 | Emergency (ER) | payer OTHER ==
[~2022-12-14] VITALS: Ht 177.8 cm; Wt 81.6 kg
[~2022-12-14 23:45] MED LIST changes: +LIB25 PO; +OMEP40EC24 PO
[2022-12-14 23:58] VITALS: BP 123/88; PULSE 83; RESP 18; TEMP 98.1; O2SAT 96
[2022-12-15] MEDS ORDERED: diazePAM 5 MG TAB PO ONE (05:30)
[2022-12-15] MEDS ORDERED: levETIRAcetam 500 MG TAB PO ONE (05:30)
[2022-12-15 05:50] VITALS: BP 128/74; PULSE 76; RESP 16; TEMP 98.1; O2SAT 96
== END 2022-12-15 05:50 | disposition home or self-care (01) ==
LOC: MED 23:45
DX: G40.909 Epilepsy, unspecified, not intractable, without status epilepticus (principal); F10.90 Alcohol use, unspecified, uncomplicated; J45.909 Unspecified asthma, uncomplicated; K21.9 Gastro-esophageal reflux disease without esophagitis; I10 Essential (primary) hypertension; Z79.899 Other long term (current) drug therapy; Y90.9 Presence of alcohol in blood, level not specified
CPT/HCPCS: 99283

== ENCOUNTER 2023-01-24 07:07 | Emergency (ER) | payer OTHER ==
[~2023-01-24] VITALS: Ht 172.7 cm; Wt 81.6 kg
[2023-01-24 07:11] VITALS: BP 139/89; PULSE 78; RESP 20; TEMP 100.4; O2SAT 96
[2023-01-24 07:55] LABS: BASOPHILS % (AUTO) 0.9 % (0.0-2.0); EOSINOPHILS % (AUTO) 0.7 % (0.0-4.0); HEMATOCRIT 38.7 % (36-52); HEMOGLOBIN 12.8 g/dL (12.0-18.0); LYMPHOCYTES # (AUTO) 0.4 K/uL (2.0-11.5); LYMPHOCYTES % (AUTO) 15.1 % (20.5-51.1); MEAN CORPUSCULAR HEMOGLOBIN 33 pg (27-31); MEAN CORPUSCULAR HGB CONC 33 g/dL (33-37); MEAN CORPUSCULAR VOLUME 97.8 fL (80-94); MONOCYTES # (AUTO) 0.3 K/uL (0.8-1.0); MONOCYTES % (AUTO) 10.4 % (1.7-9.3); NEUTROPHILS % (AUTO) 72.9 % (42.2-75.2); PLATELET COUNT (AUTO) 35 K/uL (140-450); RED BLOOD CELL COUNT(AUTO) 3.95 MIL/uL (4.20-6.10); RED CELL DISTRIBUTION WIDTH 15.8 % (11.6-13.7); WHITE BLOOD COUNT (AUTO) 2.8 K/uL (4.8-10.8)
[2023-01-24 08:06] LABS: ANION GAP 19.3 (8-16); CALCIUM 8.5 mg/dL (8.5-10.1); CREATININE 0.7 mg/dL (0.6-1.3); POTASSIUM 4.3 mmol/L (3.5-5.1)
[2023-01-24 08:20] LABS: ALANINE AMINOTRANSFERASE 33 U/L (12-78); ALKALINE PHOSPHATASE 87 U/L (50-136); ASPARTATE AMINOTRANSFERASE 67 U/L (15-37); BILIRUBIN,DIRECT 0.2 mg/dL (0.0-0.3); LIPASE 104 U/L (16-77); TOTAL BILIRUBIN 0.6 mg/dL (0.0-1.0); TOTAL PROTEIN, SERUM 7.6 g/dL (6.4-8.2)
[2023-01-24] MEDS ORDERED: FAMO-92 PO (11:46)
[2023-01-24] MEDS ORDERED: OMEP40EC23 PO (11:46)
== END 2023-01-24 12:15 | disposition home or self-care (01) ==
LOC: MED 07:07
DX: K21.9 Gastro-esophageal reflux disease without esophagitis (principal); J45.909 Unspecified asthma, uncomplicated; I10 Essential (primary) hypertension; Z86.69 Personal history of other diseases of the nervous system and sense organs; Z79.899 Other long term (current) drug therapy
CPT/HCPCS: 36415; 71045; 80048; 80076; 83690; 84484; 85025; 93005; 99285

== ENCOUNTER 2023-02-02 03:58 | Emergency (ER) | payer OTHER ==
[~2023-02-02] VITALS: Ht 182.9 cm; Wt 99.8 kg
[~2023-02-02 03:58] MED LIST changes: +FAMO-92 PO; +OMEP40EC23 PO
[2023-02-02 04:00] VITALS: BP 104/70; PULSE 76; RESP 17; TEMP 97.7; O2SAT 97
[2023-02-02 06:00] VITALS: BP 104/70; PULSE 76; RESP 17; TEMP 97.7; O2SAT 97
== END 2023-02-02 06:00 | disposition home or self-care (01) ==
LOC: MED 03:58
DX: F10.129 Alcohol abuse with intoxication, unspecified (principal); J45.909 Unspecified asthma, uncomplicated; K21.9 Gastro-esophageal reflux disease without esophagitis; I10 Essential (primary) hypertension; Z86.69 Personal history of other diseases of the nervous system and sense organs; Z79.899 Other long term (current) drug therapy; Y90.9 Presence of alcohol in blood, level not specified
CPT/HCPCS: 99283

== ENCOUNTER 2023-02-26 09:17 | Inpatient (IN) | payer OTHER ==
[~2023-02-26] VITALS: Ht 175.3 cm; Wt 73.5 kg
[2023-02-26 09:19] VITALS: BP 132/98; PULSE 67; RESP 16; TEMP 89; O2SAT 95
[2023-02-26] MEDS ORDERED: NACL 0.9% 1,000 ML IV SCH (09:40)
[2023-02-26 10:09] LABS: BASOPHILS % (AUTO) 1.5 % (0.0-2.0); EOSINOPHILS % (AUTO) 1.8 % (0.0-4.0); HEMATOCRIT 40.8 % (36-52); HEMOGLOBIN 13.4 g/dL (12.0-18.0); LYMPHOCYTES # (AUTO) 1.1 K/uL (2.0-11.5); LYMPHOCYTES % (AUTO) 46.8 % (20.5-51.1); MEAN CORPUSCULAR HEMOGLOBIN 33 pg (27-31); MEAN CORPUSCULAR HGB CONC 33 g/dL (33-37); MEAN CORPUSCULAR VOLUME 100.2 fL (80-94); MONOCYTES # (AUTO) 0.2 K/uL (0.8-1.0); MONOCYTES % (AUTO) 9.7 % (1.7-9.3); NEUTROPHILS % (AUTO) 40.2 % (42.2-75.2); PLATELET COUNT (AUTO) 171 K/uL (140-450); RED BLOOD CELL COUNT(AUTO) 4.07 MIL/uL (4.20-6.10); RED CELL DISTRIBUTION WIDTH 17.2 % (11.6-13.7); WHITE BLOOD COUNT (AUTO) 2.4 K/uL (4.8-10.8)
[2023-02-26 10:26] LABS: ANION GAP 12.8 (8-16); CALCIUM 8.6 mg/dL (8.5-10.1); CREATININE 0.5 mg/dL (0.6-1.3); INR 1.17 (0.8-1.2); PARTIAL THROMBOPLASTIN TIME 28.1 secs (22-35.6); POTASSIUM 4.8 mmol/L (3.5-5.1); PROTHROMBIN TIME 12.2 secs (10.8-13.4)
[2023-02-26] MEDS ORDERED: NACL 0.9% 1,000 ML IV ONE (10:30)
[2023-02-26] MEDS ORDERED: cefTRIAXone 1,000 MG VIAL ONE (10:36)
[2023-02-26 10:41] LABS: ALANINE AMINOTRANSFERASE 95 U/L (12-78); ALBUMIN 3.8 g/dL (3.4-5.0); ALKALINE PHOSPHATASE 129 U/L (50-136); ASPARTATE AMINOTRANSFERASE 107 U/L (15-37); BILIRUBIN,DIRECT 0.1 mg/dL (0.0-0.3); CREATINE KINASE, TOTAL 155 U/L (39-308); LIPASE 149 U/L (16-77); TOTAL BILIRUBIN 0.1 mg/dL (0.0-1.0); TOTAL PROTEIN, SERUM 7.2 g/dL (6.4-8.2)
[2023-02-26 10:44] LABS: SALICYLATE < 2.8 mg/dL (2.8-20.0)
[2023-02-26 10:46] LABS: ALCOHOL, BLOOD 520 mg/dL (<10)
[2023-02-26] MEDS ORDERED: MAG SULF 2000 MG/WATER PREMIX 50 ML IV STA (10:54)
[2023-02-26] MEDS ORDERED: FOLIC ACID 5 MG, MULTIVITAMIN-12 10 ML in NACL 0.9% 1,000 ML IV ONE (10:55)
[2023-02-26] MEDS ORDERED: THIAMINE 200 MG/2 ML VIAL IM ONE (10:55)
[2023-02-26 10:57] LABS: LACTIC ACID 1.7 mmol/L (0.4-2.0)
[2023-02-26 11:06] LABS: ACETAMINOPHEN < 0.5 ug/ml (10-30)
[2023-02-26] MEDS ORDERED: THIAMINE 200 MG/2 ML VIAL ONE (12:29)
[2023-02-26] MEDS ORDERED: ACETAMINOPHEN 325 MG TAB PO PRN (12:30)
[2023-02-26 12:31] LABS: APPEARANCE,URINE CLEAR (CLEAR); BILIRUBIN,URINE NEGATIVE (NEGATIVE); BLOOD, URINE NEGATIVE (NEGATIVE); COLOR,URINE YELLOW (YELLOW); LEUKOCYTE ESTERASE ,URINE NEGATIVE (NEGATIVE); NITRITE, URINE NEGATIVE (NEGATIVE); PROTEIN,URINE NEGATIVE (NEGATIVE); UGLUCOSE NEGATIVE (NEGATIVE); UROBILINOGEN,URINE 0.2 EU/dL (0.2 - 1)
[2023-02-26 12:45] LABS: AMPHETAMINE, URINE NEGATIVE ng/ml (NEG <=1000); BARBITURATE, URINE NEGATIVE ng/ml (NEG <=200); BENZODIAZEPINE, URINE POSITIVE ng/mL (NEG <=200); CANNABINOID, URINE NEGATIVE ng/mL (NEG <=50); COCAINE, URINE NEGATIVE ng/mL (NEG <=300); OPIATE, URINE NEGATIVE ng/mL (NEG <=2000); PHENCYCLIDINE SCREEN,URINE NEGATIVE ng/mL (NEG <=25)
[2023-02-26] MEDS: DEXT 5% /NACL 0.9% 1,000 ML IV SCH ×2 (16:40→22:03)
[2023-02-26] MEDS: LORazepam 2 MG/ML VIAL IVP PRN ×2 (17:21→22:04)
[2023-02-26 21:50] VITALS: PULSE 128; RESP 18; O2SAT 95
[2023-02-26] MEDS: levETIRAcetam 500 MG TAB PO SCH (22:04)
[2023-02-27] VITALS (7 sets, daily range): BP systolic 123–137; BP diastolic 50–90; PULSE 73–98; RESP 18–20; TEMP 96.9–99; O2SAT 94–99
[2023-02-27] MEDS: LORazepam 2 MG/ML VIAL IVP PRN ×2 (04:28→12:23)
[2023-02-27] MEDS: DEXT 5% /NACL 0.9% 1,000 ML IV SCH ×2 (04:31→12:23)
[2023-02-27 06:48] LABS: ALBUMIN 3.1 g/dL (3.4-5.0); ANION GAP 13.2 (8-16); CALCIUM 8.5 mg/dL (8.5-10.1); CARBON DIOXIDE 28.3 mmol/L (21-32); CREATININE 0.7 mg/dL (0.6-1.3); MAGNESIUM 1.7 mg/dL (1.8-2.4); POTASSIUM 3.5 mmol/L (3.5-5.1); TOTAL BILIRUBIN 0.5 mg/dL (0.0-1.0); TOTAL PROTEIN, SERUM 7.1 g/dL (6.4-8.2)
[2023-02-27] MEDS: levETIRAcetam 500 MG TAB PO SCH (08:46)
[2023-02-27 08:54] LABS: BASOPHILS # (AUTO) 0.1 K/uL (0.00-0.22); BASOPHILS % (AUTO) 1.3 % (0.0-2.0); HEMATOCRIT 34.3 % (36-52); HEMOGLOBIN 11.6 g/dL (12.0-18.0); LYMPHOCYTES # (AUTO) 0.8 K/uL (2.0-11.5); LYMPHOCYTES % (AUTO) 20.4 % (20.5-51.1); MEAN CORPUSCULAR HEMOGLOBIN 34 pg (27-31); MEAN CORPUSCULAR HGB CONC 34 g/dL (33-37); MEAN CORPUSCULAR VOLUME 99.8 fL (80-94); MONOCYTES # (AUTO) 0.4 K/uL (0.8-1.0); MONOCYTES % (AUTO) 9.1 % (1.7-9.3); NEUTROPHILS # (AUTO) 2.7 K/uL (1.8-7.7); NEUTROPHILS % (AUTO) 68.2 % (42.2-75.2); PLATELET COUNT (AUTO) 148 K/uL (140-450); RED BLOOD CELL COUNT(AUTO) 3.44 MIL/uL (4.20-6.10); RED CELL DISTRIBUTION WIDTH 17.2 % (11.6-13.7)
[2023-02-27] MEDS ORDERED: THIAMINE 100 MG TAB PO SCH (09:00)
[2023-02-27] MEDS ORDERED: PANTOPRAZOLE 40 MG TABEC PO SCH (09:00)
[2023-02-27] MEDS ORDERED: FOLIC ACID 1 MG TAB PO SCH (09:00)
[2023-02-27] MEDS ORDERED: MULTIVITAMIN/MINERALS 1 TAB PO SCH (09:00)
== END 2023-02-27 15:50 | disposition home or self-care (01) | DRG 815 ==
LOC: MED 09:17 → MTU 12:32 → MMU 19:54
PROVIDERS: ADMIT Internal Medicine; ATTEND Internal Medicine
DX: T68.XXXA Hypothermia, initial encounter (principal); J96.21 Acute and chronic respiratory failure with hypoxia; G92.8 Other toxic encephalopathy; R65.10 Systemic inflammatory response syndrome (SIRS) of non-infectious origin without acute organ dysfunction; F10.129 Alcohol abuse with intoxication, unspecified; Z59.00 Homelessness unspecified; J45.909 Unspecified asthma, uncomplicated; K21.9 Gastro-esophageal reflux disease without esophagitis; T51.91XA Toxic effect of unspecified alcohol, accidental (unintentional), initial encounter; X31.XXXA Exposure to excessive natural cold, initial encounter; Y90.8 Blood alcohol level of 240 mg/100 ml or more
CPT/HCPCS: 36415; 70450; 71045; 80048; 80053; 80076; 80305; 81003; 82140; 82550; 82553; 83605; 83690; 83735; 84484; 85025; 85610; 85730; 87040; 87081; 87086; 93005; 96360; 99285; A9153; G0480; G0482; J0696; J2060; J3411; J3475; J3490; J7030

== ENCOUNTER 2023-03-01 03:23 | Emergency (ER) | payer OTHER ==
[~2023-03-01] VITALS: Ht 180.3 cm; Wt 70.8 kg
[~2023-03-01 03:23] MED LIST changes: -ACET-1182 PO
[2023-03-01 03:31] VITALS: BP 114/77; PULSE 90; RESP 20; TEMP 97.9; O2SAT 98
[2023-03-01 04:20] VITALS: BP 103/75; PULSE 85; RESP 12; TEMP 97.9; O2SAT 97
[2023-03-01] MEDS ORDERED: NACL 0.9% 1,000 ML IV ONE (04:30)
== END 2023-03-01 06:00 | disposition home or self-care (01) ==
LOC: MED 03:23
DX: F10.129 Alcohol abuse with intoxication, unspecified (principal); J45.909 Unspecified asthma, uncomplicated; K21.9 Gastro-esophageal reflux disease without esophagitis; Z86.69 Personal history of other diseases of the nervous system and sense organs; Z79.899 Other long term (current) drug therapy; Y90.9 Presence of alcohol in blood, level not specified; W18.39XA Other fall on same level, initial encounter; Y92.89 Other specified places as the place of occurrence of the external cause; Y93.89 Activity, other specified; Y99.8 Other external cause status
CPT/HCPCS: 70450; 72125; 96360; 99284; J7030

== ENCOUNTER 2023-03-10 09:46 | Emergency (ER) | payer OTHER ==
[~2023-03-10] VITALS: Ht 180.3 cm; Wt 81.6 kg
[~2023-03-10 09:46] MED LIST changes: +CHLO-836 PO; -LIB25 PO
[2023-03-10 09:49] VITALS: BP 151/84; PULSE 120; RESP 16; TEMP 97.1; O2SAT 98
[2023-03-10] MEDS ORDERED: ACETAMINOPHEN EXTRA STRENGTH 500 MG TAB PO ONE (10:20)
[2023-03-10] MEDS ORDERED: CHLO-836 PO ×3 (10:23→10:54)
== END 2023-03-10 11:11 | disposition home or self-care (01) ==
LOC: MED 09:46
DX: J06.9 Acute upper respiratory infection, unspecified (principal); J45.909 Unspecified asthma, uncomplicated; K21.9 Gastro-esophageal reflux disease without esophagitis; I10 Essential (primary) hypertension; Z79.899 Other long term (current) drug therapy
CPT/HCPCS: 99283

== ENCOUNTER 2023-03-20 21:06 | Emergency (ER) | payer OTHER ==
[~2023-03-20] VITALS: Ht 175.3 cm; Wt 81.6 kg
[2023-03-20 21:06] VITALS: BP 119/60; PULSE 85; RESP 18; TEMP 97.6; O2SAT 99
[2023-03-20 21:10] VITALS: BP 119/60; PULSE 85; RESP 18; TEMP 97.6
[2023-03-20 21:15] VITALS: O2SAT 99
== END 2023-03-21 01:34 | disposition home or self-care (01) ==
LOC: MED 21:06
DX: M79.671 Pain in right foot (principal); M79.672 Pain in left foot; I10 Essential (primary) hypertension; K21.9 Gastro-esophageal reflux disease without esophagitis; J45.909 Unspecified asthma, uncomplicated; Z79.899 Other long term (current) drug therapy
CPT/HCPCS: 99283

== ENCOUNTER 2023-06-27 17:51 | Inpatient (IN) | payer OTHER ==
[~2023-06-27] VITALS: Ht 180.3 cm; Wt 71.2 kg
[~2023-06-27 17:51] MED LIST changes: +CHLO-757 PO; -CHLO-836 PO; +IBUP-2213 PO
[2023-06-27 18:08] VITALS: BP 79/49; PULSE 95; RESP 20; TEMP 98.1; O2SAT 93
[2023-06-27] MEDS ORDERED: NACL 0.9% 1,000 ML IV SCH (19:00)
[2023-06-27 19:55] LABS: BASOPHILS # (AUTO) 0.1 K/uL (0.00-0.22); BASOPHILS % (AUTO) 1.3 % (0.0-2.0); EOSINOPHILS # (AUTO) 0.3 K/uL (0-0.4); EOSINOPHILS % (AUTO) 6.2 % (0.0-4.0); HEMATOCRIT 35.6 % (36-52); LYMPHOCYTES # (AUTO) 1.2 K/uL (2.0-11.5); LYMPHOCYTES % (AUTO) 29.5 % (20.5-51.1); MEAN CORPUSCULAR HEMOGLOBIN 32 pg (27-31); MEAN CORPUSCULAR HGB CONC 34 g/dL (33-37); MEAN CORPUSCULAR VOLUME 95.5 fL (80-94); MONOCYTES # (AUTO) 0.7 K/uL (0.8-1.0); MONOCYTES % (AUTO) 17.6 % (1.7-9.3); NEUTROPHILS # (AUTO) 1.8 K/uL (1.8-7.7); NEUTROPHILS % (AUTO) 45.4 % (42.2-75.2); PLATELET COUNT (AUTO) 107 K/uL (140-450); RED BLOOD CELL COUNT(AUTO) 3.73 MIL/uL (4.20-6.10); RED CELL DISTRIBUTION WIDTH 17.2 % (11.6-13.7); WHITE BLOOD COUNT (AUTO) 4.1 K/uL (4.8-10.8)
[2023-06-27 20:27] LABS: LACTIC ACID 2.3 mmol/L (0.4-2.0)
[2023-06-27 20:30] LABS: ANION GAP 16.5 (8-16); CALCIUM 8.7 mg/dL (8.5-10.1); CARBON DIOXIDE 24.6 mmol/L (21-32); CREATININE 1.2 mg/dL (0.6-1.3); POTASSIUM 4.1 mmol/L (3.5-5.1)
[2023-06-27 20:32] LABS: ALANINE AMINOTRANSFERASE 189 U/L (12-78); ALBUMIN 3.7 g/dL (3.4-5.0); ALKALINE PHOSPHATASE 78 U/L (50-136); ASPARTATE AMINOTRANSFERASE 394 U/L (15-37); BILIRUBIN,DIRECT 0.1 mg/dL (0.0-0.3); CREATINE KINASE, TOTAL 2171 U/L (39-308); LIPASE 137 U/L (16-77); TOTAL BILIRUBIN 0.7 mg/dL (0.0-1.0); TOTAL PROTEIN, SERUM 6.9 g/dL (6.4-8.2)
[2023-06-27] MEDS: NACL 0.9% 1,000 ML IV ONE ×2 (20:40→21:04)
[2023-06-27] MEDS ORDERED: KCL 20 MEQ IN 100 mL PREMIX 200 ML IV PRN (21:30)
[2023-06-27] MEDS ORDERED: ONDANSETRON 4 MG/2 ML VIAL IVP PRN (21:30)
[2023-06-27] MEDS ORDERED: MAG SULF 2000 MG/WATER PREMIX 50 ML IV PRN (21:30)
[2023-06-27] MEDS ORDERED: HYDROcodone/APAP 5/325 MG 1 TAB TAB PO PRN (21:30)
[2023-06-27] MEDS ORDERED: cefTRIAXone 1,000 MG VIAL ONE (21:44)
[2023-06-27] MEDS: LACTATED RINGERS 1,000 ML IV SCH (21:45)
[2023-06-27] MEDS: LORazepam 1 MG TAB PO ONE (21:58)
[2023-06-27] MEDS ORDERED: KEP500 PO (22:03)
[2023-06-27 22:13] LABS: APPEARANCE,URINE CLEAR (CLEAR); BILIRUBIN,URINE NEGATIVE (NEGATIVE); BLOOD, URINE 1+ (NEGATIVE); COLOR,URINE YELLOW (YELLOW); LEUKOCYTE ESTERASE ,URINE 3+ (NEGATIVE); NITRITE, URINE NEGATIVE (NEGATIVE); PROTEIN,URINE TRACE (NEGATIVE); UGLUCOSE NEGATIVE (NEGATIVE)
[2023-06-27 22:14] LABS: ALCOHOL, BLOOD 237 mg/dL (<10)
[2023-06-27 22:15] LABS: SALICYLATE < 2.8 mg/dL (2.8-20.0)
[2023-06-27 22:29] LABS: AMPHETAMINE, URINE NEGATIVE ng/ml (NEG <=1000); BARBITURATE, URINE NEGATIVE ng/ml (NEG <=200); BENZODIAZEPINE, URINE POSITIVE ng/mL (NEG <=200); CANNABINOID, URINE NEGATIVE ng/mL (NEG <=50); COCAINE, URINE NEGATIVE ng/mL (NEG <=300); OPIATE, URINE NEGATIVE ng/mL (NEG <=2000); PHENCYCLIDINE SCREEN,URINE NEGATIVE ng/mL (NEG <=25)
[2023-06-27 22:31] LABS: RBC,URINE 11-20 (MOD) /HPF (0-5); WBC,URINE TOO MANY TO COUNT /HPF (0-5)
[2023-06-27 22:32] LABS: BACTERIA,URINE >30 (MANY) /HPF (None Seen); MUCUS,URINE None Seen /LPF (None Seen); SQUAMOUS EPITHELIAL CELL,UR 0-3 (FEW) /LPF (0-3 (FEW))
[2023-06-27 23:55] VITALS: BP 115/80; PULSE 78; RESP 20; TEMP 98.2; O2SAT 97; O2SAT 98
[2023-06-28] VITALS (7 sets, daily range): BP systolic 102–150; BP diastolic 69–97; PULSE 66–90; RESP 18–20; TEMP 97.4–99.2; O2SAT 95–99
[2023-06-28] MEDS: PANTOPRAZOLE 40 MG TABEC PO SCH (05:43)
[2023-06-28 05:58] LABS: BASOPHILS % (AUTO) 1.2 % (0.0-2.0); EOSINOPHILS # (AUTO) 0.2 K/uL (0-0.4); HEMATOCRIT 35.1 % (36-52); HEMOGLOBIN 12.1 g/dL (12.0-18.0); LYMPHOCYTES # (AUTO) 0.5 K/uL (2.0-11.5); LYMPHOCYTES % (AUTO) 14.6 % (20.5-51.1); MEAN CORPUSCULAR HEMOGLOBIN 33 pg (27-31); MEAN CORPUSCULAR HGB CONC 35 g/dL (33-37); MEAN CORPUSCULAR VOLUME 95.4 fL (80-94); MONOCYTES # (AUTO) 0.6 K/uL (0.8-1.0); MONOCYTES % (AUTO) 16.3 % (1.7-9.3); NEUTROPHILS # (AUTO) 2.2 K/uL (1.8-7.7); NEUTROPHILS % (AUTO) 62.9 % (42.2-75.2); PLATELET COUNT (AUTO) 87 K/uL (140-450); RED BLOOD CELL COUNT(AUTO) 3.67 MIL/uL (4.20-6.10); RED CELL DISTRIBUTION WIDTH 17.6 % (11.6-13.7); WHITE BLOOD COUNT (AUTO) 3.5 K/uL (4.8-10.8)
[2023-06-28 07:00] LABS: ALBUMIN 3.4 g/dL (3.4-5.0); ANION GAP 15.6 (8-16); CALCIUM 8.4 mg/dL (8.5-10.1); CARBON DIOXIDE 23.3 mmol/L (21-32); CREATININE 0.8 mg/dL (0.6-1.3); MAGNESIUM 1.7 mg/dL (1.8-2.4); POTASSIUM 3.9 mmol/L (3.5-5.1); TOTAL BILIRUBIN 0.5 mg/dL (0.0-1.0); TOTAL PROTEIN, SERUM 6.5 g/dL (6.4-8.2)
[2023-06-28 07:11] LABS: CREATINE KINASE, TOTAL 1419 U/L (39-308)
[2023-06-28] MEDS: FOLIC ACID 1 MG TAB PO SCH (08:48)
[2023-06-28] MEDS: levETIRAcetam 500 MG TAB PO SCH (08:48)
[2023-06-28] MEDS: DOCUSATE SODIUM 100 MG GELCAP PO SCH (08:48)
[2023-06-28] MEDS: MAGNESIUM OXIDE 400 MG TAB PO PRN (08:49)
[2023-06-28] MEDS: THIAMINE 100 MG TAB PO SCH (08:49)
[2023-06-28] MEDS: ENOXAPARIN 40 MG/0.4 ML SYR SUBQ SCH (08:52)
[2023-06-28] MEDS: NACL 0.9% 1,000 ML IV SCH (12:32)
[2023-06-28] MEDS ORDERED: VANCOMYCIN PER PHARMACY MC PRN (18:00)
[2023-06-28] MEDS: VANCOMYCIN 1,000 MG in DEXTROSE 5% 250 ML IV SCH (18:56)
[2023-06-28] MEDS: ZOLPIDEM 5 MG TAB PO PRN (20:11)
[2023-06-28] MEDS: MEDS-TO-BEDS MC SCH (20:12)
[2023-06-29] VITALS (7 sets, daily range): BP systolic 133–154; BP diastolic 92–98; PULSE 56–90; RESP 18–20; TEMP 97.7–98.8; O2SAT 95–100
[2023-06-29 07:06] LABS: EOSINOPHILS # (AUTO) 0.2 K/uL (0-0.4); HEMATOCRIT 38.3 % (36-52); LYMPHOCYTES # (AUTO) 0.7 K/uL (2.0-11.5); LYMPHOCYTES % (AUTO) 17.2 % (20.5-51.1); MEAN CORPUSCULAR HEMOGLOBIN 33 pg (27-31); MEAN CORPUSCULAR HGB CONC 34 g/dL (33-37); MONOCYTES # (AUTO) 0.8 K/uL (0.8-1.0); MONOCYTES % (AUTO) 19.1 % (1.7-9.3); NEUTROPHILS # (AUTO) 2.3 K/uL (1.8-7.7); NEUTROPHILS % (AUTO) 57.7 % (42.2-75.2); PLATELET COUNT (AUTO) 109 K/uL (140-450); RED BLOOD CELL COUNT(AUTO) 3.99 MIL/uL (4.20-6.10); RED CELL DISTRIBUTION WIDTH 17.5 % (11.6-13.7)
[2023-06-29 07:42] LABS: ALBUMIN 3.6 g/dL (3.4-5.0); CARBON DIOXIDE 26.6 mmol/L (21-32); CREATININE 0.6 mg/dL (0.6-1.3); MAGNESIUM 1.7 mg/dL (1.8-2.4); POTASSIUM 3.6 mmol/L (3.5-5.1); TOTAL BILIRUBIN 0.7 mg/dL (0.0-1.0)
[2023-06-29 07:59] LABS: CREATINE KINASE, TOTAL 620 U/L (39-308)
[2023-06-29] MEDS: ACETAMINOPHEN 325 MG TAB PO PRN (11:35)
[2023-06-29] MEDS: LORazepam 1 MG TAB PO PRN (13:25)
[2023-06-30] VITALS: BP 149/86; PULSE 54; PULSE 55; RESP 19; TEMP 97.7; O2SAT 97
[2023-06-30 04:00] VITALS: BP 128/82; PULSE 58; PULSE 60; RESP 20; TEMP 97.6; O2SAT 100
[2023-06-30 07:23] LABS: BASOPHILS % (AUTO) 1.1 % (0.0-2.0); EOSINOPHILS # (AUTO) 0.2 K/uL (0-0.4); EOSINOPHILS % (AUTO) 4.4 % (0.0-4.0); HEMATOCRIT 38.9 % (36-52); HEMOGLOBIN 13.2 g/dL (12.0-18.0); LYMPHOCYTES # (AUTO) 0.8 K/uL (2.0-11.5); LYMPHOCYTES % (AUTO) 18.8 % (20.5-51.1); MEAN CORPUSCULAR HEMOGLOBIN 33 pg (27-31); MEAN CORPUSCULAR HGB CONC 34 g/dL (33-37); MEAN CORPUSCULAR VOLUME 96.2 fL (80-94); MONOCYTES # (AUTO) 0.8 K/uL (0.8-1.0); MONOCYTES % (AUTO) 18.4 % (1.7-9.3); NEUTROPHILS # (AUTO) 2.3 K/uL (1.8-7.7); NEUTROPHILS % (AUTO) 57.3 % (42.2-75.2); PLATELET COUNT (AUTO) 125 K/uL (140-450); RED BLOOD CELL COUNT(AUTO) 4.04 MIL/uL (4.20-6.10); RED CELL DISTRIBUTION WIDTH 17.3 % (11.6-13.7); WHITE BLOOD COUNT (AUTO) 4.1 K/uL (4.8-10.8)
[2023-06-30 07:34] LABS: ALBUMIN 3.6 g/dL (3.4-5.0); ANION GAP 10.8 (8-16); CALCIUM 9.2 mg/dL (8.5-10.1); CARBON DIOXIDE 27.7 mmol/L (21-32); CREATININE 0.7 mg/dL (0.6-1.3); MAGNESIUM 1.8 mg/dL (1.8-2.4); POTASSIUM 3.5 mmol/L (3.5-5.1); TOTAL BILIRUBIN 0.8 mg/dL (0.0-1.0)
[2023-06-30 08:00] VITALS: BP 149/96; PULSE 50; PULSE 75; RESP 18; RESP 20; TEMP 97.3; O2SAT 100; O2SAT 98
[2023-06-30] MEDS: VANCOMYCIN 1,000 MG in DEXTROSE 5% 250 ML IV SCH (16:37)
[2023-06-30 20:00] VITALS: BP 116/88; PULSE 74; RESP 18; RESP 19; TEMP 99; O2SAT 95; O2SAT 98
[2023-07-01 04:00] VITALS: BP 112/71; PULSE 110; RESP 19; TEMP 99.3; O2SAT 100
[2023-07-01 06:37] LABS: BASOPHILS # (AUTO) 0.1 K/uL (0.00-0.22); BASOPHILS % (AUTO) 1.2 % (0.0-2.0); EOSINOPHILS # (AUTO) 0.2 K/uL (0-0.4); EOSINOPHILS % (AUTO) 4.7 % (0.0-4.0); HEMATOCRIT 38.2 % (36-52); LYMPHOCYTES # (AUTO) 0.8 K/uL (2.0-11.5); LYMPHOCYTES % (AUTO) 17.7 % (20.5-51.1); MEAN CORPUSCULAR HEMOGLOBIN 33 pg (27-31); MEAN CORPUSCULAR HGB CONC 34 g/dL (33-37); MEAN CORPUSCULAR VOLUME 95.6 fL (80-94); MONOCYTES # (AUTO) 0.8 K/uL (0.8-1.0); MONOCYTES % (AUTO) 18.6 % (1.7-9.3); NEUTROPHILS # (AUTO) 2.5 K/uL (1.8-7.7); NEUTROPHILS % (AUTO) 57.8 % (42.2-75.2); PLATELET COUNT (AUTO) 142 K/uL (140-450); RED BLOOD CELL COUNT(AUTO) 3.99 MIL/uL (4.20-6.10); RED CELL DISTRIBUTION WIDTH 17.3 % (11.6-13.7); WHITE BLOOD COUNT (AUTO) 4.4 K/uL (4.8-10.8)
[2023-07-01 07:09] LABS: ALBUMIN 3.6 g/dL (3.4-5.0); ANION GAP 12.8 (8-16); CALCIUM 8.9 mg/dL (8.5-10.1); CARBON DIOXIDE 26.7 mmol/L (21-32); CREATININE 0.7 mg/dL (0.6-1.3); MAGNESIUM 1.8 mg/dL (1.8-2.4); POTASSIUM 3.5 mmol/L (3.5-5.1); TOTAL BILIRUBIN 0.8 mg/dL (0.0-1.0); TOTAL PROTEIN, SERUM 6.9 g/dL (6.4-8.2)
[2023-07-01 08:00] VITALS: BP 131/92; PULSE 72; RESP 17; TEMP 97.2; O2SAT 97
[2023-07-01] MEDS: METOPROLOL SUCCINATE 50 MG TABER PO SCH (08:32)
[2023-07-01] MEDS: lisinopriL 5 MG TAB PO SCH (08:32)
[2023-07-01 20:00] VITALS: BP 156/92; PULSE 86; RESP 18; TEMP 98.1; O2SAT 94
[2023-07-02 04:00] VITALS: BP 124/69; PULSE 58; RESP 18; TEMP 98.4; O2SAT 94
[2023-07-02 06:19] LABS: BASOPHILS # (AUTO) 0.1 K/uL (0.00-0.22); BASOPHILS % (AUTO) 2.6 % (0.0-2.0); EOSINOPHILS # (AUTO) 0.2 K/uL (0-0.4); HEMATOCRIT 38.3 % (36-52); LYMPHOCYTES # (AUTO) 1.1 K/uL (2.0-11.5); LYMPHOCYTES % (AUTO) 24.3 % (20.5-51.1); MEAN CORPUSCULAR HEMOGLOBIN 33 pg (27-31); MEAN CORPUSCULAR HGB CONC 34 g/dL (33-37); MEAN CORPUSCULAR VOLUME 96.4 fL (80-94); MONOCYTES # (AUTO) 0.9 K/uL (0.8-1.0); NEUTROPHILS # (AUTO) 2.2 K/uL (1.8-7.7); NEUTROPHILS % (AUTO) 48.1 % (42.2-75.2); PLATELET COUNT (AUTO) 157 K/uL (140-450); RED BLOOD CELL COUNT(AUTO) 3.97 MIL/uL (4.20-6.10); RED CELL DISTRIBUTION WIDTH 17.4 % (11.6-13.7); WHITE BLOOD COUNT (AUTO) 4.5 K/uL (4.8-10.8)
[2023-07-02 06:37] LABS: ALBUMIN 3.6 g/dL (3.4-5.0); ANION GAP 12.5 (8-16); CALCIUM 9.3 mg/dL (8.5-10.1); CARBON DIOXIDE 26.8 mmol/L (21-32); CREATININE 0.8 mg/dL (0.6-1.3); MAGNESIUM 1.9 mg/dL (1.8-2.4); POTASSIUM 3.3 mmol/L (3.5-5.1); TOTAL BILIRUBIN 0.7 mg/dL (0.0-1.0); TOTAL PROTEIN, SERUM 6.9 g/dL (6.4-8.2)
[2023-07-02 08:00] VITALS: BP 111/76; PULSE 63; PULSE 86; RESP 16; RESP 18; TEMP 97.7; O2SAT 94; O2SAT 97
[2023-07-02] MEDS: POTASSIUM CHLORIDE 10 MEQ TABER PO PRN (09:26)
[2023-07-02] MEDS ORDERED: LEVO750T75 PO (14:36)
[2023-07-02 16:00] VITALS: BP 110/71; PULSE 62; RESP 18; TEMP 98; O2SAT 98
[2023-07-02 20:00] VITALS: PULSE 57; RESP 18; O2SAT 94
[2023-07-03 04:00] VITALS: BP 135/83; PULSE 53; RESP 18; TEMP 97.6; O2SAT 98
[2023-07-03] MEDS ORDERED: VANCOMYCIN PER PHARMACY MC PRN (07:20)
[2023-07-03 07:55] VITALS: PULSE 62; RESP 20; O2SAT 98
[2023-07-03 08:00] VITALS: BP 126/83; PULSE 52; RESP 20; TEMP 97.8; O2SAT 98
[2023-07-03 14:27] LABS: ANION GAP 11.5 (8-16); CALCIUM 9.5 mg/dL (8.5-10.1); CARBON DIOXIDE 27.8 mmol/L (21-32); POTASSIUM 4.3 mmol/L (3.5-5.1)
[2023-07-03 16:00] VITALS: BP 155/88; PULSE 59; RESP 20; TEMP 99.1; O2SAT 98
[2023-07-03 20:00] VITALS: BP 122/78; PULSE 76; RESP 19; TEMP 99.2; O2SAT 97; O2SAT 98
[2023-07-04 04:00] VITALS: BP 126/74; PULSE 72; RESP 18; TEMP 98.6; O2SAT 97
[2023-07-04 07:12] LABS: CALCIUM 9.6 mg/dL (8.5-10.1); CARBON DIOXIDE 26.9 mmol/L (21-32); CREATININE 0.6 mg/dL (0.6-1.3); POTASSIUM 3.9 mmol/L (3.5-5.1)
[2023-07-04 07:55] VITALS: PULSE 72; RESP 18; O2SAT 99
[2023-07-04] MEDS: VANCOMYCIN 1.25GM PREMIX 250 ML IV SCH (09:23)
== END 2023-07-04 11:30 | disposition home or self-care (01) | DRG 280 ==
LOC: MED 17:51 → MTU 21:42 → MMU 22:55 → MTU 06-28 02:14
PROVIDERS: ADMIT Internal Medicine; ATTEND Internal Medicine
DX: K70.10 Alcoholic hepatitis without ascites (principal); M62.82 Rhabdomyolysis; E87.1 Hypo-osmolality and hyponatremia; N39.0 Urinary tract infection, site not specified; F10.139 Alcohol abuse with withdrawal, unspecified; I69.351 Hemiplegia and hemiparesis following cerebral infarction affecting right dominant side; Z59.00 Homelessness unspecified; J98.11 Atelectasis; G40.909 Epilepsy, unspecified, not intractable, without status epilepticus; I10 Essential (primary) hypertension; J45.909 Unspecified asthma, uncomplicated; K21.9 Gastro-esophageal reflux disease without esophagitis; Z88.8 Allergy status to other drugs, medicaments and biological substances; Z79.899 Other long term (current) drug therapy; Z91.148 Patient's other noncompliance with medication regimen for other reason
CPT/HCPCS: 36415; 71045; 80048; 80053; 80076; 80202; 80305; 81001; 82550; 82553; 83605; 83690; 83735; 84484; 85025; 87040; 87081; 87086; 87186; 93005; 96361; 96365; 99285; G0480; G0482; J0696; J1650; J3370; J3372; J7060

== ENCOUNTER 2023-10-27 20:29 | Emergency (ER) | payer OTHER ==
[~2023-10-27] VITALS: Ht 167.6 cm; Wt 59.9 kg
[~2023-10-27 20:29] MED LIST changes: +LEVO750T75 PO
[2023-10-27 20:30] VITALS: BP 128/94; PULSE 90; RESP 14; TEMP 98.3; O2SAT 99
[2023-10-27 21:45] LABS: BASOPHILS # (AUTO) 0.1 K/uL (0.00-0.22); BASOPHILS % (AUTO) 2.1 % (0.0-2.0); EOSINOPHILS # (AUTO) 0.1 K/uL (0-0.4); EOSINOPHILS % (AUTO) 3.3 % (0.0-4.0); HEMATOCRIT 38.5 % (36-52); HEMOGLOBIN 12.7 g/dL (12.0-18.0); LYMPHOCYTES # (AUTO) 1.4 K/uL (2.0-11.5); LYMPHOCYTES % (AUTO) 52.4 % (20.5-51.1); MEAN CORPUSCULAR HEMOGLOBIN 31 pg (27-31); MEAN CORPUSCULAR HGB CONC 33 g/dL (33-37); MEAN CORPUSCULAR VOLUME 92.8 fL (80-94); MONOCYTES # (AUTO) 0.3 K/uL (0.8-1.0); MONOCYTES % (AUTO) 11.8 % (1.7-9.3); NEUTROPHILS # (AUTO) 0.8 K/uL (1.8-7.7); NEUTROPHILS % (AUTO) 30.4 % (42.2-75.2); PLATELET COUNT (AUTO) 59 K/uL (140-450); RED BLOOD CELL COUNT(AUTO) 4.15 MIL/uL (4.20-6.10); RED CELL DISTRIBUTION WIDTH 19.5 % (11.6-13.7); WHITE BLOOD COUNT (AUTO) 2.6 K/uL (4.8-10.8)
[2023-10-27 21:52] LABS: ANION GAP 15.7 (8-16); CALCIUM 8.5 mg/dL (8.5-10.1); CARBON DIOXIDE 25.1 mmol/L (21-32); CREATININE 0.7 mg/dL (0.6-1.3); POTASSIUM 3.8 mmol/L (3.5-5.1)
[2023-10-27] MEDS: NACL 0.9% 2,000 ML IV ONE (21:56)
[2023-10-27] MEDS: THIAMINE 200 MG/2 ML VIAL IV ONE (21:57)
[2023-10-27 22:07] LABS: ALBUMIN 4.1 g/dL (3.4-5.0); BILIRUBIN,DIRECT 0.3 mg/dL (0.0-0.3); TOTAL BILIRUBIN 0.7 mg/dL (0.0-1.0); TOTAL PROTEIN, SERUM 7.7 g/dL (6.4-8.2)
[2023-10-27] MEDS ORDERED: FAMO-90 PO (23:14)
[2023-10-27 23:34] VITALS: BP 117/73; PULSE 83; RESP 13
== END 2023-10-27 23:10 | disposition home or self-care (01) ==
LOC: MED 20:29
DX: F10.129 Alcohol abuse with intoxication, unspecified (principal); K21.9 Gastro-esophageal reflux disease without esophagitis; Z86.69 Personal history of other diseases of the nervous system and sense organs; Z79.899 Other long term (current) drug therapy; Z88.8 Allergy status to other drugs, medicaments and biological substances; Y90.8 Blood alcohol level of 240 mg/100 ml or more
CPT/HCPCS: 36415; 71045; 80048; 80076; 82550; 82948; 84484; 85025; 93005; 96361; 96374; 99285; G0482; J3411; J7030; Q0092